=== PATIENT | male | born 1945 | race Caucasian/White ===

== ENCOUNTER 2018-08-30 13:35 | Outpatient (REF) | payer OTHER, SELFPAY ==
[2018-08-30 14:58] LABS: ALT 32 U/L (12-78); AST 18 U/L (15-37); Albumin 3.9 g/dL (3.4-5.0); Alkaline Phosphatase 101 U/L (46-116); Anion Gap 6.4 mmol/L (3-11); BUN 10 mg/dL (7-18); Bilirubin, Total 0.4 mg/dL (0.2-1.0); CO2 28.6 mmol/L (21.0-32.0); CREATININE 1.02 mg/dL (0.70-1.30); Calcium 8.8 mg/dL (8.5-10.1); Chloride 100 mmol/L (98-107); Cholesterol 154 mg/dL (50-200); Glucose 110 mg/dL (70-100); HDL Cholesterol 47 mg/dL (40-60); LDL CHOLESTEROL 84 mg/dL (<100); Potassium 4.3 mmol/L (3.5-5.1); Sodium 135 mmol/L (136-145); Triglyceride 179 mg/dL (30-150)
[2018-08-30 16:39] LABS: Hemoglobin A1C 5.8 % (4.5-6.2)
== END 2018-08-30 13:55 ==
LOC: NCHCN 13:35
PROVIDERS: PCP Nurse Practitioner; Visit Provider Nurse Practitioner
DX: I10 Essential (primary) hypertension (principal); E78.5 Hyperlipidemia, unspecified; R73.9 Hyperglycemia, unspecified
CPT/HCPCS: 80053; 80061; 83721; 83036

== ENCOUNTER 2019-09-22 08:20 | Outpatient (REF) | payer OTHER, SELFPAY ==
[2019-09-22 12:34] LABS: ALT 35 U/L (16-63); AST 17 U/L (15-37); Albumin 4.1 g/dL (3.4-5.0); Alkaline Phosphatase 93 U/L (46-116); Anion Gap 9.2 mmol/L (3-11); BUN 12 mg/dL (7-18); Bilirubin, Total 0.4 mg/dL (0.2-1.0); CO2 27.8 mmol/L (21.0-32.0); CREATININE 1.06 mg/dL (0.70-1.30); Calcium 9.1 mg/dL (8.5-10.1); Calculated LDL 55 mg/dL; Chloride 100 mmol/L (98-107); Cholesterol 126 mg/dL (50-200); Glucose 110 mg/dL (70-100); HDL Cholesterol 41 mg/dL (40-60); Potassium 4.1 mmol/L (3.5-5.1); Sodium 137 mmol/L (136-145); Triglyceride 152 mg/dL (30-150)
[2019-09-23 12:46] LABS: PSA, Screening 1.9 ng/ml (0-6.5)
== END 2019-09-22 08:40 ==
LOC: NCHCN 08:20
PROVIDERS: PCP Nurse Practitioner; Visit Provider Nurse Practitioner
DX: I10 Essential (primary) hypertension (principal); E78.5 Hyperlipidemia, unspecified; Z12.5 Encounter for screening for malignant neoplasm of prostate
CPT/HCPCS: 80053; 80061; 84153

== ENCOUNTER 2020-10-15 16:17 | Outpatient (REF) | payer OTHER, SELFPAY ==
[2020-10-15 18:29] LABS: HCT 35.8 % (40.0-50.0); HGB 12.9 g/dL (13.5-17.5); MCH 32.8 pg (27.0-33.0); MCV 91.1 fL (80-95); MPV 8.4 fL (8.0-11.0); Platelet Count 386 10^3/uL (130-400); RBC 3.93 10^6/uL (4.36-5.78); RDW-SD 37.3 fL; WBC 9.37 10^3/uL (4.4-10.8)
[2020-10-15 19:03] LABS: Bilirubin Negative (Negative); Blood Trace-intact (Negative); Clarity Clear (Clear); Glucose Negative (Negative); Ketones Negative (Negative); Leukocyte Esterase Small (Negative); Nitrite Negative (Negative)
[2020-10-15 19:09] LABS: ALT 46 U/L (16-63); AST 29 U/L (15-37); Albumin 3.5 g/dL (3.4-5.0); Alkaline Phosphatase 101 U/L (46-116); BUN 16 mg/dL (7-18); Bilirubin, Total 0.5 mg/dL (0.2-1.0); CREATININE 0.97 mg/dL (0.70-1.30); Calcium 8.5 mg/dL (8.5-10.1); Chloride 93 mmol/L (98-107); Glucose 162 mg/dL (74-106); Potassium 4.1 mmol/L (3.5-5.1); Sodium 130 mmol/L (136-145); Total Protein 6.5 g/dL (6.4-8.2); Vitamin B12 549 pg/mL (193-986)
[2020-10-15 19:36] LABS: Bacteria Rare HPF (Negative); Epithelial Cells Few HPF (Negative)
[2020-10-15 19:37] LABS: C & S Indicated? Yes; Mucus Trace (Negative)
[2020-10-15 20:01] LABS: *AMPHETAMINES SCREEN URINE Negative (Negative); *BARBITURATES SCREEN URINE POSITIVE (Negative); *BENZODIAZEPINES SCREEN URINE Negative (Negative); Cannabinoids THC Negative (Negative); Cocaine Screen,Urine Negative (Negative); METHADONE URINE SCREEN Negative (Negative); OPIATES URINE SCREEN Negative (Negative); Tricyclic Antidepressants Negative (Negative)
[2020-10-16 11:43] LABS: TSH (W/Ref FT4) 1.11 uIU/mL (0.36-3.74)
== END 2020-10-15 16:37 ==
LOC: LBN 16:17
PROVIDERS: PCP Nurse Practitioner Adult Health; Visit Provider Nurse Practitioner Adult Health
DX: F13.10 Sedative, hypnotic or anxiolytic abuse, uncomplicated (principal); R44.3 Hallucinations, unspecified; E87.1 Hypo-osmolality and hyponatremia; R41.82 Altered mental status, unspecified
CPT/HCPCS: 80053; 80307; 85027; 81003; 81015; 82607; 84443; 87086

== ENCOUNTER 2020-10-17 14:30 | Inpatient (IN) | payer OTHER, SELFPAY ==
[2020-10-17] VITALS (67 sets, daily range): BP systolic 120–216; BP diastolic 64–86; PULSE 61–89; RESP 10–28; TEMP 36.3–36.5; O2SAT 94–100
--- NOTE | 2020-10-17 15:15 | RT.EKG_ITS ---
APPROVED REPORT Exam: Resting ECG Patient Location: E HR:70 bpm ECG Measurements Heart Rate 70 AXIS MT 181 P 77 QRSd 147 QRS 22 QT 402 T 13 QTc 433 Conclusion Sinus rhythm...normal P axis, V-rate 60- 99 Right bundle branch block...QRSd>120, terminal axis(90,270) I have reviewed and interpreted ECG and agree with software generated interpretation.
--- NOTE | 2020-10-17 15:22 | W.ED.GENAD ---
Discharge Plan Disposition Patient Disposition: [facility] INPATIENT Condition: Poor Discharge Details Chief Complaint: AMS/LOC Clinical Impression: AMS (altered mental status), Acute hyponatremia, Withdrawal syndrome Admit Date/Time: 10/17/20 17:39 Admit Provider: Misha Sebastian Attending Provider: Misha Sebastian Primary Care Provider: Haritha Cortez ED Provider: Dianna Win Medical Decision Making Patient is a pleasant 75-year-old gentleman presenting today with chief complaint of altered mental status. At this time, patient is ANO x1. Patient was referred here by his primary care. Currently, they are trying to wean the patient off of his. That using phenobarbital. Tumor between primary care and neurology has been ongoing. Patient began having altered mental status after the taper has completed his phenobarbital. However, despite starting again on phenobarbital, his altered mental status is continued to deteriorate. History from the patient is impossible to obtain. Plan to reach out to family. He is reporting currently that he lives with his daughter but chart review looks like he lives with his . Do not appreciate any focal physical deficit on his physical exam but his current mental capability makes differential diagnosis difficult. Plan to begin with very broad blood work and will obtain imaging of his head. Likely, this is associated with the medication changes but that is not resolving despite the changes recently I would like to rule out other potential etiologies. We will recheck the family as well as neurology for consultation. Consulted with Dr. Fernandes. She is wondering if phenobarbital taper which she was given the chronic use of Fioricet, may have been too short. She advised the patient should have any EEG. She very nicely advised that she would be able to read the EEG tomorrow on Thanksgiving if we would be able to get the test. My clinical exam is limited secondary to patient's mental status, I do not see any evidence of acute seizure activity. However, she is concern for potential subclinical status and this is concern is what wants today get more urgent EEG. I did discuss potentially trying benzodiazepines which Dr. Fernandes was okay with. 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 He would like to hold off on the benzodiazepines until the EEG has been obtained. Secondary to organization currently, he would prefer to hold off on the EEG until tomorrow if possible. Labs reviewed. Significant for hyponatremia with sodium of 129. His phenobarbital level is 3.2. Barbiturates Positive. Spoke with Dr. Hardy who would be the accepting physician for night. He advised loading the patient with 10 eli per k I feelg of phenobarbital rather than transitioning the patient to benzodiazepine better for his withdrawal symptoms as well as potential subclinical seizure activity.. FINDINGS: Brain: Age-related involutional changes and chronic microvascular ischemic disease. No evidence for acute transcortical infarct. No mass effect or midline shift. No extra-axial collection. No acute intracranial hemorrhage. Basal cisterns are patent. Cerebral ventricles: No ventriculomegaly. Bones/joints: Unremarkable. No acute fracture. Paranasal sinuses: Visualized sinuses are unremarkable. No fluid levels. Mastoid air cells: Visualized mastoid air cells are well aerated. Soft tissues: Unremarkable. IMPRESSION: No evidence for acute transcortical infarct, acute intracranial hemorrhage, or mass effect. Dr. Hardy at bedside. Plan to admit the patient for altered mental status to the ICU. This is likely associate with withdrawal symptoms. However, there is a plan for the patient undergo EEG tomorrow in the event this could potentially be subclinical status epilepticus. I did discuss these concerns with the patient as well as his son-in-law. Patient son-in-law is currently caring for the patient's who has dementia. I did asked care management to become involved as adjust him to the large amount of increased social stressors at home as well. HPI General Mode of arrival: EMS. Date/Time Provider Initiated Documentation: 10/17/20 14:56. Limitations to Documentation: altered mental status. Information obtained by: patient, family, RN/MD (PCP called prior to arrival), RN notes reviewed and old records reviewed. HPI Narrative: Patient is a 75-year-old gentleman presenting today with complaint of altered mental status. 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 She, in conjunction with neurology, has been trying to wean the patient off this medication with phenobarbital. States that initially he had been doing quite well with this but in recent days has become more altered at home. Was endorsing flashing lights and hearing music. Patient was seen by his primary care 2 days ago at which time 60 mg of phenobarbital was restarted. Patient had completed his initial taper last week. Patient typically resides with his . He is her primary caregiver as she has a history of dementia. Son-in-law is here to assist with history. Patient is unclear to take his medications today. Related Data Home Medications Medication Instructions Recorded Confirmed lovastatin 40 mg tablet 40 mg PO QPM 01/11/20 10/17/20 omeprazole 40 mg capsule,delayed 40 mg PO DAILY 01/11/20 10/17/20 release doxazosin 8 mg tablet 8 mg PO DAILY #30 tab-cap 04/18/20 10/17/20 lisinopril 20 mg tablet 20 mg PO BID #180 tab 07/25/20 10/17/20 ondansetron HCl 4 mg tablet 4 mg PO Q8H PRN #40 tab 10/01/20 10/17/20 trazodone 50 mg tablet 50 mg PO QHS PRN #60 tab 10/01/20 10/17/20 finasteride 5 mg tablet 5 mg PO DAILY #90 tab-cap 10/03/20 10/17/20 phenobarbital 60 mg tablet 60 mg PO DAILY #14 tab MDD 60mg (1 10/15/20 10/17/20 tab) Previous Rx's Medication Instructions Recorded lisinopril 20 mg tablet 20 mg PO BID #180 tab 07/25/20 ondansetron HCl 4 mg tablet 4 mg PO Q8H PRN #40 tab 10/01/20 trazodone 50 mg tablet 50 mg PO QHS PRN #60 tab 10/01/20 finasteride 5 mg tablet 5 mg PO DAILY #90 tab-cap 10/03/20 phenobarbital 60 mg tablet 60 mg PO DAILY #14 tab MDD 60mg (1 10/15/20 tab) Allergies Allergy/AdvReac Type Severity Reaction Status Date / Time pravastatin AdvReac Intermediate Nausea Verified 10/17/20 15:20 ibuprofen AdvReac Mild Contraindic Verified 10/17/20 15:20 ated General Stated Complaint: AMS/LOC JONATHAN: 2 Review of Systems Unobtainable due to mental status [facility] Medical History (Updated 10/17/20 @ 22:58 by ZEYAD Haile) Benign neoplasm of colon Hyperplastic 2010, repeat 2020 Benign prostatic hyperplasia (04/13/13) elevated PSA; S/P BX 2002 Erectile dysfunction Gastroesophageal reflux disease Generalized osteoarthrosis Hammer toe of right foot Hard of hearing Hearing aids Headache chronic fioricet use Hiatal hernia Hyperlipidemia Hypertensive disorder Injury of head (10/23/1951) coma x 7 days Nasal polyp polypectomy x 2 Prostatitis (01/03/13) Smoker pipe Spinal stenosis C-spine Stress at home Trigger finger, right repaired by Dr Palacios Surgical History Hx of cholecystectomy (~05/2015) S/P rotator cuff repair Family History Sister Colon cancer Rheumatoid arthritis Father Heart disease Social History Smoking/Tobacco Use Status: Former Tobacco Use Tobacco: How many years used: 25 Smoking risk assessment performed?: Yes Alcohol Intake: never Drug use: Never Substance use type: does not use Adopted: No Caregiver/Support person: No Foster care: No Household members: spouse Housing: house Number of Children: 3 Communication Needs: Hard of Hearing Do you need help understanding health information?: Never 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 Head: normal to inspection, no palpable skull fracture, normocephalic and atraumatic Ears: hearing grossly normal bilaterally, external ears normal and TM's normal bilaterally General nose exam: external nose normal Mouth: oral mucosae normal and moist mucous membranes Throat: posterior oropharynx normal Eyes Alignment and Position: alignment normal Periorbital: periorbital findings normal Eyelids: eyelids normal Sclera: sclerae normal Cornea: corneas normal Pupils: PERRL EOM: EOM intact bilaterally Neck Neck: normal visual inspection, full ROM, no lymphadenopathy and no meningeal signs Resp Effort & Inspection: normal respiratory effort, able to speak in complete sentences and no respiratory distress Auscultation: clear to auscultation bilaterally, no rales, no rhonchi and no wheezes Cardio Rate: regular rate Rhythm: regular rhythm Heart Sounds: S1 normal and S2 normal GI Inspection: normal to inspection and non-distended Palpation: soft, no hepatosplenomegaly, not firm, no guarding, not rigid and nontender Percussion: normal to percussion Auscultation: normal bowel sounds Back/Spine/Pelvis Cervical Spine: normal cervical lordosis and cervical ROM normal Skin General skin exam: no rashes or lesions noted Neuro General: patient alert, patient awake, oriented Patient Orientation: Person and Confused and moves all extremities Cranial Nerves: PERRL, accommodation normal, EOM intact bilaterally, no nystagmus, facial strength normal, tongue midline and able to rotate head bilaterally Cognition: abnormal cognition Speech: abnormal speech Gait: gait abnormal (not assessed) Motor: muscle tone normal throughout, strength 5/5 throughout, no pronator drift, no movement abnormalities noted and no fasciculations Sensory Exam: no sensory deficits noted Extrem General: normal to inspection, capillary refill normal, no pedal edema and no calf tenderness Psych Appearance: grossly normal and well kempt Mental Status: mental status grossly normal Speech and Movement: speech and movement normal Course Vital Signs Vital signs: Vital Signs Temperature 36.4 C L 10/17/20 15:02 Pulse 73 10/17/20 15:02 Respiratory Rate 20 10/17/20 15:02 Blood Pressure 164/86 H 10/17/20 15:02 Pulse Oximetry 99 10/17/20 15:02 Temperature 36.4 C L 10/17/20 15:02 Temperature Source Temporal Artery Scan 10/17/20 15:02 Pulse 73 10/17/20 15:02 Respiratory Rate 20 10/17/20 15:02 Blood Pressure 164/86 H 10/17/20 15:02 Blood Pressure Position Sitting 10/17/20 15:02 Pulse Oximetry 99 10/17/20 15:02 Oxygen Delivery Method Room Air 10/17/20 15:02 Oxygen Flow Rate 0 10/17/20 15:02 Pain Level 0 10/17/20 15:02
[2020-10-17 15:37] LABS: Abs Immature Grans 0.03 10^3/uL (0.0-0.06); Absolute Basophil Count 0.05 10^3/uL (0.0-0.2); Absolute Eosinophil Count 0.01 10^3/uL (0.0-0.7); Absolute Lymphocyte Count 1.32 10^3/uL (1.2-3.4); Absolute Monocyte Count 1.08 10^3/uL (0.1-0.8); Absolute Neutrophil Count 7.89 10^3/uL (1.2-6.7); Basophils % 0.5; Eosinophils % 0.1; HCT 37.9 % (40.0-50.0); HGB 13.9 g/dL (13.5-17.5); Immature Grans % 0.3; Lymphocytes % 12.7; MCH 33.1 pg (27.0-33.0); MCHC 36.7 % (32.0-36.0); MCV 90.2 fL (80-95); MPV 7.9 fL (8.0-11.0); Monocytes % 10.4; Nucleated RBC 0 %; Platelet Count 413 10^3/uL (130-400); RDW 11.1 % (11.8-14.1); RDW-SD 36.7 fL; WBC 10.38 10^3/uL (4.4-10.8)
[2020-10-17 15:42] LABS: Bilirubin Negative (Negative); Blood Trace-intact (Negative); Clarity Clear (Clear); Glucose Negative (Negative); Ketones 15 mg/dL (Negative); Leukocyte Esterase Small (Negative); Nitrite Negative (Negative); Urobilinogen 0.2 EU/dL (Up TO 0.2)
[2020-10-17 15:52] LABS: Bacteria Negative HPF (Negative); Epithelial Cells Rare HPF (Negative); RBC 0-2 HPF (0-2)
[2020-10-17 15:53] LABS: C & S Indicated? Yes; Crystals Negative HPF (Negative); Mucus Negative (Negative)
--- NOTE | 2020-10-17 16:00 | DI.CT_ITS ---
EXAM: CT HEAD WO altered mental status CLINICAL HISTORY: AMS. TECHNIQUE: Imaging Protocol: Axial computed tomography images with coronal and sagittal reformatted images were created and reviewed COMPARISON: CR BILATERAL HIPS ADULT from 12/14/2012 CT ABD PELVIS WITH CONTRAST from 01/31/2013 IMPRESSION: There is no evidence of skull fracture nor fluid the visualized paranasal sinuses. No evidence of intracranial hemorrhage, mass effect, or shift of midline structures. No extra-axial f luid collections. Ventricles are not enlarged or shifted. There is periventricular hypodensity in the right frontal lobe white matter forceps and a lesser amou nt of white matter disease in the left periventricular white matter. No mass effect. IMPRESSION: 1. ASYMMETRIC PERIVENTRICULAR HYPODENSITY IN THE RIGHT FRONTAL LOBE, MOST PROBABLY RELATED TO PRIOR I SCHEMIC EVENT. NO HEMORRHAGE. IF CLINICALLY INDICATED FOLLOW-UP MRI CAN BE PERFORMED FOR ADDED SPECIF ICITY. Incidental Findings RADIATION DOSE DELIVERED: 750.92mGy.cm Total DLP DATA REPOSITORY: All CT scans at this facility are submitted to the National Radiology Data Registry (NRDR) Dose Index Registry (DIR) with the [employer] ([employer]). RADIATION OPTIMIZATION: All CT scans at this facility use at least one of these dose optimization te chniques: automated exposure control; mA and/or kV adjustment per patient size (includes targeted exa ms where dose is matched to clinical indication); or iterative reconstruction.
[2020-10-17 16:03] LABS: PHENOBARBITAL 3.2 ug/mL (15.0-40.0)
[2020-10-17 16:06] LABS: ALT 54 U/L (16-63); AST 37 U/L (15-37); Albumin 3.8 g/dL (3.4-5.0); Alkaline Phosphatase 133 U/L (46-116); Anion Gap 6.7 mmol/L (3-11); BUN 13 mg/dL (7-18); Bilirubin, Total 0.5 mg/dL (0.2-1.0); CO2 28.3 mmol/L (21.0-32.0); CREATININE 0.99 mg/dL (0.70-1.30); Calcium 8.8 mg/dL (8.5-10.1); Chloride 94 mmol/L (98-107); Glucose 133 mg/dL (74-106); Magnesium 1.9 mg/dL (1.8-2.4); Potassium 3.6 mmol/L (3.5-5.1); Sodium 129 mmol/L (136-145); Total Protein 7.7 g/dL (6.4-8.2)
[2020-10-17 16:10] LABS: *AMPHETAMINES SCREEN URINE Negative (Negative); *BARBITURATES SCREEN URINE POSITIVE (Negative); *BENZODIAZEPINES SCREEN URINE Negative (Negative); Cannabinoids THC Negative (Negative); Cocaine Screen,Urine Negative (Negative); METHADONE URINE SCREEN Negative (Negative); OPIATES URINE SCREEN Negative (Negative)
[2020-10-17 16:11] LABS: Ammonia < 10 umol/L (11-32); Troponin I < 0.05 ng/mL (<0.06)
[2020-10-17 16:12] LABS: Tricyclic Antidepressants Negative (Negative)
[2020-10-17 16:15] LABS: ETHANOL BLOOD 4.2 mg/dL (<3); TSH 0.69 uIU/mL (0.36-3.74)
--- NOTE | 2020-10-17 17:28 | DI.VRAD_ITS ---
PROCEDURE INFORMATION: Exam: CT Head Without Contrast Exam date and time: 10/17/2020 4:42 PM Age: 75 years old Clinical indication: Altered mental status/memory loss TECHNIQUE: Imaging protocol: Computed tomography of the head without contrast. COMPARISON: No relevant prior studies available. FINDINGS: Brain: Age-related involutional changes and chronic microvascular ischemic disease. No evidence for acute transcortical infarct. No mass effect or midline shift. No extra-axial collection. No acute intracranial hemorrhage. Basal cisterns are patent. Cerebral ventricles: No ventriculomegaly. Bones/joints: Unremarkable. No acute fracture. Paranasal sinuses: Visualized sinuses are unremarkable. No fluid levels. Mastoid air cells: Visualized mastoid air cells are well aerated. Soft tissues: Unremarkable. IMPRESSION: No evidence for acute transcortical infarct, acute intracranial hemorrhage, or mass effect. Dictated and Authenticated by: Jose Lamb MD. Ordering:ENMA Bustamante MD
[2020-10-17] MEDS: Normal Saline Flush 10 ML SYR IVP (17:42)
[2020-10-17] MEDS: PHENobarbital 130 MG/ML VIAL 650 MG IVP (17:42)
[2020-10-17] MEDS: Normal Saline 50 ML 200 ML (17:43)
[2020-10-17] MEDS: Normal Saline 1,000 ML 125 ML IV (18:02)
--- NOTE | 2020-10-17 19:04 | W.PM.HP.N ---
Date of service: 10/17/20 Time of Service: 19:05 Assessment and Plan Assessment and plan (1) Hyponatremia: Status: Acute Assessment and plan: Unclear etiology. Possible SIADH (2) Encephalopathy acute: Status: Acute Assessment and plan: Differential diagnosis include acute barbiturate withdrawal versus subclinical seizure. We will proceed with loading dose of phenobarbital at 10 mg/kg IV over 30 minutes. This should achieve a therapeutic level of his phenobarbital. We will start him on oral phenobarbital at a dose of 2 mg/kg/day in divided doses. We will start him at 64.8 mg tablet twice a day. I will get repeat phenobarbital level after his iv bolus to asses that he has achieved at least a level of 15 mcg/mL. I would avoid concommittant use of benzodiazepines in this patient who has been on phenobarbital d/t concern of over sedation and potential for respiratory depression which may necessitate emergent intubation. If he is treated w/ phenobarbital alone, it is unlikely that he will become oversedated particularly if he is given proper loading dose and doseage less than 30 mg/kg are used. If he has visible seizure then he may need benzodiazepines in addition to his phenobarbital and I would add Keppra at that point to prevent seizure activity. EEG will be done in the a.m. and per the ER, Dr. Fernandes has indicated that she will read the EEG. History of Present Illness History of Present Illness Chief Complaint: acute mental status change Narrative: 75-year-old gentleman with a history of chronic Fioricet use who was transitioned over to phenobarbital to try to wean him off of his chronic Fioricet use. Patient has a past medical history significant for spinal stenosis as well as essential hypertension and a remote closed head injury as a child in which she was in a coma for a week at the age of 66 years old. His primary care provider Haritha Arevalo was working with Dr. Alyssa Fernandes to try to wean him off of Fioricet and he was put on a phenobarbital taper. He was rapidly tapered off of phenobarbital when he was followed up by his PCP and noted to have altered mental status which was attributed to rapid wean off of phenobarbital. He has no known history of seizure disorder. Patient reportedly had taken Fioricet for many years for headaches. When he was tapered off the phenobarbital he began having visual and auditory hallucinations for the past week and was put back on the phenobarbital. His stepson reported that the patient tried to strangle his dog. He was brought in to the emergency department at [facility] for further evaluation. Work-up included noncontrast CT scan of his head which showed no evidence for acute transcortical infarct no intracranial hemorrhage or mass-effect. ER personnel evaluated the patient and could not find a focal neurologic signs of a CVA. He had no loss of bowel or bladder control and had no visible tonic-clonic activity. He was noted by nursing staff to have some myoclonic movement. ZEYAD Haile from the emergency department spoke with Dr. Alyssa Fernandes, neurologist who expressed some concerns for possible subclinical seizure and that he may be in a postictal state. She recommend getting an EEG. EEG cannot be obtained today but will be obtained tomorrow morning. Dianna Win discussed with Dr. Fernandes about possible use of benzodiazepines however I discussed the case with Dianna Win and I feel that the patient would be better served with a loading dose of phenobarbital since his level is subtherapeutic. His labs including a CBC, CMP, urine tox screen, phenobarbital level were obtained. His CBC is unremarkable.His CMP is remarkable for mild hyponatremia with serum sodium of 130 with a repeat level of 129 after a normal saline fluid bolus. BUN and creatinine and LFTs were normal. His ammonia level was less than 10. TSH was normal at 0.69. Urine toxicology screen was positive for barbiturates but negative for all other drugs of abuse other than an ethanol level of 4.2 and a phenobarbital level of 3.2. I feel that the patient should be given a loading dose of phenobarbital 10 mg/kg IV bolus over 30 minutes which should achieve at least a therapeutic level of 15 mcg/mL. Given that he already has a phenobarbital level of 3.2 this should get an adequate level to prevent seizures and would also treat his acute barbiturate withdrawal. We will get an EEG in the morning and he will be monitored overnight in the intensive care unit. Is unclear as to the etiology of his hyponatremia as he is not currently on a diuretic. I will put him on fluid restriction and monitor his electrolytes. We will also send off serum osmolality and urine osmolality tonight. Review of Systems Unobtainable due to mental condition [facility] Medical History (Updated 11/25/20 @ 19:25 by Misha Sebastian) Benign neoplasm of colon Hyperplastic 2010, repeat 2020 Benign prostatic hyperplasia (04/13/13) elevated PSA; S/P BX 2002 Erectile dysfunction Gastroesophageal reflux disease Generalized osteoarthrosis Hammer toe of right foot Hard of hearing Hearing aids Headache chronic fioricet use Hiatal hernia Hyperlipidemia Hypertensive disorder Injury of head (10/23/1951) coma x 7 days Nasal polyp polypectomy x 2 Prostatitis (01/03/13) Smoker pipe Spinal stenosis C-spine Stress at home Trigger finger, right repaired by Dr Palacios Surgical History Hx of cholecystectomy (~05/2015) S/P rotator cuff repair Family History Sister Colon cancer Rheumatoid arthritis Father Heart disease Social History Smoking/Tobacco Use Status: Former Tobacco Use Tobacco: How many years used: 25 Smoking risk assessment performed?: Yes Alcohol Intake: never Drug use: Never Substance use type: does not use Adopted: No Caregiver/Support person: No Foster care: No Household members: spouse Housing: house Number of Children: 3 Communication Needs: Hard of Hearing Do you need help understanding health information?: Never 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 Meds Home Medications and Allergies Home Medications Medication Instructions Recorded Confirmed Type lovastatin 40 mg tablet 40 mg PO QPM 01/11/20 10/17/20 History omeprazole 40 mg capsule,delayed 40 mg PO DAILY 01/11/20 10/17/20 History release doxazosin 8 mg tablet 8 mg PO DAILY #30 tab-cap 04/18/20 10/17/20 History lisinopril 20 mg tablet 20 mg PO BID #180 tab 07/25/20 10/17/20 Rx ondansetron HCl 4 mg tablet 4 mg PO Q8H PRN #40 tab 10/01/20 10/17/20 Rx trazodone 50 mg tablet 50 mg PO QHS PRN #60 tab 10/01/20 10/17/20 Rx finasteride 5 mg tablet 5 mg PO DAILY #90 tab-cap 10/03/20 10/17/20 Rx phenobarbital 60 mg tablet 60 mg PO DAILY #14 tab MDD 60mg (1 10/15/20 10/17/20 Rx tab) Allergies Allergy/AdvReac Type Severity Reaction Status Date / Time pravastatin AdvReac Intermediate Nausea Verified 10/17/20 15:20 ibuprofen AdvReac Mild Contraindic Verified 10/17/20 15:20 ated Exam Narrative Exam Narrative: Elderly gentleman lying in semifowler position on a gurney in the emergency department. He is awake and alert but only oriented to person. He thinks he is at [facility] is unable to give me the correct date. He cannot tell me why he is here in the hospital. He seems to perseverate on certain topics such as his medicines and reports being given the wrong medications. He has trouble getting a complete sentence out or completing his thoughts. He does seem to follow simple commands such as opening his eyes or smiling when I asked him to or raising his arms or grabbing my hand when asked to. HEENT reveals no facial asymmetry. Full extraocular motion intact. Visual jama intact to confrontation. Pupils equally round and reactive. Normal tongue movement. Neck is supple nontender no JVD normal carotid pulses no thyromegaly. Lungs are clear to auscultation Heart regular rate and rhythm without murmur rub or gallop. Abdomen soft nontender NABS no palpable masses no bruits. Lower extremities without peripheral cyanosis or edema. Neuro exam is grossly intact no focal motor deficits in either upper or lower extremities. Normal range of motion. No facial asymmetry. Extraocular motion intact. Speech is clear but at times nonsensical and tangential. With holding his hands outward his eyes closed there is no pronator drift. No tremors. Babinski reflex absent. Sensation grossly intact. Results Labs Result diagrams: 10/17/20 15:20 10/17/20 15:20 Labs: Laboratory Results - last 24 hr 10/17/20 10/17/20 10/17/20 15:20 15:20 15:20 WBC RBC Hgb Hct MCV MCH MCHC RDW Plt Count MPV Immature Gran % Neutrophils % Lymphocytes % Monocytes % Eosinophils % Basophils % Nucleated RBC % Absolute Neutrophils Absolute Lymphocytes Absolute Monocytes Absolute Eosinophils Absolute Basophils VBG Lactate Sodium 129 L Potassium 3.6 Chloride 94 L Carbon Dioxide 28.3 Anion Gap 6.7 BUN 13 Creatinine 0.99 Estimated GFR/1.73 m2 >= 60.00 Glucose 133 H Calcium 8.8 Magnesium 1.9 Total Bilirubin 0.5 AST 37 ALT 54 Alkaline Phosphatase 133 H Ammonia < 10 L Troponin I < 0.05 Total Protein 7.7 Albumin 3.8 TSH 0.69 Urine Color Urine Clarity Urine pH Ur Specific [place] Urine Protein Urine Ketones Urine Blood Urine Nitrite Urine Bilirubin Urine Urobilinogen Ur Leukocyte Esterase Urine RBC Urine WBC Ur Epithelial Cells Urine Crystals Urine Bacteria Urine Mucus Ur Culture Indicated? Urine Glucose Urine Opiates Screen Urine Methadone Screen Ur Barbiturates Screen Ur Tricyclics Screen Ur Amphetamines Screen Phenobarbital U Benzodiazepines Scrn Urine Cocaine Screen Ur THC Screen Ethyl Alcohol 4.2 10/17/20 10/17/20 10/17/20 15:20 15:20 15:20 WBC 10.38 RBC 4.20 L Hgb 13.9 Hct 37.9 L MCV 90.2 MCH 33.1 H MCHC 36.7 H RDW 11.1 L Plt Count 413 H MPV 7.9 L Immature Gran % 0.3 Neutrophils % 76.0 Lymphocytes % 12.7 Monocytes % 10.4 Eosinophils % 0.1 Basophils % 0.5 Nucleated RBC % 0 Absolute Neutrophils 7.89 H Absolute Lymphocytes 1.32 Absolute Monocytes 1.08 H Absolute Eosinophils 0.01 Absolute Basophils 0.05 VBG Lactate Sodium Potassium Chloride Carbon Dioxide Anion Gap BUN Creatinine Estimated GFR/1.73 m2 Glucose Calcium Magnesium Total Bilirubin AST ALT Alkaline Phosphatase Ammonia Troponin I Total Protein Albumin TSH Urine Color Urine Clarity Urine pH Ur Specific [place] Urine Protein Urine Ketones Urine Blood Urine Nitrite Urine Bilirubin Urine Urobilinogen Ur Leukocyte Esterase Urine RBC Urine WBC Ur Epithelial Cells Urine Crystals Urine Bacteria Urine Mucus Ur Culture Indicated? Urine Glucose Urine Opiates Screen Negative Urine Methadone Screen Negative Ur Barbiturates Screen Positive A Ur Tricyclics Screen Negative Ur Amphetamines Screen Negative Phenobarbital 3.2 L U Benzodiazepines Scrn Negative Urine Cocaine Screen Negative Ur THC Screen Negative Ethyl Alcohol 10/17/20 10/17/20 15:20 15:20 WBC RBC Hgb Hct MCV MCH MCHC RDW Plt Count MPV Immature Gran % Neutrophils % Lymphocytes % Monocytes % Eosinophils % Basophils % Nucleated RBC % Absolute Neutrophils Absolute Lymphocytes Absolute Monocytes Absolute Eosinophils Absolute Basophils VBG Lactate 1.0 Sodium Potassium Chloride Carbon Dioxide Anion Gap BUN Creatinine Estimated GFR/1.73 m2 Glucose Calcium Magnesium Total Bilirubin AST ALT Alkaline Phosphatase Ammonia Troponin I Total Protein Albumin TSH Urine Color Yellow Urine Clarity Clear Urine pH 7.0 Ur Specific [place] 1.020 Urine Protein 30 H Urine Ketones 15 H Urine Blood Trace-intact H Urine Nitrite Negative Urine Bilirubin Negative Urine Urobilinogen 0.2 Ur Leukocyte Esterase Small H Urine RBC 0-2 Urine WBC 5-10 Ur Epithelial Cells Rare Urine Crystals Negative Urine Bacteria Negative Urine Mucus Negative Ur Culture Indicated? Yes Urine Glucose Negative Urine Opiates Screen Urine Methadone Screen Ur Barbiturates Screen Ur Tricyclics Screen Ur Amphetamines Screen Phenobarbital U Benzodiazepines Scrn Urine Cocaine Screen Ur THC Screen Ethyl Alcohol Last Vital Signs Temp 36.4 C L 10/17/20 17:52 Pulse 68 10/17/20 18:15 Resp 10 L 10/17/20 18:15 BP 140/77 10/17/20 18:15 Pulse Ox 98 10/17/20 18:15 COVID-19 Screening Have you, or household traveled for leisure in last 14 days?: No Had IN PERSON contact w/suspected or confirmed C-19 person: No
[2020-10-17 19:48] LABS: PHENOBARBITAL 2.8 ug/mL (15.0-40.0)
[2020-10-17] MEDS: Enoxaparin 40 MG/0.4 ML SYR SC (22:36)
[2020-10-17] MEDS: Lisinopril 20 MG TAB PO (22:37)
[2020-10-17] MEDS: Lovastatin 40 MG TAB PO (22:37)
[2020-10-18] VITALS (68 sets, daily range): BP systolic 100–184; BP diastolic 42–88; PULSE 56–111; RESP 13–29; TEMP 36.2–36.7; O2SAT 95–100
[2020-10-18 02:24] LABS: COVID-19 RT-PCR UVMMC Result Negative (Negative)
[2020-10-18 07:07] LABS: Anion Gap 7.2 mmol/L (3-11); BUN 10 mg/dL (7-18); CO2 26.8 mmol/L (21.0-32.0); CREATININE 0.97 mg/dL (0.70-1.30); Calcium 8.4 mg/dL (8.5-10.1); Chloride 97 mmol/L (98-107); Glucose 102 mg/dL (74-106); PHENOBARBITAL 15.2 ug/mL (15.0-40.0); Potassium 3.3 mmol/L (3.5-5.1); Sodium 131 mmol/L (136-145)
--- NOTE | 2020-10-18 07:39 | PDOC.CMIN ---
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 He has family locally who are supportive including his daughter, Eliazar and step son, Zachary. He is independent at baseline in the community. CURRENT FUNCTIONAL STATUS:: Iker continues to struggle to communicate verbally, though word finding is improving per RN. He remains in the ICU, closely monitored at this time. He was sitting in his chair when CM met with him, he shared concerns about his 's level of functioning and of his own as well as concerns around their home and managing the needs (washer, refridgerator) on his own. He was forthcoming with information and friendly in interaction. ADVANCE DIRECTIVES:: None on file at [facility], patient unable to discuss at this time. Daughter (currently unavailable, and son on HIPPA) Has patient been provided with info about the portal/API?: Yes Did the patient sign up for the portal?: Yes (Previously) CODE STATUS:: Full Code INSURANCE COVERAGE / FINANCIAL ISSUES:: [facility] MCR replacement PRIMARY CARE PHYSICIAN:: Haritha Cortez POTENTIAL DISCHARGE NEEDS:: Follow up appointment with PCP and neurology. PATIENT/FAMILY EDUCATION NEEDS:: Review discharge instructions, discuss Ask Me Three. ANTICIPATED BARRIERS TO DISCHARGE:: None identified. TRANSPORTATION:: Via private vehicle with family. PLAN:: Iker continues to be closely monitored with some noted improvement in his ability to communicate. Anticipate once he has cleared mentally, he will be permitted to return home with close follow up with his community based providers. Possible outpatient Palliative consult, increased home support referrals. CM continues to follow.
[2020-10-18] MEDS: Omeprazole 20 MG CAPCR 40 MG PO (08:37)
[2020-10-18] MEDS: Lisinopril 20 MG TAB PO ×2 (08:37→20:11)
[2020-10-18] MEDS: Potassium Chloride 20 MEQ TABCR 40 MEQ PO (08:38)
[2020-10-18] MEDS: Doxazosin 2 MG TAB 8 MG PO (08:38)
[2020-10-18] MEDS: PHENobarbital 64.8 MG TAB PO ×2 (08:38→20:10)
[2020-10-18] MEDS: Finasteride 5 MG TAB PO (08:38)
--- NOTE | 2020-10-18 09:04 | W.PM.PROGNOT ---
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 Patient was still receiving normal saline through the night even though I discontinued this yesterday. I intended to restrict his free fluids. His serum sodium remains low at 130 but improved. I will continue to restrict his free fluid and repeat his BMP in the a.m. (2) Encephalopathy acute: Status: Acute Assessment and plan: Probably d/t acute barbituate withdrawal. Per Dr. Fernandes, his EEG did not show any seizure activity. Phenobarbital level is now at 15 mcg/mL and therefore is at the low end of therapeutic. I will continue him on oral phenobarbital at 64.8 mg bid. Repeat level in 3 to 4 days. If his cognitive level continues to improve, I expect him to be discharge in 1 to 2 days. Subjective Subjective Interval history since last seen: Patient is more engaged in conversation, although his conversations remain rather disjointed however his speech is more fluent and there are some complete thoughts to his statements. He seems to perseverate on his , his daughter Eliazar Saini, rehab. He recalls having hallucinations involving a helicopter but states that it was a hallucination. He remains cooperative and is not agitated. He speaks of his tenant. Exam Narrative Exam Narrative: A&Ox person, but not to place or time nor circumstances yet Lungs: clear Heart: RRR, no murmur, rub or gallop Abdomen: soft and nontender Neuro: no focal CN deficits. no tremors, no focal motor findings. still somewhat confused but more coherent speech today Objective Last Vital Signs Temp 36.6 C 10/18/20 03:50 Pulse 64 10/18/20 05:01 Resp 22 10/18/20 06:25 BP 153/70 H 10/18/20 05:01 Pulse Ox 97 10/18/20 05:10 Laboratory Results - last 24 hr 10/17/20 10/17/20 10/17/20 15:20 15:20 15:20 WBC RBC Hgb Hct MCV MCH MCHC RDW Plt Count MPV Immature Gran % Neutrophils % Lymphocytes % Monocytes % Eosinophils % Basophils % Nucleated RBC % Absolute Neutrophils Absolute Lymphocytes Absolute Monocytes Absolute Eosinophils Absolute Basophils VBG Lactate Sodium 129 L Potassium 3.6 Chloride 94 L Carbon Dioxide 28.3 Anion Gap 6.7 BUN 13 Creatinine 0.99 Estimated GFR/1.73 m2 >= 60.00 Glucose 133 H Calcium 8.8 Magnesium 1.9 Total Bilirubin 0.5 AST 37 ALT 54 Alkaline Phosphatase 133 H Ammonia < 10 L Troponin I < 0.05 Total Protein 7.7 Albumin 3.8 TSH 0.69 Urine Color Urine Clarity Urine pH Ur Specific [place] Urine Protein Urine Ketones Urine Blood Urine Nitrite Urine Bilirubin Urine Urobilinogen Ur Leukocyte Esterase Urine RBC Urine WBC Ur Epithelial Cells Urine Crystals Urine Bacteria Urine Mucus Ur Culture Indicated? Urine Glucose Urine Opiates Screen Urine Methadone Screen Ur Barbiturates Screen Ur Tricyclics Screen Ur Amphetamines Screen Phenobarbital U Benzodiazepines Scrn Urine Cocaine Screen Ur THC Screen Ethyl Alcohol 4.2 COVID-19 PCR Nasopharyn COVID-19 PCR Ref Test Perform Site 10/17/20 10/17/20 10/17/20 15:20 15:20 15:20 WBC 10.38 RBC 4.20 L Hgb 13.9 Hct 37.9 L MCV 90.2 MCH 33.1 H MCHC 36.7 H RDW 11.1 L Plt Count 413 H MPV 7.9 L Immature Gran % 0.3 Neutrophils % 76.0 Lymphocytes % 12.7 Monocytes % 10.4 Eosinophils % 0.1 Basophils % 0.5 Nucleated RBC % 0 Absolute Neutrophils 7.89 H Absolute Lymphocytes 1.32 Absolute Monocytes 1.08 H Absolute Eosinophils 0.01 Absolute Basophils 0.05 VBG Lactate Sodium Potassium Chloride Carbon Dioxide Anion Gap BUN Creatinine Estimated GFR/1.73 m2 Glucose Calcium Magnesium Total Bilirubin AST ALT Alkaline Phosphatase Ammonia Troponin I Total Protein Albumin TSH Urine Color Urine Clarity Urine pH Ur Specific [place] Urine Protein Urine Ketones Urine Blood Urine Nitrite Urine Bilirubin Urine Urobilinogen Ur Leukocyte Esterase Urine RBC Urine WBC Ur Epithelial Cells Urine Crystals Urine Bacteria Urine Mucus Ur Culture Indicated? Urine Glucose Urine Opiates Screen Negative Urine Methadone Screen Negative Ur Barbiturates Screen Positive A Ur Tricyclics Screen Negative Ur Amphetamines Screen Negative Phenobarbital 3.2 L U Benzodiazepines Scrn Negative Urine Cocaine Screen Negative Ur THC Screen Negative Ethyl Alcohol COVID-19 PCR Nasopharyn COVID-19 PCR Ref Test Perform Site 10/17/20 10/17/20 10/17/20 15:20 15:20 16:30 WBC RBC Hgb Hct MCV MCH MCHC RDW Plt Count MPV Immature Gran % Neutrophils % Lymphocytes % Monocytes % Eosinophils % Basophils % Nucleated RBC % Absolute Neutrophils Absolute Lymphocytes Absolute Monocytes Absolute Eosinophils Absolute Basophils VBG Lactate 1.0 Sodium Potassium Chloride Carbon Dioxide Anion Gap BUN Creatinine Estimated GFR/1.73 m2 Glucose Calcium Magnesium Total Bilirubin AST ALT Alkaline Phosphatase Ammonia Troponin I Total Protein Albumin TSH Urine Color Yellow Urine Clarity Clear Urine pH 7.0 Ur Specific [place] 1.020 Urine Protein 30 H Urine Ketones 15 H Urine Blood Trace-intact H Urine Nitrite Negative Urine Bilirubin Negative Urine Urobilinogen 0.2 Ur Leukocyte Esterase Small H Urine RBC 0-2 Urine WBC 5-10 Ur Epithelial Cells Rare Urine Crystals Negative Urine Bacteria Negative Urine Mucus Negative Ur Culture Indicated? Yes Urine Glucose Negative Urine Opiates Screen Urine Methadone Screen Ur Barbiturates Screen Ur Tricyclics Screen Ur Amphetamines Screen Phenobarbital 2.8 L U Benzodiazepines Scrn Urine Cocaine Screen Ur THC Screen Ethyl Alcohol COVID-19 PCR Nasopharyn COVID-19 PCR Ref Test Perform Site 10/17/20 10/18/20 18:10 06:30 WBC RBC Hgb Hct MCV MCH MCHC RDW Plt Count MPV Immature Gran % Neutrophils % Lymphocytes % Monocytes % Eosinophils % Basophils % Nucleated RBC % Absolute Neutrophils Absolute Lymphocytes Absolute Monocytes Absolute Eosinophils Absolute Basophils VBG Lactate Sodium 131 L Potassium 3.3 L Chloride 97 L Carbon Dioxide 26.8 Anion Gap 7.2 BUN 10 Creatinine 0.97 Estimated GFR/1.73 m2 >= 60.00 Glucose 102 Calcium 8.4 L Magnesium Total Bilirubin AST ALT Alkaline Phosphatase Ammonia Troponin I Total Protein Albumin TSH Urine Color Urine Clarity Urine pH Ur Specific [place] Urine Protein Urine Ketones Urine Blood Urine Nitrite Urine Bilirubin Urine Urobilinogen Ur Leukocyte Esterase Urine RBC Urine WBC Ur Epithelial Cells Urine Crystals Urine Bacteria Urine Mucus Ur Culture Indicated? Urine Glucose Urine Opiates Screen Urine Methadone Screen Ur Barbiturates Screen Ur Tricyclics Screen Ur Amphetamines Screen Phenobarbital 15.2 U Benzodiazepines Scrn Urine Cocaine Screen Ur THC Screen Ethyl Alcohol COVID-19 PCR Negative Nasopharyn COVID-19 PCR Not Applicable Ref Test Perform Site [facility] lab
[2020-10-18] MEDS: Potassium Chloride 20 MEQ TABCR PO ×2 (10:06→20:11)
[2020-10-18] MEDS: Aspirin E.C. 325 MG TABEC PO (10:06)
--- NOTE | 2020-10-18 11:25 | PDOC.EEG_ITS ---
Neurology EEG EEG: [facility] Department of Neurology INPATIENT EEG REPORT Date of Recordin10/18/20 Interpreting Physician: Dr. Alyssa Fernandes Reason for study: Mr. Najera is a 75 year-old man admitted with altered mental status in the setting of rapid phenobarbital weaning, concerning for status epilepticus. Current Medications: Current Medications Acetaminophen (Acetaminophen 325 Mg Tab) 325 - 650 mg PO Q4H PRN PRN Al Hydrox/Mg Hydrox/Simethicone (Mylanta Suspension 30 Ml Cup) 30 ml PO Q2H PRN PRN Aspirin (Aspirin E.C. 81 Mg Tabec) 81 mg PO DAILY [facility] Diazepam (Diazepam 10 Mg/2 Ml Syr) 5 mg IVP ONCE ONE Stop: 10/19/20 07:01 Dimethicone/Zinc Oxide (Angelina Protect Cream 142 Gm Tube) 0 gm TP PRN PRN Dimethicone/Zinc Oxide (Angelina Protect Cream 142 Gm Tube) 0 gm TP PRN PRN Docusate Sodium (Docusate Sodium 100 Mg Cap) 100 mg PO TID PRN PRN Doxazosin Mesylate (Doxazosin 2 Mg Tab) 8 mg PO DAILY [facility] Last Admin: 10/18/20 08:38 Dose: 8 mg Documented by: Enoxaparin Sodium (Enoxaparin 40 Mg/0.4 Ml Syr) 40 mg SC Q24H [facility] Last Admin: 10/17/20 22:36 Dose: 40 mg Documented by: Finasteride (Finasteride 5 Mg Tab) 5 mg PO DAILY [facility] Last Admin: 10/18/20 08:38 Dose: 5 mg Documented by: IV Miscellaneous Supplies (Iv Access) 1 each IV DIRECTED [facility] Lisinopril (Lisinopril 20 Mg Tab) 20 mg PO BID [facility] Last Admin: 10/18/20 08:37 Dose: 20 mg Documented by: Lovastatin (Lovastatin 40 Mg Tab) 40 mg PO QPM [facility] Last Admin: 10/17/20 22:37 Dose: 40 mg Documented by: Magnesium Hydroxide (Milk Of Magnesia 30 Ml Cup) 30 ml PO DAILY PRN PRN Melatonin (Melatonin 3 Mg Tab) 9 mg PO HS PRN PRN PRN Reason: Sleep Omeprazole (Omeprazole 20 Mg Capcr) 40 mg PO DAILY@0730 [facility] Last Admin: 10/18/20 08:37 Dose: 40 mg Documented by: Phenobarbital (Phenobarbital 64.8 Mg Tab) 64.8 mg PO BID KRYSTLE Last Admin: 10/18/20 08:38 Dose: 64.8 mg Documented by: Polyethylene Glycol (Polyethylene Glycol 3350 17 Gm Packet) 17 gm PO DAILY PRN PRN PRN Reason: Constipation Potassium Chloride (Potassium Chloride 20 Meq Tabcr) 20 meq PO BID KRYSTLE Sodium Chloride (Normal Saline Flush 10 Ml Syr) 0 ml IVP PRN PRN Last Admin: 10/17/20 17:42 Dose: 10 ml Documented by: METHODS: A 21 channel digitized electroencephalogram was performed in the [facility] Med/Surg Floor or ICU. The 10/20 international system of electrode placement was used and bipolar and referential electrode montages were recorded. In addition to EEG the patient was monitored for EKG and lateral/vertical eye movements. Activation procedures of photic stimulation and hyperventilation were performed if applicable. Video was used during activation procedures and during events where applicable. The duration of the recording was 30 minutes. DESCRIPTION OF EEG: The patient was noted to be awake, drowsy, and asleep during the recording. During maximal wakefulness an 11-Hz posterior background rhythm was present which was well-modulated, symmetrical, reactive to eye opening, and of moderate voltage. With eye opening the background activity changed to a low voltage mixture of alpha, beta, and occasional theta range frequencies. Faster frequencies were present in the bilateral anterior head regions. There was a normal anterior-posterior voltage gradient. During drowsiness, there was attenuation of the posterior dominant background rhythm and vertex waves. Stage II sleep was present with symmetrical sleep spindles, K-complexes, and vertex waves. There was excessive diffuse beta activity, likely secondary to medication effects. There was mild, polymorphic, generalized slowing during wakefulness. Activating Procedures: Photic stimulation was performed which produced a symmetrical posterior driving response at various flash frequencies. Hyperventilation was not performed. EKG: EKG revealed normal sinus rhythm. INTERPRETATION: This EEG is abnormal due to mild generalized slowing. PRIOR EEG: none CLINICAL CORRELATION: The background slowing is suggestive of a mild diffuse cerebral encephalopathy of broad differential including toxic-metabolic etiology. No focal regions of cerebral dysfunction or epileptiform activity was present. Clinical correlation is advised. Alyssa Fernandes MD
--- NOTE | 2020-10-18 12:04 | PHA.REVIEW ---
Pharmacy Admission Review - Admission Clinical Review (Last Reviewed 10/17/20 @ 22:00 by ZEYAD Haile) AMS (altered mental status) (Acute) Acute hyponatremia (Acute) Withdrawal syndrome (Acute) Encephalopathy acute (Acute) Hyponatremia (Acute) pravastatin Adverse Reaction (Intermediate, Verified 10/17/20 15:20) Nausea ibuprofen Adverse Reaction (Mild, Verified 10/17/20 15:20) Contraindicated Height 5 ft 3 in Weight 63.8 kg - Renal Dosing Renal Dosing: BUN 10 mg/dL (7-18) 10/18/20 06:30 Creatinine 0.97 mg/dL (0.70-1.30) 10/18/20 06:30 Medications needing adjustments: Reviewed (Crcl ~52 mL/min current meds okay) - Anticoagulation Anticoagulation: Hgb 13.9 g/dL (13.5-17.5) 10/17/20 15:20 Hct 37.9 % (40.0-50.0) L 10/17/20 15:20 Plt Count 413 10^3/uL (130-400) H 10/17/20 15:20 Creatinine 0.97 mg/dL (0.70-1.30) 10/18/20 06:30 DVT Prohphylaxis: Reviewed Medications: Enoxaparin Therapeutic Anticoagulation: N/A - Opiate Usage Evaluate Pain Scale/Pains Meds: N/A - Relevant Labs Sodium 131 mmol/L (136-145) L 10/18/20 06:30 Potassium 3.3 mmol/L (3.5-5.1) L 10/18/20 06:30 Chloride 97 mmol/L (98-107) L 10/18/20 06:30 Magnesium 1.9 mg/dL (1.8-2.4) 10/17/20 15:20 Electrolytes, C-Reactive P, ESR: Reviewed (potassium replacement ordered) - DM Control DM Control: Glucose 102 mg/dL (74-106) 10/18/20 06:30 Insulin Dosing: N/A - Heart Failure/IL Heart Failure/IL: Troponin I < 0.05 ng/mL (<0.06) 10/17/20 15:20 EF%, MINDA's, B-Blockers, Diuretics: Reviewed - BP Control BP Control: Blood Pressure [Left Arm] 172/83 Blood Pressure 162/77 Blood Pressure 184/88 Blood Pressure 172/83 Blood Pressure 153/70 Blood Pressure 154/67 \ If elevated: Reviewed (has been elevated most of this admission, has lisinopril and doxazosin ordered) - Qtc Review If Elevated: N/A (QTc 433 on admission) - IV to PO Switch IV Medications: Reviewed - Home Meds Home Med List reviewed: Reviewed (phenobarbital may induce the metabolism doxazosin, lovastatin, ondansetron, and trazodone. Consider alternatives to avoid therapeutic failure.) Relevent Home Meds Not ordered & why?: ondansetron (PRN), trazodone (PRN) - Current meds Current Medication Order Review: Intervened (Discontinued duplicate med order) - Comments Comments/Follow Ups: Watch BP, electrolytes and for med changes.
[2020-10-18] MEDS: Lidocaine 2% Jelly 6 ML SYR (15:19)
[2020-10-18] MEDS: Enoxaparin 40 MG/0.4 ML SYR SC (20:09)
[2020-10-18] MEDS: Normal Saline Flush 10 ML SYR IVP (20:10)
[2020-10-18] MEDS: Lovastatin 40 MG TAB PO (20:10)
[2020-10-18] MEDS: Docusate Sodium 100 MG CAP PO (21:42)
[2020-10-18 22:05] LABS: Osmolality Serum 273 mOsm/kg (275-295)
[2020-10-19] VITALS (12 sets, daily range): BP systolic 105–153; BP diastolic 52–70; PULSE 57–90; RESP 14–25; TEMP 30–37.4; O2SAT 95–99
[2020-10-19] MEDS: Melatonin 3 MG TAB 9 MG PO (00:07)
--- NOTE | 2020-10-19 00:29 | NUR.NOTE ---
Nursing Note: Patient awoke from sleep at 00:00 and appeared agitated in bed. Upon entering patient room patient states, you're trying awfully hard to keep me in this room aren't you?. Patient also expressing suspicion over previous medication administration and the restriction of fluids. Reinforced previous teaching about medications and fluid restriction. Patient now resting quietly in bed with eyes closed. Will continue to monitor and standard nursing care.
[2020-10-19 06:52] LABS: Anion Gap 6.2 mmol/L (3-11); BUN 16 mg/dL (7-18); CO2 26.8 mmol/L (21.0-32.0); CREATININE 0.95 mg/dL (0.70-1.30); Calcium 8.3 mg/dL (8.5-10.1); Chloride 99 mmol/L (98-107); Glucose 131 mg/dL (74-106); Sodium 132 mmol/L (136-145)
[2020-10-19] MEDS: PHENobarbital 64.8 MG TAB PO ×2 (07:55→19:00)
[2020-10-19] MEDS: Lisinopril 20 MG TAB PO ×2 (07:55→19:00)
[2020-10-19] MEDS: Doxazosin 2 MG TAB 8 MG PO (07:55)
[2020-10-19] MEDS: Potassium Chloride 20 MEQ TABCR PO (07:55)
[2020-10-19] MEDS: Finasteride 5 MG TAB PO (07:55)
[2020-10-19] MEDS: Omeprazole 20 MG CAPCR 40 MG PO (07:55)
[2020-10-19] MEDS: Aspirin E.C. 81 MG TABEC PO (07:56)
[2020-10-19] MEDS: diazePAM 10 MG/2 ML SYR 5 MG IVP ×2 (09:00→11:35)
--- NOTE | 2020-10-19 09:13 | PGE_ITS ---
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 Sodium is better today at 132. He is complaining of his fluid restrictions and he is unlikely to stick to this at home. I will dc his fluid restrictions and see how his sodium levels do. He is on a regular diet now and eating well (2) Encephalopathy acute: Status: Acute Assessment and plan: Probably some underlying dementia w/ superimposed acute barbituate withdrawal. He continues to improve in his cognitive status and now is able to have conversations that make sense. EEG was negative for epileptogenic activity. He can be transferred to the medical/surgical floor. He is to have an MRI of the brain today to complete his acute encephalopathy workup but he has no focal signs of stroke. (3) Acute urinary retention: Status: Acute Assessment and plan: patient has elder catheter in and has been pulling on it causing some hematuria. He is already on doxazocin and finasteride. I will ask urology to see him. We will give him a voiding trial today. (4) Discharge planning issues: Status: Acute Assessment and plan: I do not feel he is quite ready for discharge yet but when he is discharged, he will need support services to make sure he is compliant w/ his meds and that he is capable of not only caring for himself but also his demented . Subjective Subjective Interval history since last seen: Patient is much more conversant this morning. He is upset that he is fluids have been restricted to 1 L to try to correct his hyponatremia. Apparently he has been calling his who has dementia and has gotten her upset. I suspect that this patient probably has some baseline dementia himself but in terms of his encephalopathy he is much more coherent and making more sense this morning. He has been uncooperative with the nurses about taking his medications and has been tugging on his Elder causing some hematuria. Elder catheter had to be placed because of acute urinary retention. This was placed after a couple of straight catheterizations for high postvoid residuals. He is already on doxazosin and finasteride for his BPH. He did not take his phenobarbital this morning but I asked nursing to try to get him to take his phenobarbital as his acute delirium was secondary to withdrawal. He is scheduled to get an MRI scan of the brain this morning and was given IV Valium in preparation for the MRI. I will consult with urology regarding his urinary retention. He is hemodynamically stable and since his mental status has improved since he was loaded with phenobarbital I think he can be transferred to the medical/surgical floor. I would like physical therapy to work with him and it would be preferable to be able to get rid of the Elder catheter prior to discharge as I do not think he will be compliant with leaving the catheter in. Exam Narrative Exam Narrative: He is alert and he is oriented to person and place he knows he is in [facility]. Sitting up eating breakfast; no distress Lungs: clear Heart: RRR Abd: soft, nontender, non-distended Objective Last Vital Signs Temp 36.4 C L 10/19/20 08:08 Pulse 57 L 10/19/20 07:01 Resp 14 10/19/20 07:01 BP 122/58 L 10/19/20 07:01 Pulse Ox 99 10/19/20 07:01 Laboratory Results - last 24 hr 10/17/20 10/19/20 15:20 06:03 Sodium 132 L Potassium 4.0 D Chloride 99 Carbon Dioxide 26.8 Anion Gap 6.2 BUN 16 D Creatinine 0.95 Estimated GFR/1.73 m2 >= 60.00 Glucose 131 H Serum Osmolality 273 L Calcium 8.3 L
--- NOTE | 2020-10-19 09:34 | PDOC.CMPRO ---
- If Service Date Differs Date of service: 10/19/20 Time of Service: 09:34 Care Management Progress Note S/O: Iker was sitting up in bed when CM met with him. He stated that he is feeling much better and doesn't know what happened to him. He held out his arms and hands and said look, Im not shaking at all! This is the first time in quite a while that I've been able to do that without shaking. When asked about his at home, Iker insisted that they are doing fine. He did say she isn't quite right, anyone can see that but maintains that she has never been diagnosed with dementia. Iker shared that his daughter Teja was discharged from rehab yesterday or today and that she will now be living with them and helping out with Mom. 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 He also volunteered that his step son Lb is very helpful. He lives close by and Iker revealed that he intends to turn things over to him to manage. He stated that Lb is 66 or 67 and found it amusing that his step son is so close to his age but informed CM that his is a lot older than he is. This morning several calls were received from the architectural practice manager at [facility] regarding Jazmín, Iker's . She stated the family had called her and wanted someone to get emergency guardianship for Lb to be able to get her placed somewhere. CM explained that the process does not work emergently that way. While Jazmín may be declining, she appears to be safe. She has someone staying with her at night - Julita Ruff who is a tenant, and her grand-daughter was with her during the day today. It is anticipated that Iker will be discharged within the next day or two.The architectural practice manager said she would make some community referrals and CM will request home health services for Iker, including nursing and [facility]. Jazmín's PCP may also want to consider HH for her if the need is identified. CM did discuss SB2 with the architectural practice manager but explained that the ED CM spoke to the son and [id number] on admission and they were clear that they were unable/unwilling to pay out of pocket for care. A: Iker is a 75 year old man admitted to [facility] on 10/17/20 with AMS P:Iker appears to be making significant improvement in his mentation. CM was able to carry on a substantial conversation with him and he appeared lucid and alert and oriented X3. Anticipate once he has cleared mentally, he will be permitted to return home with close follow up with his community based providers and increased home support referrals. CM will continue to support Iker and his family and assess for ongoing discharge needs.
--- NOTE | 2020-10-19 10:56 | NT_ITS ---
Date of service: 10/20/20 Time of Service: 11:20 PT Notes Visit Reasons: AMS 2 attempts were made today for a PT evaluation but patient was not available in the first visit and could not participate in assessment for the second one. Initially Nurse Roslyn, stated that patient was headed down for an MRI and needed to get ready for said testing. An hour after during the second attempt, patient was just heading out for the MRI testing. Hoping to assess transfer level from bed to wheelchair, this PT lingered and offered to help. However, patient had a hard time being roused as he was given Valium to prep him for the MRI. Patient will be put on the weekend PT on-call list for tomorrow for PT evaluation, as ordered. Thank you for the opportunity to participate in the care of this patient. Millie Johnson PT, DPT, CLT [facility] [place], [place]
--- NOTE | 2020-10-19 11:35 | CMPROGNOTE_ITS ---
Care Management Progress Note CM spoke with Dr. Soto who connected with Eyal at [facility]. Eyal advised that Haritha Cortez felt that Iker being forthcoming with his medication addiction was a substantial step, and that his daughter was currently in [facility] rehab as well. At this time, [facility] is recommending not adding additional MD to services (Palliative), but will communicate with Palliative before a consult is completed. Concerns central to Jazmín (Iker's ) being home centered around financial concerns as she tends to order items online. Reportedly, she does have evening caregiver but is currently home alone during the day as Iker is admitted. Appeared Iker will remain at [facility] through the night at this time, CM continues to follow and will support discharge planning considerations.
[2020-10-19] MEDS: Normal Saline Flush 10 ML SYR IVP ×3 (11:37→18:53)
--- NOTE | 2020-10-19 12:35 | DI.MRI_ITS ---
EXAM: MR BRAIN WO CLINICAL HISTORY: encephalopathy TECHNIQUE: Multiplanar multisequence MRI of the brain was performed. COMPARISON: No exams were available for comparison FINDINGS: There is moderate generalized cerebral atrophy. There are multiple areas of abnormal signal in periv entricular white matter predominantly sparing the corpus callosum, consistent with microvascular isch emic changes. No other significant signal abnormality identified in the brain. The orbital and temporal bone structures appear intact as does the pituitary. Diffusion weighted imaging shows no evidence of infarction. Susceptibility weighted imaging shows no evidence of intracranial hemorrhage. There is normal flow void in the [place] vasculature. IMPRESSION: Typical age related changes as described above, otherwise unremarkable brain MRI. DATA REPOSITORY:
[2020-10-19] MEDS: traZODone 50 MG TAB PO (18:52)
[2020-10-19] MEDS: Enoxaparin 40 MG/0.4 ML SYR SC (19:00)
[2020-10-19] MEDS: Lovastatin 40 MG TAB PO (19:00)
[2020-10-19 20:40] LABS: Osmolality, Urine 370 mOsm/kg (150-1,150)
[2020-10-20 03:18] VITALS: BP 132/67; PULSE 85; RESP 18; TEMP 37.2; O2SAT 95
[2020-10-20 07:05] LABS: Platelet Count 308 10^3/uL (130-400)
[2020-10-20 07:36] VITALS: BP 159/68; PULSE 79; RESP 19; TEMP 37.2; O2SAT 97
[2020-10-20] MEDS: Potassium Chloride 10 MEQ CAPCR 20 MEQ PO (07:42)
[2020-10-20] MEDS: Aspirin E.C. 81 MG TABEC PO (07:42)
[2020-10-20] MEDS: PHENobarbital 64.8 MG TAB PO ×2 (07:42→20:29)
[2020-10-20] MEDS: Finasteride 5 MG TAB PO (07:42)
[2020-10-20] MEDS: Doxazosin 2 MG TAB 8 MG PO (07:42)
[2020-10-20] MEDS: Lisinopril 20 MG TAB PO ×2 (07:43→20:29)
[2020-10-20] MEDS: Omeprazole 20 MG CAPCR 40 MG PO (07:43)
[2020-10-20] MEDS: Acetaminophen 325 MG TAB PO (09:27)
--- NOTE | 2020-10-20 10:43 | PT.INIE ---
Date of service: 10/20/20 Time of Service: 10:10 PT Notes Visit Reasons: [facility] Inpatient Physical Therapy Evaluation Date: 09/01/20 Referring Doctor: Dr. Sebastian PT Orders: PT CONSULT: limited ability to ambulate Precautions: fall, standard Patient Profile/Admitting Diagnosis: Patient admitted from ER with acute mental status change. Diagnosed with hyponatremia and acute encephalopathy and admitted for medical management. PMHX: Benign neoplasm of colon Hyperplastic 2010, repeat 2020 Benign prostatic hyperplasia (04/13/13) elevated PSA; S/P BX 2002 Erectile dysfunction Gastroesophageal reflux disease Generalized osteoarthrosis Hammer toe of right foot Hard of hearing Hearing aids Headache chronic fioricet use Hiatal hernia Hyperlipidemia Hypertensive disorder Injury of head (10/23/1951) coma x 7 days Nasal polyp polypectomy x 2 Prostatitis (01/03/13) Smoker pipe Spinal stenosis C-spine Stress at home Trigger finger, right repaired by Dr Palacios Social History/Home Situation: Patient lives independently with his , for whom he provides some level of care due to dementia. 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 He has never used an assistive device, and denies any previous mobility issues. Equipment Owned/DME: none Subjective: Patient states that he is feeling off. States that his balance does not feel normal, and he feels confused. Objective: General Observation: Resting in chair at initiation of session. No lines. Mental Status: A&Ox3, however, patient perseverates on concerns about his medications, his urinary output, and his fluid restriction throughout session. Pain: chronic left ankle pain ROM: Right Upper Extremity: WFL Left Upper Extremity: WFL Right Lower Extremity: WFL Left Lower Extremity: WFL Strength: Right Upper Extremity: Shoulder flexion 4/5. Biceps 5/5. Triceps 4/5. Left Upper Extremity: Shoulder flexion 4/5. Biceps 5/5. Triceps 4/5. Right Lower Extremity: Hip flexion 5/5. Quads 5/5. Ankle DF 5/5 Left Lower Extremity:Hip flexion 5/5. Quads 5/5. Ankle DF 5/5 Bed Mobility/Transfers: sit-stand: supervision stand-sit: supervision Gait: Patient ambulates 150' with FWW and CGA. He is able to ambulate short distances in his room without AD, ambulating 25' with CGA only. With unsupported ambulation, he demonstrates shuffling gait pattern and minor path deviation. Balance: Static Sitting: Normal Dynamic Sitting: good Static Standing: good Dynamic Standing: fair Special Tests: Mobility Limitations Standardized Measure [facility] AM-PAC 6 clicks Basic Mobility Inpatient Short Form: Raw Score: 21 CMS Score: 29% deficit Informed Consent/Education: Patient instructed in purpose of PT consult and plan of care. Treatment: Today's session consisted of evaluation, followed by instruction in standing balance activities, all performed with CGA. Patient was able to tolerate dynamic UE movements in small SELVIN standing, as well as standing march without UE support. Assessment: Patient is a 75 year old male referred to physical therapy services with the diagnosis of acute encephalopathy and hyponatremia. Patient presents with clinical signs and symptoms consistent with mobility deficits related to acute medical issues. He requires skilled PT intervention to address his balance deficits. He currently demonstrates the following impairment level findings: 1. Decreased dynamic balance 2. gait impairments 3. decreased UE strength Impairments are contributing to the following functional limitations: 1. increasd fall risk due to dynamic standing balance impairments 2. reliance on external support for ambulation Patient is assessed as Moderate [id number] complexity based on the following: History: 75 year old male presenting with balance impairments during admission for management of acute medical issues. Patient has multiple underlying medical comorbidities as listed above, and also provides care for his , who suffers from dementia. Examination: functional limitations as noted above Presentation: evolving Decision Making: moderate complexity Goals: Goals X1 week 1. Supine-Sit : independent 2. Sit-Supine : independent 3. Sit-Stand : supervision 4. Stand-Sit : supervision 5. Bed-Chair : supervision 6. Chair-Bed : supervision 7. Gait : supervision with least restrictive device 8: Balance: patient able to demonstrate good dynamic standing balance Plan of Care/Treatment Plan: 1-2x/day, 7 days/week x 1 week. Plan of care has been reviewed with the [facility]ER providing the service under Physical Therapy direction. Initiate Physical Therapy intervention for strengthening, bed mobility, transfers, gait, stairs, balance training, use of assistive device. DISCHARGE RECOMMENDATIONS: home with Home Health PT TREATMENT CODE/TIME: 10:10 - 10:40 ([id number]) Dalia Juarez, PT, DPT [facility]
--- NOTE | 2020-10-20 13:41 | W.PM.DS.N ---
Date of service: 10/20/20 Time of Service: 13:41 DS: Diagnosis Discharge Diagnosis (1) Hyponatremia: Status: Acute (2) Encephalopathy acute: Status: Acute (3) Acute urinary retention: Status: Acute (4) Discharge planning issues: Status: Acute Discharge Plan Disposition Condition: Poor Discharge Details Reason For Visit: AMS Admit Date/Time: 10/17/20 17:39 Admit Provider: Misha Sebastian Attending Provider: Misha Sebastian Primary Care Provider: Haritha Cortez Home Meds and New Rx's Prescriptions: No Action ondansetron HCl [Zofran] 4 mg tablet 4 mg PO Q8H PRN (Reason: nausea and vomiting) Qty: 40 RF: 0 trazodone 50 mg tablet 50 mg PO QHS PRN (Reason: sleep) Qty: 60 RF: 1 lisinopril 20 mg tablet 20 mg PO BID Qty: 180 RF: 3 finasteride 5 mg tablet 5 mg PO DAILY Qty: 90 RF: 3 phenobarbital 60 mg tablet 60 mg PO DAILY MDD 60mg (1 tab) Qty: 14 RF: 0 lovastatin 40 mg tablet 40 mg PO QPM RF: 0 omeprazole 40 mg capsule,delayed release(DR/EC) 40 mg PO DAILY RF: 0 doxazosin 8 mg tablet 8 mg PO DAILY Qty: 30 RF: 6 DS: Data Vitals/I&O Vitals and I&O: Vital Signs Temperature 37.2 C 10/20/20 07:36 Temperature Source Temporal Artery Scan 10/20/20 07:36 Pulse 79 10/20/20 07:36 Pulse Rhythm Regular 10/20/20 09:56 Pulse 60 10/19/20 07:01 Respiratory Rate 19 10/20/20 07:36 Respiratory Effort 10/20/20 09:56 Respiratory Depth Normal 10/20/20 09:56 Respiratory Pattern Normal 10/20/20 09:56 Blood Pressure 159/68 H 10/20/20 07:36 Blood Pressure Mean 72 10/19/20 07:01 Blood Pressure Position Sitting 10/19/20 08:08 Pulse Oximetry 97 10/20/20 07:36 Oxygen Delivery Method Room Air 10/20/20 07:36 Oxygen Flow Rate 0 10/20/20 07:36 Pain Level 2 10/20/20 10:27 Comment 10/19/20 16:33 Intake & Output 10/19/20 10/20/20 10/20/20 23:59 11:59 23:59 Intake Total 240 / 640 550 / 1280 730 / 1280 Output Total 675 / 1475 400 / 400 Balance -435 / -835 150 / 880 730 / 880 Weight 65.5 kg Intake: Oral 240 / 640 550 / 1280 730 / 1280 Output: Urine 675 / 1475 400 / 400 Other: Urine Color Light Whitney Yellow Urine Appearance Cloudy Clear Urine Odor None Normal Comment void x1 toilet Stool Size Moderate Moderate Stool Characteristics Formed Soft Hard Brown Brown Voiding Methods Indwelling Catheter Toilet Data Completed and Pending Labs on day of discharge: Labs from last 24 hours 10/20/20 10/18/20 06:28 17:50 Plt Count 308 D Urine Osmolality 370 Preliminary micro results at discharge 10/17/20 17:10 Blood Culture - Preliminary Blood NO GROWTH 48 HOURS 10/17/20 16:30 Blood Culture - Preliminary Blood NO GROWTH 48 HOURS [facility] Medical History (Updated 10/19/20 @ 10:16 by Misha Sebastian) Benign neoplasm of colon Hyperplastic 2010, repeat 2020 Benign prostatic hyperplasia (04/13/13) elevated PSA; S/P BX 2002 Erectile dysfunction Gastroesophageal reflux disease Generalized osteoarthrosis Hammer toe of right foot Hard of hearing Hearing aids Headache chronic fioricet use Hiatal hernia Hyperlipidemia Hypertensive disorder Injury of head (10/23/1951) coma x 7 days Nasal polyp polypectomy x 2 Prostatitis (01/03/13) Smoker pipe Spinal stenosis C-spine Stress at home Trigger finger, right repaired by Dr Palacios Surgical History Hx of cholecystectomy (~05/2015) S/P rotator cuff repair Family History Sister Colon cancer Rheumatoid arthritis Father Heart disease Social History Smoking/Tobacco Use Status: Former Tobacco Use Tobacco: How many years used: 25 Smoking risk assessment performed?: Yes Alcohol Intake: never Drug use: Never Substance use type: does not use Adopted: No Caregiver/Support person: No Foster care: No Household members: spouse Housing: house Number of Children: 3 Communication Needs: Hard of Hearing Do you need help understanding health information?: Never 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
[2020-10-20 15:42] VITALS: BP 163/72; PULSE 78; RESP 18; TEMP 37.2; O2SAT 98
--- NOTE | 2020-10-20 19:58 | PDOC.CMPRO ---
- If Service Date Differs Date of service: 10/20/20 Time of Service: 19:59 Care Management Progress Note S/O: Iker was lying in bed when CM met with him. He expressed concerns regarding his care while in the ICU, as they would not give him water, and they continued to give him medications although he was unaware of what they were. CM discussed his concerns with his provider, who reported that he was on fluid restrictions, which is why he was limited on his water intake. CM called his step son, Zachary, who reported that he had just been on the phone with Iker, and he shared concerns that he is not at his baseline mentation. CM discussed his care with the provider, who decided to monitor him overnight, but he may be ready for discharge tomorrow. CM will recommend services, which Iker has agreed to. CM will continue to follow. A: Iker is a 75 year old man admitted to [facility] on 10/17/20 with AMS P:Iker appears to be making significant improvement in his mentation. CM was able to carry on a substantial conversation with him and he appeared lucid and alert and oriented X3. Anticipate once he has cleared mentally, he will be permitted to return home with close follow up with his community based providers and increased home support referrals. CM will continue to support Iker and his family and assess for ongoing discharge needs.
--- NOTE | 2020-10-20 20:28 | W.PM.PROGNOT ---
Date of Service Date of service: 10/20/20 Time of Service: 20:33 Assessment and Plan Assessment and plan (1) Acute hyponatremia: Status: Acute Assessment and plan: Na improved to 132. Not the etiology for his confusion/encephalopathy (2) Encephalopathy acute: Status: Acute Assessment and plan: Likely secondary to barbituate withdrawal with likely underlying undiagnosed dementia. His son endorses that the patient is more confused than his baseline. Cont to monitor (3) Withdrawal syndrome: Status: Acute Assessment and plan: Chronic Fiorecet use; now off and lkely causing altered mental status. (4) Hypertensive disorder: Status: Acute Assessment and plan: SBP in the 130-160's range today. On lisinopril. Monitor Will need outpt monitoring and possibly an addition of an additional agent Qualifiers: Hypertension type: essential hypertension Qualified Code(s): I10 - Essential (primary) hypertension Subjective Subjective Patient reports: tolerating a regular diet and afebrile; denies nausea and vomiting Interval history since last seen: Confused. Was asleep in chair. Describes weakness of legs. No CP, JOHNSON. Exam Const General: cooperative and no acute distress Nutritional Appearance: average body habitus Orientation: confused Resp Effort & Inspection: normal respiratory effort Auscultation: clear to auscultation bilaterally Cardio Rate: regular rate Rhythm: regular rhythm Heart Sounds: S1 normal and S2 normal Neuro General: patient alert and moves all extremities Cognition: abnormal cognition Speech: speech normal Objective Last Vital Signs Temp 37.2 C 10/20/20 15:42 Pulse 78 10/20/20 15:42 Resp 18 10/20/20 15:42 BP 163/72 H 10/20/20 15:42 Pulse Ox 98 10/20/20 15:42 Laboratory Results - last 24 hr 10/18/20 10/20/20 17:50 06:28 Plt Count 308 D Urine Osmolality 370
[2020-10-20] MEDS: Lovastatin 40 MG TAB PO (20:29)
[2020-10-20] MEDS: Melatonin 3 MG TAB 9 MG PO (20:29)
[2020-10-20] MEDS: traZODone 50 MG TAB PO (20:29)
[2020-10-20] MEDS: Enoxaparin 40 MG/0.4 ML SYR SC (20:29)
[2020-10-21] MEDS: Acetaminophen 325 MG TAB PO (02:28)
[2020-10-21 03:48] VITALS: BP 102/61; PULSE 67; RESP 18; TEMP 37.1; O2SAT 97
[2020-10-21] MEDS: Omeprazole 20 MG CAPCR 40 MG PO (07:01)
[2020-10-21 07:15] LABS: Anion Gap 6.2 mmol/L (3-11); BUN 11 mg/dL (7-18); CO2 28.8 mmol/L (21.0-32.0); Calcium 8.4 mg/dL (8.5-10.1); Chloride 97 mmol/L (98-107); Glucose 112 mg/dL (74-106); Potassium 4.1 mmol/L (3.5-5.1); Sodium 132 mmol/L (136-145)
[2020-10-21 07:30] VITALS: BP 136/74; PULSE 74; RESP 16; TEMP 36.6; O2SAT 98
[2020-10-21] MEDS: Lisinopril 20 MG TAB PO (07:43)
[2020-10-21] MEDS: Potassium Chloride 10 MEQ CAPCR 20 MEQ PO (07:43)
[2020-10-21] MEDS: Doxazosin 2 MG TAB 8 MG PO (07:43)
[2020-10-21] MEDS: Aspirin E.C. 81 MG TABEC PO (07:43)
[2020-10-21] MEDS: Finasteride 5 MG TAB PO (07:43)
[2020-10-21] MEDS: PHENobarbital 64.8 MG TAB PO (07:43)
--- NOTE | 2020-10-21 09:56 | PTTR_ITS ---
Date of service: 10/21/20 Time of Service: 09:25 PT Notes Visit Reasons: [facility] Inpatient Physical Therapy Treatment Note [facility] Date: 10/21/20 PRECAUTIONS:fall, standard SUBJECTIVE: Alli states that he is feeling stiff, as he does every morning. He is anxious to get up and do some walking. OBJECTIVE: PAIN: stiffness in bilat knees BED MOBILITY/TRANSFERS Supine-sit: independent, HOB flat Sit-stand: supervision Stand-sit: supervision Bed-Chair: supervision, without AD Chair-bed: supervision, without AD GAIT Patient ambulates 120' x 2, initially with FWW and supervision only. For second session, he walks without AD, with CGA. When ambulating without AD, he demonstrates stiff gait patterns, with decreased trunk rotation and arm swing. He is able to navigate around obstacles today with improved safety awareness versus his PT session yesterday. THEREX: Patient was instructed in LE strengthening and balance retr aining activities as follows: seated: hip flexion x 10 LAQ x 10 ankle pumps x 10 hip AB x 10 standing: hip flexion x 10 hip AB x 10 heel raises x 10 sit-stand x 10 shoulder flexion with small SELVIN standing x 10 trunk rotation with small SELVNI standing x 10 ASSESSMENT: Improved balance and mobility versus yesterday's session. Patient was able to safely progress to ambulation without assistive device. PLAN: Continue PT intervention as patient improves medically. TREATMENT CODE/TIME: 9:25 - 9:55 ([id number], [id number]) Dalia Juarez, PT, DPT [facility]
--- NOTE | 2020-10-21 10:48 | DSE_ITS ---
Date of service: 10/21/20 Time of Service: 10:49 DS: Diagnosis Discharge Diagnosis (1) Acute hyponatremia: Status: Acute (2) Encephalopathy acute: Status: Acute (3) Withdrawal syndrome: Status: Acute (4) Hypertensive disorder: Status: Acute Discharge Plan Disposition Patient Disposition: HOME W/HOME HEALTH SERVICE Condition: Improving Discharge Details Reason For Visit: AMS Admit Date/Time: 10/17/20 17:39 Admit Provider: Misha Sebastian Attending Provider: Misha Sebastian Primary Care Provider: Haritha Cortez Hospital Course Hospital Course: 75-year-old gentleman with a history of chronic Fioricet use who was transitioned over to phenobarbital to try to wean him off of his chronic Fioricet use. Patient has a past medical history significant for spinal stenosis as well as essential hypertension and a remote closed head injury as a child in which she was in a coma for a week at the age of 66 years old. His primary care provider Haritha Cortez was working with neurologist Dr. Alyssa Fernandes to try to wean him off of Fioricet and he was put on a phenobarbital taper. He was rapidly tapered off of phenobarbital when he was followed up by his PCP and noted to have altered mental status which was attributed to rapid wean off of phenobarbital. He has no known history of seizure disorder. Patient reportedly had taken Fioricet for many years for headaches. When he was tapered off the phenobarbital he began having visual and auditory hallucinations for the past week and was put back on the phenobarbital. His stepson reported that the patient tried to strangle his dog. He was brought in to the emergency department at [facility] for further evaluation. Work-up included noncontrast CT scan of his head which showed no evidence for acute transcortical infarct no intracranial hemorrhage or mass-effect. ER personnel evaluated the patient and could not find a focal neurologic signs of a CVA. He had no loss of bowel or bladder control and had no visible tonic-clonic activity. He was noted by nursing staff to have some myoclonic movement. ZEYAD Haile from the emergency department spoke with Dr. Alyssa Fernandes, who expressed some concerns for possible subclinical seizure and that he may be in a postictal state. She recommend getting an EEG. EEG was negative for any epilepiform finding. He was given a loading dose of phenobarbital since his level is subtherapeutic. Labs, including a CBC, CMP, urine tox screen, phenobarbital level were obtained. His CBC was unremarkable.His CMP is remarkable for mild hyponatremia with serum sodium of 130 with a repeat level of 129 after a normal saline fluid bolus. BUN and creatinine and LFTs were normal. His ammonia level was less than 10. TSH was normal at 0.69. Urine toxicology screen was positive for barbiturates but negative for all other drugs of abuse other than an ethanol level of 4.2 and a phenobarbital level of 3.2. He was given a loading dose of phenobarbital 10 mg/kg IV bolus over 30 minutes which was expected to achieve at least a therapeutic level of 15 mcg/mL. Given that he already has a phenobarbital level of 3.2 this should get an adequate level to prevent seizures and would also treat his acute barbiturate withdrawal. His free water was initially restricted to 1L daily. He was allowed Gatoraid as well. His Na improved to 133 and the fluid restriction was stopped. His confused improved. He did complain of generalized leg weakness and PT was consulted. Home Health PT and MANAGER OF PHOTOGRAPHY will follow him for further assistance/intervention. A slow taper off the phenobarbital will be initiated as an outpt. F/U with PCP in 1 week. Home Meds and New Rx's Prescriptions: New phenobarbital 64.8 mg Tablet 64.8 mg PO BID Qty: 60 RF: 0 Continued ondansetron HCl [Zofran] 4 mg tablet 4 mg PO Q8H PRN (Reason: nausea and vomiting) Qty: 40 RF: 0 trazodone 50 mg tablet 50 mg PO QHS PRN (Reason: sleep) Qty: 60 RF: 1 lisinopril 20 mg tablet 20 mg PO BID Qty: 180 RF: 3 finasteride 5 mg tablet 5 mg PO DAILY Qty: 90 RF: 3 lovastatin 40 mg tablet 40 mg PO QPM RF: 0 omeprazole 40 mg capsule,delayed release(DR/EC) 40 mg PO DAILY RF: 0 doxazosin 8 mg tablet 8 mg PO DAILY Qty: 30 RF: 6 Discontinued phenobarbital 60 mg tablet 60 mg PO DAILY MDD 60mg (1 tab) Qty: 14 RF: 0 Discharge Instructions Instructions: Urinary Retention in Men (ED), Altered Mental Status (GEN) Stand Alone Forms: Nursing Discharge Form Referrals: Haritha Cortez MOBILITY MANAGER [Primary Care Provider] - (Please call Thursday to make a follow up appointment for 1 week) Activity:: Activity as Tolerated Equipment/Supplies:: No Equipment Needed Diet:: Normal Diet Discharge Orders Discharge Orders: Discharge Order (Routine); Ordered 10/21/20 Ordered By: Neville Love Discharge Data Discharge Date/Time-TO BE ENTERED AT DEPARTURE: 10/21/20 13:59 DS: Summary Status at Discharge Functional status at discharge: independent ambulation Overall status at discharge: patient is progressing back to baseline Mental Status: other (Does perseverate on issues at times) Speech and Movement: speech and movement normal Mood: anxious mood Affect: anxious affect Exam Psych Speech and Movement: speech and movement normal Mood: anxious mood Affect: anxious affect DS: Data Vitals/I&O Vitals and I&O: Vital Signs Temperature 36.6 C 10/21/20 07:30 Temperature Source Tympanic 10/21/20 07:30 Pulse 74 10/21/20 07:30 Pulse Rhythm Regular 10/21/20 08:13 Pulse 60 10/19/20 07:01 Respiratory Rate 16 10/21/20 07:30 Respiratory Effort Non-Labored 10/21/20 08:13 Respiratory Depth Normal 10/21/20 08:13 Respiratory Pattern Normal 10/21/20 08:13 Blood Pressure 136/74 10/21/20 07:30 Blood Pressure Mean 72 10/19/20 07:01 Blood Pressure Position Sitting 10/19/20 08:08 Pulse Oximetry 98 10/21/20 07:30 Oxygen Delivery Method Room Air 10/21/20 07:30 Oxygen Flow Rate 0 10/21/20 07:30 Pain Level 0 10/21/20 07:30 Comment 10/19/20 16:33 Intake & Output 10/20/20 10/20/20 10/21/20 11:59 23:59 11:59 Intake Total 550 / 1480 930 / 1480 250 / 250 Output Total 400 / 400 Balance 150 / 1080 930 / 1080 250 / 250 Weight 65.5 kg 65.4 kg Intake: Oral 550 / 1480 930 / 1480 250 / 250 Output: Urine 400 / 400 Other: Urine Color Yellow Yellow Yellow Urine Appearance Clear Clear Clear Urine Odor Normal Normal Comment void x1 toilet Stool Size Moderate Small Stool Characteristics Soft Formed Brown Voiding Methods Toilet Toilet Toilet Data Completed and Pending Labs on day of discharge: Labs from last 24 hours 10/21/20 06:00 Sodium 132 L Potassium 4.1 Chloride 97 L Carbon Dioxide 28.8 Anion Gap 6.2 BUN 11 Creatinine 0.90 Estimated GFR/1.73 m2 >= 60.00 Glucose 112 H Calcium 8.4 L Preliminary micro results at discharge 10/17/20 17:10 Blood Culture - Preliminary Blood NO GROWTH 72 HOURS 10/17/20 16:30 Blood Culture - Preliminary Blood NO GROWTH 72 HOURS PFSH Medical History Benign neoplasm of colon Hyperplastic 2010, repeat 2020 Benign prostatic hyperplasia (04/13/13) elevated PSA; S/P BX 2002 Erectile dysfunction Gastroesophageal reflux disease Generalized osteoarthrosis Hammer toe of right foot Hard of hearing Hearing aids Headache chronic fioricet use Hiatal hernia Hyperlipidemia Hypertensive disorder Injury of head (10/23/1951) coma x 7 days Nasal polyp polypectomy x 2 Prostatitis (01/03/13) Smoker pipe Spinal stenosis C-spine Stress at home Trigger finger, right repaired by Dr Palacios Surgical History Hx of cholecystectomy (~05/2015) S/P rotator cuff repair Family History Sister Colon cancer Rheumatoid arthritis Father Heart disease Social History Smoking/Tobacco Use Status: Former Tobacco Use Tobacco: How many years used: 25 Smoking risk assessment performed?: Yes Alcohol Intake: never Drug use: Never Substance use type: does not use Adopted: No Caregiver/Support person: No Foster care: No Household members: spouse Housing: house Number of Children: 3 Communication Needs: Hard of Hearing Do you need help understanding health information?: Never 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
--- NOTE | 2020-10-21 11:47 | PDOC.HHF2F ---
Home Health Certification Home Health Certification: 1. Encounter Date and Reason I certify that EHSAN BUCIO was seen by Neville Love MD on 10/21/20 and that I had a [id number] encounter with this patient that meets the physician face to face encounter requirements. 2. Clinical Findings Supporting Skilled Need and Homebound Status I certify that home health services are medically necessary, include either intermittent mcfp and/or physical/speech therapy, and that this patient is homebound in that absences from the home require considerable and taxing effort and are infrequent or of short duration, or are attributable to the need to receive medical care. [X] (a) Attached documentation from encounter provides clinical findings supporting skilled need and homebound status (including what assistance patient requires to leave the home). The encounter with the patient was in whole, or in part, for the following medical condition, which is the primary reason for home health care: AMS Retirement: Physical Therapy: strengthening and gait stability Speech Therapy: MICROFILM MACHINE OPERATOR: Provide support and services Homebound: 3. Certification and Authentication I certify that I composed the above information based on my clinical judgement relating to this patient's medical condition and, if applicable, clinical findings communicated to me by the NPP or inpatient physician who performed the Home Health Referral. All further orders will be obtained through Haritha Cortez (Community Based Physician - PCP)
--- NOTE | 2020-10-21 13:40 | PDOC.CMDIS ---
- If Service Date Differs Date of service: 10/21/20 Time of Service: 13:40 LACE Index Scoring Tool - Questions: Length of Stay (in days): 4 - 6 Acuity (Admit via E.D.?): Yes E.D. Visits: 1 - Answers: Total Score: 8 Risk of Readmission: Low Risk Care Management Discharge Reason for Hospitalization: AMS Discharge Plan: Iker will return home with new orders for HH PT and [employer]. His son Zachary will drive him home via private vehicle. He will follow up with his PCP and discharge plan of care. Patient/Family Education Needs: Review discharge instructions with Ikre and his son, Zachary, discussion of self care needs and goals of care. Services Needed at Discharge: Home Health Care Services (HH PT, [employer])
== END 2020-10-21 13:59 | disposition home health service (06) | DRG 640 ==
LOC: ER 17:48 → ICU 18:28 → MS 10-19 12:11
PROVIDERS: Family Medicine; Admitting Provider Internal Medicine; Emergency Provider Physician Assistant; PCP Nurse Practitioner Adult Health; Visit Provider Internal Medicine
DX: E87.1 Hypo-osmolality and hyponatremia (principal); G92 Toxic encephalopathy; F13.239 Sedative, hypnotic or anxiolytic dependence with withdrawal, unspecified; K21.9 Gastro-esophageal reflux disease without esophagitis; H91.90 Unspecified hearing loss, unspecified ear; I10 Essential (primary) hypertension; E78.5 Hyperlipidemia, unspecified; K44.9 Diaphragmatic hernia without obstruction or gangrene; R51.9 Headache, unspecified; F17.290 Nicotine dependence, other tobacco product, uncomplicated; M48.02 Spinal stenosis, cervical region; M15.9 Polyosteoarthritis, unspecified; N40.0 Benign prostatic hyperplasia without lower urinary tract symptoms; T42.3X5A Adverse effect of barbiturates, initial encounter; R33.9 Retention of urine, unspecified; F03.90 Unspecified dementia, unspecified severity, without behavioral disturbance, psychotic disturbance, mood disturbance, and anxiety
CPT/HCPCS: 36415; 36416; 80048; 80053; 80307; 82962; 83935; 87040; 93005; 95819; 96374; 97110; 97162; 97530; 99223; 99232; 99233; 99239; 99285; J1650; U0003; 70450; 70551; 80184; 80320; 81003; 81015; 82140; 83605; 83735; 83930; 84443; 84484; 85025; 85049; 87086; 93010; J2560; J3360

== ENCOUNTER → 2020-10-18 10:00 | Outpatient (BNVA) | payer OTHER, SELFPAY | PROVIDERS: PCP Nurse Practitioner Adult Health; Referring Provider Nurse Practitioner Adult Health; Visit Provider Psychiatry & Neurology Neurology | DX: R69 Illness, unspecified (principal) ==

== ENCOUNTER → 2020-10-23 08:57 | Outpatient (BNVA) | payer OTHER, SELFPAY ==
--- NOTE | 2020-10-24 09:16 | INDS_ITS ---
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 No charge was made in the completion of this documentation. Referring Doctor: Dr. Sebastian PT Orders: PT CONSULT: limited ability to ambulate Precautions: fall, standard Patient Profile/Admitting Diagnosis: Patient admitted from ER with acute mental status change. Diagnosed with hyponatremia and acute encephalopathy and admitted for medical management. PMHX: Benign neoplasm of colon Hyperplastic 2010, repeat 2020 Benign prostatic hyperplasia (04/13/13) elevated PSA; S/P BX 2002 Erectile dysfunction Gastroesophageal reflux disease Generalized osteoarthrosis Hammer toe of right foot Hard of hearing Hearing aids Headache chronic fioricet use Hiatal hernia Hyperlipidemia Hypertensive disorder Injury of head (10/23/1951) coma x 7 days Nasal polyp polypectomy x 2 Prostatitis (01/03/13) Smoker pipe Spinal stenosis C-spine Stress at home Trigger finger, right repaired by Dr Palacios Social History/Home Situation: Patient lives independently with his , for whom he provides some level of care due to dementia. 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 He has never used an assistive device, and denies any previous mobility issues. Equipment Owned/DME: none Subjective: NT. See most recent PRODUCTION CREW SUPERVISOR notes. Objective: General Observation: NT. See most recent PRODUCTION CREW SUPERVISOR notes. Mental Status: NT. See most recent PRODUCTION CREW SUPERVISOR notes. Pain: NT. See most recent PRODUCTION CREW SUPERVISOR notes. ROM: Right Upper Extremity: WFL Left Upper Extremity: WFL Right Lower Extremity: WFL Left Lower Extremity: WFL Strength: Right Upper Extremity: Shoulder flexion 4/5. Biceps 5/5. Triceps 4/5. Left Upper Extremity: Shoulder flexion 4/5. Biceps 5/5. Triceps 4/5. Right Lower Extremity: Hip flexion 5/5. Quads 5/5. Ankle DF 5/5 Left Lower Extremity:Hip flexion 5/5. Quads 5/5. Ankle DF 5/5 Bed Mobility/Transfers: sit-stand: supervision stand-sit: supervision Gait: Patient ambulates 150' with FWW and CGA. He is able to ambulate short distances in his room without AD, ambulating 25' with CGA only. With unsupported ambulation, he demonstrates shuffling gait pattern and minor path deviation. Balance: Static Sitting: Normal Dynamic Sitting: good Static Standing: good Dynamic Standing: fair Assessment: Patient is a 75 year old male referred to physical therapy services with the diagnosis of acute encephalopathy and hyponatremia. Patient cntuing to present with clinical signs and symptoms consistent with mobility deficits related to acute medical issues. He requires skilled PT intervention to address his balance deficits. He currently demonstrates the following impairment level findings: 1. Decreased dynamic balance 2. gait impairments 3. decreased UE strength Impairments are continuing to contribute to the following functional limitations: 1. increasd fall risk due to dynamic standing balance impairments 2. reliance on external support for ambulation Goals: Goals X1 week 1. Supine-Sit : independent MET 2. Sit-Supine : independent MET 3. Sit-Stand : supervision MET 4. Stand-Sit : supervision MET 5. Bed-Chair : supervision MET 6. Chair-Bed : supervision MET 7. Gait : supervision with least restrictive device MET 8: Balance: patient able to demonstrate good dynamic standing balance NOT MET DISCHARGE RECOMMENDATIONS: Home with Home Health PT TREATMENT CODE/TIME: NC Thank you for the opportunity to participate in the care of this patient. Millie Johnson PT, DPT, CLT [facility] [place], [place]
== END ==
PROVIDERS: PCP Nurse Practitioner Adult Health; Referring Provider Nurse Practitioner Adult Health; Visit Provider Psychiatry & Neurology Neurology
DX: G93.40 Encephalopathy, unspecified (principal); F13.10 Sedative, hypnotic or anxiolytic abuse, uncomplicated; F41.9 Anxiety disorder, unspecified; G47.00 Insomnia, unspecified; R41.89 Other symptoms and signs involving cognitive functions and awareness; E87.1 Hypo-osmolality and hyponatremia; Z87.820 Personal history of traumatic brain injury
CPT/HCPCS: 99203; 99443

== ENCOUNTER 2020-11-09 16:03 | Outpatient (REF) | payer OTHER, SELFPAY ==
[2020-11-09 17:13] LABS: Anion Gap 11.3 mmol/L (3-11); BUN 15 mg/dL (7-18); CO2 25.7 mmol/L (21.0-32.0); CREATININE 0.85 mg/dL (0.70-1.30); Calcium 8.5 mg/dL (8.5-10.1); Chloride 97 mmol/L (98-107); Glucose 121 mg/dL (74-106); Potassium 4.1 mmol/L (3.5-5.1); Sodium 134 mmol/L (136-145)
== END 2020-11-09 16:23 ==
LOC: LBN 16:03
PROVIDERS: PCP Nurse Practitioner Adult Health; Visit Provider Nurse Practitioner Adult Health
DX: E87.1 Hypo-osmolality and hyponatremia (principal); G93.49 Other encephalopathy
CPT/HCPCS: 80048

== ENCOUNTER → 2020-11-27 07:45 | Outpatient (BNVA) | payer MEDICARE, SELFPAY | PROVIDERS: PCP Nurse Practitioner Adult Health; Referring Provider Nurse Practitioner Adult Health; Visit Provider Psychiatry & Neurology Neurology | DX: G93.40 Encephalopathy, unspecified (principal); F13.10 Sedative, hypnotic or anxiolytic abuse, uncomplicated; F41.9 Anxiety disorder, unspecified; G47.00 Insomnia, unspecified; R41.89 Other symptoms and signs involving cognitive functions and awareness | CPT/HCPCS: 99443 ==

== ENCOUNTER 2021-01-23 15:06 | Outpatient (REF) | payer MEDICARE, SELFPAY ==
[2021-01-23 19:29] LABS: Abs Immature Grans 0.02 10^3/uL (0.0-0.06); Absolute Basophil Count 0.04 10^3/uL (0.0-0.2); Absolute Eosinophil Count 0.01 10^3/uL (0.0-0.7); Absolute Lymphocyte Count 0.95 10^3/uL (1.2-3.4); Absolute Monocyte Count 0.83 10^3/uL (0.1-0.8); Absolute Neutrophil Count 6.26 10^3/uL (1.2-6.7); Basophils % 0.5; Eosinophils % 0.1; HCT 37.4 % (40.0-50.0); HGB 13.5 g/dL (13.5-17.5); Immature Grans % 0.2; Lymphocytes % 11.7; MCH 32.5 pg (27.0-33.0); MCHC 36.1 % (32.0-36.0); MCV 90.1 fL (80-95); MPV 8.7 fL (8.0-11.0); Monocytes % 10.2; Neutrophils % 77.3; Nucleated RBC 0 %; Platelet Count 273 10^3/uL (130-400); RBC 4.15 10^6/uL (4.36-5.78); RDW 11.8 % (11.8-14.1); RDW-SD 39.1 fL; WBC 8.11 10^3/uL (4.4-10.8)
[2021-01-23 19:46] LABS: Bilirubin Negative (Negative); Blood Trace-lysed (Negative); Clarity Clear (Clear); Glucose Negative (Negative); Ketones Negative (Negative); Leukocyte Esterase Trace (Negative); Nitrite Negative (Negative); Specific Gravity 1.025 (1.005-1.025); Urobilinogen 0.2 EU/dL (Up TO 0.2); pH 7.5 (5-8)
[2021-01-23 20:10] LABS: Bacteria Negative HPF (Negative); Epithelial Cells Rare HPF (Negative); RBC 0-2 HPF (0-2); WBC 0-2 HPF (0-5)
[2021-01-23 20:18] LABS: C & S Indicated? Yes; Casts Negative LPF (Negative); Mucus Negative (Negative)
[2021-01-23 20:19] LABS: Crystals Few Calcium Oxalate HPF (Negative)
[2021-01-23 20:50] LABS: ALT 31 U/L (16-63); AST 25 U/L (15-37); Albumin 3.9 g/dL (3.4-5.0); Alkaline Phosphatase 107 U/L (46-116); Anion Gap 5.6 mmol/L (3-11); BUN 16 mg/dL (7-18); Bilirubin, Total 0.3 mg/dL (0.2-1.0); CO2 27.4 mmol/L (21.0-32.0); CREATININE 0.9 mg/dL (0.70-1.30); Calcium 8.8 mg/dL (8.5-10.1); Calculated LDL 58 mg/dL (<100); Chloride 99 mmol/L (98-107); Cholesterol 132 mg/dL (<200); Glucose 110 mg/dL (74-106); HDL Cholesterol 61 mg/dL (40-60); Sodium 132 mmol/L (136-145); Total Protein 6.8 g/dL (6.4-8.2); Triglyceride 67 mg/dL (<150)
[2021-01-24 20:12] LABS: PSA, Screening 4.6 ng/mL (0.0-6.5)
== END 2021-01-23 15:07 | disposition home or self-care (01) ==
LOC: LBO 15:06
PROVIDERS: PCP Nurse Practitioner Adult Health; Visit Provider Nurse Practitioner Adult Health
DX: E78.5 Hyperlipidemia, unspecified (principal); I10 Essential (primary) hypertension; N40.0 Benign prostatic hyperplasia without lower urinary tract symptoms; Z12.5 Encounter for screening for malignant neoplasm of prostate; R35.0 Frequency of micturition; R41.89 Other symptoms and signs involving cognitive functions and awareness
CPT/HCPCS: 80053; 80061; 84153; 81003; 81015; 84443; 85025; 87086

== ENCOUNTER 2021-01-27 11:20 | Observation (INO) | payer MEDICARE, SELFPAY ==
[2021-01-27 11:26] VITALS: BP 138/63; PULSE 66; RESP 18; TEMP 36.8; O2SAT 98
--- NOTE | 2021-01-27 11:42 | W.ED.GENAD ---
Discharge Plan Disposition Patient Disposition: STILL A PATIENT Condition: Serious Discharge Details Chief Complaint: PsychEval Clinical Impression: Suicidal ideations, UTI (urinary tract infection) Primary Care Provider: Haritha Cortez ED Provider: Misha Baxter Home Meds and New Rx's Prescriptions: No Action ondansetron HCl [Zofran] 4 mg tablet 4 mg PO Q8H PRN (Reason: nausea and vomiting) Qty: 40 RF: 0 phenobarbital 64.8 mg tablet 64.8 mg PO BID Qty: 60 RF: 5 lisinopril 20 mg tablet 20 mg PO BID Qty: 180 RF: 3 finasteride 5 mg tablet 5 mg PO DAILY Qty: 90 RF: 3 doxazosin 8 mg tablet 8 mg PO DAILY Qty: 30 RF: 6 lovastatin 40 mg tablet 40 mg PO QPM Qty: 90 RF: 3 omeprazole 40 mg capsule,delayed release(DR/EC) 40 mg PO DAILY Qty: 90 RF: 3 trazodone 50 mg tablet 50 mg PO QHS PRN (Reason: sleep) Qty: 60 RF: 3 Medical Decision Making 75-year-old gentleman with past medical history of cognitive decline, anxiety, hypertension, BPH, GERD, headaches, former smoker, presents for increased stress, difficulty coping, suicidal thoughts with a plan. He has never tried to harm himself in the past and denies doing anything today although he did have a handful of pills yesterday that he could have taken but chose not to. He is stressed given his has dementia and he has a hard time caring for her and her increasing needs. 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 He currently denies any acute medical concerns or complaints. Denies recent illness or trauma. Patient appears well, nontoxic. He is anxious. Will obtain laboratories for a medical screening examination and possible psychiatric placement. Mental health, behavioral plan, and CPSO all initiated. Reviewing records, patient had a brain CT and MRI September and October of last year. Laboratory values are unremarkable for obvious emergent process. Sodium is 131. He is eating lunch without difficulty. Urine trace protein, large leuk esterase with 10-20 white blood cells. Given his leuk esterase and 10-20 white cells, will treat with p.o. Keflex for potential UTI. Otherwise medically cleared, contacted mental health for evaluation. Rylee evaluated the patient, please see her evaluation. Patient is agreeable to a voluntary placement. Unfortunately it does not appear as though placement will happen today. A rapid Covid was ordered. I will assess our situation to determine whether admission to our facility is reasonable versus boarding in the ER. I spoke with our warehouse unloader, at the moment she is hopeful for upcoming discharges from the floor however there are limited beds and decision was made to board in the ER with reassessment this evening. Medical Records Medical records reviewed: Yes I reviewed the patient's medical records. Lab Data Lab results reviewed: Yes I reviewed the patient's lab results. Lab results narrative: 01/27/21 14:05 Urine - Reflex from Ua Urine Culture - Pending Laboratory Tests Range/Units 01/27/21 01/27/21 01/27/21 12:10 12:10 12:10 WBC (4.4-10.8) 10^3/uL 6.82 RBC (4.36-5.78) 10^6/uL 4.15 L Hgb (13.5-17.5) g/dL 13.6 Hct (40.0-50.0) % 37.5 L MCV (80-95) fL 90.4 MCH (27.0-33.0) pg 32.8 MCHC (32.0-36.0) % 36.3 H RDW (11.8-14.1) % 11.6 L Plt Count (130-400) 10^3/uL 243 MPV (8.0-11.0) fL 8.2 Immature Gran % 0.3 Neutrophils % 74.2 Lymphocytes % 14.8 Monocytes % 9.5 Eosinophils % 0.6 Basophils % 0.6 Nucleated RBC % % 0 Absolute Neutrophils (1.2-6.7) 10^3/uL 5.06 Absolute Lymphocytes (1.2-3.4) 10^3/uL 1.01 L Absolute Monocytes (0.1-0.8) 10^3/uL 0.65 Absolute Eosinophils (0.0-0.7) 10^3/uL 0.04 Absolute Basophils (0.0-0.2) 10^3/uL 0.04 Sodium (136-145) mmol/L 131 L Potassium (3.5-5.1) mmol/L 4.0 Chloride (98-107) mmol/L 96 L Carbon Dioxide (21.0-32.0) mmol/L 26.0 Anion Gap (3-11) mmol/L 9.0 BUN (7-18) mg/dL 13 Creatinine (0.70-1.30) mg/dL 0.8 Estimated GFR/1.73 m2 (mL/min/1.73m2) >= 60.00 Glucose (74-106) mg/dL 131 H Calcium (8.5-10.1) mg/dL 8.5 Total Bilirubin (0.2-1.0) mg/dL 0.2 AST (15-37) U/L 16 ALT (16-63) U/L 33 Alkaline Phosphatase (46-116) U/L 103 Total Protein (6.4-8.2) g/dL 7.1 Albumin (3.4-5.0) g/dL 3.8 TSH (0.36-3.74) uIU/mL 1.07 Urine Color (Yellow) Urine Clarity (Clear) Urine pH (5-8) Ur Specific [place] (1.005-1.025) Urine Protein (Negative) mg/dL Urine Ketones (Negative) mg/dL Urine Blood (Negative) Urine Nitrite (Negative) Urine Bilirubin (Negative) Urine Urobilinogen (Up TO 0.2) EU/dL Ur Leukocyte Esterase (Negative) Urine RBC (0-2) HPF Urine WBC (0-5) HPF Ur Epithelial Cells (Negative) HPF Urine Crystals (Negative) HPF Urine Bacteria (Negative) HPF Urine Casts (Negative) LPF Urine Mucus (Negative) Ur Culture Indicated? Urine Glucose (Negative) mg/dL Salicylates (<2.8) mg/dL 3.0 Urine Opiates Screen (Negative) Urine Methadone Screen (Negative) Acetaminophen (10-30) ug/mL < 2 Ur Barbiturates Screen (Negative) Ur Tricyclics Screen (Negative) Ur Amphetamines Screen (Negative) Phenobarbital (15.0-40.0) ug/mL U Benzodiazepines Scrn (Negative) Urine Cocaine Screen (Negative) Ur THC Screen (Negative) Ethyl Alcohol (<3) mg/dL < 3.0 Range/Units 01/27/21 01/27/21 01/27/21 12:10 14:05 14:05 WBC (4.4-10.8) 10^3/uL RBC (4.36-5.78) 10^6/uL Hgb (13.5-17.5) g/dL Hct (40.0-50.0) % MCV (80-95) fL MCH (27.0-33.0) pg MCHC (32.0-36.0) % RDW (11.8-14.1) % Plt Count (130-400) 10^3/uL MPV (8.0-11.0) fL Immature Gran % Neutrophils % Lymphocytes % Monocytes % Eosinophils % Basophils % Nucleated RBC % % Absolute Neutrophils (1.2-6.7) 10^3/uL Absolute Lymphocytes (1.2-3.4) 10^3/uL Absolute Monocytes (0.1-0.8) 10^3/uL Absolute Eosinophils (0.0-0.7) 10^3/uL Absolute Basophils (0.0-0.2) 10^3/uL Sodium (136-145) mmol/L Potassium (3.5-5.1) mmol/L Chloride (98-107) mmol/L Carbon Dioxide (21.0-32.0) mmol/L Anion Gap (3-11) mmol/L BUN (7-18) mg/dL Creatinine (0.70-1.30) mg/dL Estimated GFR/1.73 m2 (mL/min/1.73m2) Glucose (74-106) mg/dL Calcium (8.5-10.1) mg/dL Total Bilirubin (0.2-1.0) mg/dL AST (15-37) U/L ALT (16-63) U/L Alkaline Phosphatase (46-116) U/L Total Protein (6.4-8.2) g/dL Albumin (3.4-5.0) g/dL TSH (0.36-3.74) uIU/mL Urine Color (Yellow) Yellow Urine Clarity (Clear) Sl cloudy Urine pH (5-8) 7.0 Ur Specific [place] (1.005-1.025) 1.020 Urine Protein (Negative) mg/dL Trace H Urine Ketones (Negative) mg/dL Negative Urine Blood (Negative) Negative Urine Nitrite (Negative) Negative Urine Bilirubin (Negative) Negative Urine Urobilinogen (Up TO 0.2) EU/dL 0.2 Ur Leukocyte Esterase (Negative) Large H Urine RBC (0-2) HPF 0-2 Urine WBC (0-5) HPF 10-20 H Ur Epithelial Cells (Negative) HPF Rare Urine Crystals (Negative) HPF Negative Urine Bacteria (Negative) HPF Moderate Urine Casts (Negative) LPF Negative Urine Mucus (Negative) Negative Ur Culture Indicated? Yes Urine Glucose (Negative) mg/dL Negative Salicylates (<2.8) mg/dL Urine Opiates Screen (Negative) Negative Urine Methadone Screen (Negative) Negative Acetaminophen (10-30) ug/mL Ur Barbiturates Screen (Negative) Positive A Ur Tricyclics Screen (Negative) Negative Ur Amphetamines Screen (Negative) Negative Phenobarbital (15.0-40.0) ug/mL 20.7 U Benzodiazepines Scrn (Negative) Negative Urine Cocaine Screen (Negative) Negative Ur THC Screen (Negative) Negative Ethyl Alcohol (<3) mg/dL HPI General Mode of arrival: ambulatory. Date/Time Provider Initiated Documentation: 01/27/21 11:21. Limitations to Documentation: no limitations. Information obtained by: patient. HPI Narrative: This is a 75-year-old gentleman, past medical history that includes BPH, GERD, headaches, hyperlipidemia, hypertension, former smoker, cognitive decline, anxiety, presenting to the ER today for evaluation of suicidal ideations. He reports 6 months of increasing stress, difficulty coping. He states I do not want to be here anymore. He cites his feelings stemming from his having dementia, having difficulties caring for her. 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 He tells me he has never tried to harm himself in the past. He tells me he was evaluated by his primary care provider yesterday, he brought up his stress and anxiety, but did not feel as though anything was fixed. He states now he is having suicidal thoughts, yesterday evening had a handful of pills. Decided not to take them because he felt as though they may only make him sick and would not kill him. He also states that he thought about finding a sharp knife or obtaining a gun. His family took his guns away so that this would not be an option. He also thought about driving his car off the road. He denies any recent illness or medical concerns. Denies recent trauma. Denies current headache, fever, chest pain, abdominal pain, nausea, vomiting, shortness of breath, diarrhea or constipation. Related Data Home Medications Medication Instructions Recorded Confirmed doxazosin 8 mg tablet 8 mg PO DAILY #30 tab-cap 04/18/20 01/27/21 lisinopril 20 mg tablet 20 mg PO BID #180 tab 07/25/20 01/27/21 ondansetron HCl 4 mg tablet 4 mg PO Q8H PRN #40 tab 10/01/20 01/27/21 finasteride 5 mg tablet 5 mg PO DAILY #90 tab-cap 10/03/20 01/27/21 phenobarbital 64.8 mg tablet 64.8 mg PO BID #60 tab 10/23/20 01/27/21 lovastatin 40 mg tablet 40 mg PO QPM #90 tab 11/30/20 01/27/21 omeprazole 40 mg capsule,delayed 40 mg PO DAILY #90 cap 11/30/20 01/27/21 release trazodone 50 mg tablet 50 mg PO QHS PRN #60 tab 01/09/21 01/27/21 Previous Rx's Medication Instructions Recorded lisinopril 20 mg tablet 20 mg PO BID #180 tab 07/25/20 ondansetron HCl 4 mg tablet 4 mg PO Q8H PRN #40 tab 10/01/20 finasteride 5 mg tablet 5 mg PO DAILY #90 tab-cap 10/03/20 phenobarbital 64.8 mg tablet 64.8 mg PO BID #60 tab 10/23/20 lovastatin 40 mg tablet 40 mg PO QPM #90 tab 11/30/20 omeprazole 40 mg capsule,delayed 40 mg PO DAILY #90 cap 11/30/20 release trazodone 50 mg tablet 50 mg PO QHS PRN #60 tab 01/09/21 Allergies Allergy/AdvReac Type Severity Reaction Status Date / Time pravastatin AdvReac Intermediate Nausea Verified 01/27/21 11:38 ibuprofen AdvReac Mild Contraindic Verified 01/27/21 11:38 ated General Stated Complaint: PsychEval JONATHAN: 2 Review of Systems Constitutional Constitutional: Denies fatigue, Denies fever(s), Reports headache(s) and Denies weakness Eyes Eyes: Denies change in vision ENT Ears, Nose, Mouth, and Throat: Reports headache(s) and Denies neck pain Cardiovascular Cardiovascular: Denies chest pain and Denies dyspnea Respiratory Respiratory: Denies cough and Denies dyspnea Gastrointestinal Gastrointestinal: Denies abdominal pain, Denies nausea and Denies vomiting Genitourinary Genitourinary: Denies dysuria Musculoskeletal Musculoskeletal: Denies back pain and Denies neck pain Integumentary/Breasts Skin/Breast: Denies rash Neurologic Neurologic: Reports headache(s) and Denies weakness Psychiatric Psychiatric: Reports anxiety, Reports depression, Denies homicidal ideation and Reports suicidal ideation Endocrine Endocrine: Denies fatigue Hematologic/Lymphatic Hematologic/Lymphatic: Denies easy bleeding and Denies easy bruising [facility] Medical History Barbiturate abuse Fioricet for decades; Phenobarb to manage withdrawal and maint Benign neoplasm of colon Hyperplastic 2010, repeat 2020 Benign prostatic hyperplasia (04/13/13) elevated PSA; S/P BX 2002 Erectile dysfunction Gastroesophageal reflux disease Generalized osteoarthrosis Hammer toe of right foot Hard of hearing Hearing aids Headache chronic fioricet use; discont 09/2020 with phenobarb Hiatal hernia Hyperlipidemia Hypertensive disorder Injury of head (10/23/1951) coma x 7 days Nasal polyp polypectomy x 2 Prostatitis (01/03/13) Smoker pipe Spinal stenosis C-spine Stress at home Trigger finger, right repaired by Dr Palacios Surgical History Hx of cholecystectomy (~05/2015) S/P rotator cuff repair Family History Sister Colon cancer Rheumatoid arthritis Father Heart disease Social History Smoking/Tobacco Use Status: Former Tobacco Use Tobacco: How many years used: 25 Smoking risk assessment performed?: Yes Alcohol Intake: never Drug use: Never Substance use type: does not use Adopted: No Caregiver/Support person: No Foster care: No Household members: spouse Housing: house Number of Children: 3 Communication Needs: Hard of Hearing Do you need help understanding health information?: Never 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 Exam Const General: cooperative, healthy appearing, comfortable and anxious Orientation: alert, awake, oriented to person, oriented to place and confused (Unsure of the exact date) [facility] Head: normal to inspection, normocephalic and atraumatic General nose exam: external nose normal Mouth: moist mucous membranes Throat: posterior oropharynx normal Eyes General: appearance normal, both eyes and all related structures Alignment and Position: alignment normal Periorbital: periorbital findings normal Eyelids: eyelids normal Conjunctivae: conjunctivae normal Sclera: sclerae normal Cornea: corneas normal Pupils: PERRL EOM: EOM intact bilaterally Direct ophthalmoscopy: normal light reflex Neck Neck: normal visual inspection, full ROM, no lymphadenopathy, no meningeal signs, trachea midline, supple and nontender Resp Effort & Inspection: normal respiratory effort and able to speak in complete sentences Auscultation: clear to auscultation bilaterally Cardio Rate: regular rate Rhythm: regular rhythm GI Inspection: normal to inspection Palpation: soft, not firm, no guarding, no pulsatile masses and nontender Auscultation: normal bowel sounds Back/Spine/Pelvis Back: No back tenderness Skin General skin exam: no rashes or lesions noted Neuro General: patient alert, patient awake, moves all extremities and no focal motor deficits Cognition: normal cognition Speech: speech normal Gait: normal gait Motor: muscle tone normal throughout and strength 5/5 throughout Sensory Exam: no sensory deficits noted Extrem General: normal to inspection, full ROM and capillary refill normal Psych Appearance: grossly normal Mental Status: mental status grossly normal Speech and Movement: restless Mood: anxious mood Affect: anxious affect Attitude: cooperative Thought Process: perseverating (On his and his home situation) Thought Content: suicidality Insight: limited Judgment: limited Course Vital Signs Vital signs: Vital Signs Temperature 36.8 C 01/27/21 11:26 Pulse 66 01/27/21 11:26 Respiratory Rate 18 01/27/21 11:26 Blood Pressure 138/63 01/27/21 11:26 Pulse Oximetry 98 01/27/21 11:26 Temperature 36.8 C 01/27/21 11:26 Temperature Source Temporal Artery Scan 01/27/21 11:26 Pulse 66 01/27/21 11:26 Respiratory Rate 18 01/27/21 11:26 Respiratory Effort Non-Labored 01/27/21 11:37 Blood Pressure 138/63 01/27/21 11:26 Blood Pressure Position Sitting 01/27/21 11:26 Pulse Oximetry 98 01/27/21 11:26 Oxygen Delivery Method Room Air 01/27/21 11:26 Oxygen Flow Rate 0 01/27/21 11:26 Pain Level 0 01/27/21 11:26
[2021-01-27 12:16] LABS: Abs Immature Grans 0.02 10^3/uL (0.0-0.06); Absolute Basophil Count 0.04 10^3/uL (0.0-0.2); Absolute Eosinophil Count 0.04 10^3/uL (0.0-0.7); Absolute Lymphocyte Count 1.01 10^3/uL (1.2-3.4); Absolute Monocyte Count 0.65 10^3/uL (0.1-0.8); Absolute Neutrophil Count 5.06 10^3/uL (1.2-6.7); Basophils % 0.6; Eosinophils % 0.6; HCT 37.5 % (40.0-50.0); HGB 13.6 g/dL (13.5-17.5); Immature Grans % 0.3; Lymphocytes % 14.8; MCH 32.8 pg (27.0-33.0); MCHC 36.3 % (32.0-36.0); MCV 90.4 fL (80-95); MPV 8.2 fL (8.0-11.0); Monocytes % 9.5; Neutrophils % 74.2; Nucleated RBC 0 %; Platelet Count 243 10^3/uL (130-400); RBC 4.15 10^6/uL (4.36-5.78); RDW 11.6 % (11.8-14.1); RDW-SD 38.5 fL; WBC 6.82 10^3/uL (4.4-10.8)
[2021-01-27 12:42] LABS: ALT 33 U/L (16-63); AST 16 U/L (15-37); Albumin 3.8 g/dL (3.4-5.0); Alkaline Phosphatase 103 U/L (46-116); BUN 13 mg/dL (7-18); Bilirubin, Total 0.2 mg/dL (0.2-1.0); CREATININE 0.8 mg/dL (0.70-1.30); Calcium 8.5 mg/dL (8.5-10.1); Chloride 96 mmol/L (98-107); Glucose 131 mg/dL (74-106); Sodium 131 mmol/L (136-145); TSH 1.07 uIU/mL (0.36-3.74); Total Protein 7.1 g/dL (6.4-8.2)
[2021-01-27 12:52] LABS: ETHANOL BLOOD < 3.0 mg/dL (<3)
[2021-01-27 12:53] LABS: Acetaminophen < 2 ug/mL (10-30)
--- NOTE | 2021-01-27 13:06 | PDOC.CMSAFED ---
- If Service Date Differs Date of service: 01/27/21 Time of Service: 13:07 Care Management Safety Plan Status: Voluntary Chief Complaint: Iker is a 75 year old man who lives in [place] with his . Iker is struggling to deal with stressors including his 's cognitive decline due to dementia. He presents in the ED today because of depression and suicidal ideation. He tells ED RN that he has thought of many ways of ending his life and came close to taking a handful of pills yesterday. A huddle is done with Gali, nursing shelter supervisor, Rylee, [facility] crisis screener, and Margaret, childcare center director. Martha, RN, and Misha, ED provider, are consulted but unable to attend huddle. VOLUNTARY FOR INPATIENT PSYCHIATRIC STABILIZATION. Patient is appropriate in all interactions since arriving at [facility]; Pt has demonstrated appropriate coping and communication skills, has articulated his or her needs and concerns and is fully engaged during staff interactions. Safety plan has been established with patient, and care team, to adhere to patient goals, identify restrictions based on behavioral status, address nutrition, and determine allowed personal belongings, tools for hygiene and personal care. Determine level of activity including ambulation, level of supervision, visitors, and determine privileges based on behaviors and level of engagement by pt. SAFETY PLAN: 1. Will remain on suicide precautions. In Paper Clothes 2. Will remain in room under direct supervision of one-on-one staff at all times provided by CPSO, RN CLINICAL TRIALS, COMP FIELD CASE MANAGER warehouse production worker. 3. May have paper cups, plates, finger foods as well as a cardboard spoon with which to eat meals. 4. Follow [facility] Management of the Admitted Behavioral Health Patient policy. 5. Comfort bath system only. 6. No personal belongin.gs 7. Visitors-No visitors at this time. 8. Activities: Television, coloring books, crayons, and other activities at RN discretion. 9. Bathroom privileges: May use the bathroom available in the room without supervision. 10. Phone: Phone use at RN discretion. 11. Due to VOLUNTARY status, if patient wishes to leave [facility], staff will contact [facility] Crisis Screener ([phone]) and On-Call Process Cheese Cooker ([phone]) as soon as possible. In the event of elopement, notify [facility] Police ([phone]). Patient is currently voluntarily at [facility] and seeking inpatient admission when a bed becomes available. [facility] Frontline Sales Team Leader will continue seeking placement. Please contact the Retail Service Technician Process Cheese Cooker ([phone]) and [facility] Sales Team Leader ([phone]) for any needed changes in the Safety Plan. Safety plan has been provided to interdepartmental care team.
[2021-01-27 14:08] LABS: PHENOBARBITAL 20.7 ug/mL (15.0-40.0)
[2021-01-27 14:09] LABS: Bilirubin Negative (Negative); Blood Negative (Negative); Clarity Sl Cloudy (Clear); Glucose Negative (Negative); Ketones Negative (Negative); Leukocyte Esterase Large (Negative); Nitrite Negative (Negative); Urobilinogen 0.2 EU/dL (Up TO 0.2)
[2021-01-27 14:16] LABS: Bacteria Moderate HPF (Negative); C & S Indicated? Yes; Casts Negative LPF (Negative); Crystals Negative HPF (Negative); Epithelial Cells Rare HPF (Negative); Mucus Negative (Negative); RBC 0-2 HPF (0-2)
[2021-01-27 14:20] LABS: *AMPHETAMINES SCREEN URINE Negative (Negative); *BARBITURATES SCREEN URINE POSITIVE (Negative); *BENZODIAZEPINES SCREEN URINE Negative (Negative); Cannabinoids THC Negative (Negative); Cocaine Screen,Urine Negative (Negative); METHADONE URINE SCREEN Negative (Negative); OPIATES URINE SCREEN Negative (Negative)
[2021-01-27 14:30] LABS: Tricyclic Antidepressants Negative (Negative)
--- NOTE | 2021-01-27 15:26 | PDOC.MHCN ---
<Rylee Tam - Last Filed: 01/27/21 15:40> Date of service: 01/27/21 Time of Service: 15:26 Mental Health Crisis Note <Rylee Turcios - Last Filed: 01/27/21 15:40> Presenting Issue How did you arrive at the ED and why did you come: Pt arrived to the ER today . via his step son with high anxiety and persistent thoughts to by suicide. Precipitating Factors Pt reported that he has been having on going thoughts t zak by suicide that have increased steadily over the past 6 months. Yesterday he held pills in his hands but didn't take any, held a gun but there was no bullets, tried to find a knife sharp enough. Disposition BEHAVIOR: Pt is extremely anxious and perseveres on his , their home, his not wanting to be here anymore. He is unable to move past these thoughts. EYE CONTACT: Eye contact is good. MOOD: Pt is anxious and depressed. AFFECT: Affect is difficult to district associate judge due to the Pt wearing a face mask. APPETITE: Pt reported that he eats but has little appetite. SLEEP(trouble falling/staying asleep: Pt reported that he sleeps but has a hard time getting motivated in the am to get up. This is not normal for him. Plan PT reported he knows he is in crisis because of what he is thinking and that he feels so overwhelmed. He acknowledges that he is not dealing well with it right now. He identified his daughter and step son as his natural supports. He is followed by Haritha Cortez and is to see Dr. Phelps tomorrow. For self care Pt takes his medications as prescribed. The one thing worth living for his his kids. Pt is willing to accept treatment today. He will be admitted and this clinician will do an in house referral for [facility]. They do not take referrals over the weekend so this will be looked at tomorrow. Signature Clinician's Name/Title: Rylee Turcios MS, [facility] Emergency Services Clinician, [facility]
[2021-01-27] MEDS: Cephalexin 500 MG CAP PO (15:32)
[2021-01-27] MEDS: LORazepam 0.5 MG TAB PO ×2 (15:32→20:08)
--- NOTE | 2021-01-27 17:43 | W.PM.HP.N ---
Date of service: 01/27/21 Time of Service: 17:43 Assessment and Plan Assessment and plan (1) Suicidal ideations: Status: Acute Assessment and plan: SI in setting of acute on chronic stress. Will await transfer to facility. SI: standard suicide precautions Pyuria: I note multiple urine cxx in past with neg result. Will continue abx pending cx. Will change out to Cipro, believe this will provide better empiric coverage. History of Present Illness History of Present Illness Chief Complaint: SI Narrative: 75 male with ongoing h/o adjustment disorder due to multiple stressors, is being managed by PCP and mental health. Comes in today with escalating stress and anxiety and suicidal ideation. Medically cleared, voluntary admission pending availability of psych facility. Incidental finding of pyuria, given dose Keflex.[place] urinary symptoms. Note also use of low dose phenobarbital. Apparently this is ongoing tx for prior h/o Fioricet abuse. Review of Systems All systems reviewed & are unremarkable except as noted in HPI and below PFSH Medical History Barbiturate abuse Fioricet for decades; Phenobarb to manage withdrawal and maint Benign neoplasm of colon Hyperplastic 2010, repeat 2020 Benign prostatic hyperplasia (04/13/13) elevated PSA; S/P BX 2002 Erectile dysfunction Gastroesophageal reflux disease Generalized osteoarthrosis Hammer toe of right foot Hard of hearing Hearing aids Headache chronic fioricet use; discont 09/2020 with phenobarb Hiatal hernia Hyperlipidemia Hypertensive disorder Injury of head (10/23/1951) coma x 7 days Nasal polyp polypectomy x 2 Prostatitis (01/03/13) Smoker pipe Spinal stenosis C-spine Stress at home Trigger finger, right repaired by Dr Palacios Surgical History Hx of cholecystectomy (~05/2015) S/P rotator cuff repair Family History Sister Colon cancer Rheumatoid arthritis Father Heart disease Social History Smoking/Tobacco Use Status: Former Tobacco Use Tobacco: How many years used: 25 Smoking risk assessment performed?: Yes Alcohol Intake: never Drug use: Never Substance use type: does not use Adopted: No Caregiver/Support person: No Foster care: No Household members: spouse Housing: house Number of Children: 3 Communication Needs: Hard of Hearing Do you need help understanding health information?: Never 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 Meds Home Medications and Allergies Allergies Allergy/AdvReac Type Severity Reaction Status Date / Time pravastatin AdvReac Intermediate Nausea Verified 01/27/21 11:38 ibuprofen AdvReac Mild Contraindic Verified 01/27/21 11:38 ated Home Medications Medication Instructions Recorded Confirmed Type doxazosin 8 mg tablet 8 mg PO DAILY #30 tab-cap 04/18/20 01/27/21 History lisinopril 20 mg tablet 20 mg PO BID #180 tab 07/25/20 01/27/21 Rx ondansetron HCl 4 mg tablet 4 mg PO Q8H PRN #40 tab 10/01/20 01/27/21 Rx finasteride 5 mg tablet 5 mg PO DAILY #90 tab-cap 10/03/20 01/27/21 Rx phenobarbital 64.8 mg tablet 64.8 mg PO BID #60 tab 10/23/20 01/27/21 Rx lovastatin 40 mg tablet 40 mg PO QPM #90 tab 11/30/20 01/27/21 Rx omeprazole 40 mg capsule,delayed 40 mg PO DAILY #90 cap 11/30/20 01/27/21 Rx release trazodone 50 mg tablet 50 mg PO QHS PRN #60 tab 01/09/21 01/27/21 Rx Exam Narrative Exam Narrative: 138/63, 66, 36.8, 18, 98% RA. HEENT atraumatic; neck supple; lungs clear; heart RRR; abdomen soft and nontender, protruberant; extremities w/o edema; neuro pressured speech, Ox3, moves all 4s Results Labs Result diagrams: 01/27/21 12:10 01/27/21 12:10 Labs: Laboratory Results - last 24 hr 01/27/21 01/27/21 01/27/21 12:10 12:10 12:10 WBC 6.82 RBC 4.15 L Hgb 13.6 Hct 37.5 L MCV 90.4 MCH 32.8 MCHC 36.3 H RDW 11.6 L Plt Count 243 MPV 8.2 Immature Gran % 0.3 Neutrophils % 74.2 Lymphocytes % 14.8 Monocytes % 9.5 Eosinophils % 0.6 Basophils % 0.6 Nucleated RBC % 0 Absolute Neutrophils 5.06 Absolute Lymphocytes 1.01 L Absolute Monocytes 0.65 Absolute Eosinophils 0.04 Absolute Basophils 0.04 Sodium 131 L Potassium 4.0 Chloride 96 L Carbon Dioxide 26.0 Anion Gap 9.0 BUN 13 Creatinine 0.8 Estimated GFR/1.73 m2 >= 60.00 Glucose 131 H Calcium 8.5 Total Bilirubin 0.2 AST 16 ALT 33 Alkaline Phosphatase 103 Total Protein 7.1 Albumin 3.8 TSH 1.07 Urine Color Urine Clarity Urine pH Ur Specific [place] Urine Protein Urine Ketones Urine Blood Urine Nitrite Urine Bilirubin Urine Urobilinogen Ur Leukocyte Esterase Urine RBC Urine WBC Ur Epithelial Cells Urine Crystals Urine Bacteria Urine Casts Urine Mucus Ur Culture Indicated? Urine Glucose Salicylates 3.0 Urine Opiates Screen Urine Methadone Screen Acetaminophen < 2 Ur Barbiturates Screen Ur Tricyclics Screen Ur Amphetamines Screen Phenobarbital U Benzodiazepines Scrn Urine Cocaine Screen Ur THC Screen Ethyl Alcohol < 3.0 COVID-19 Source 01/27/21 01/27/21 01/27/21 12:10 14:05 14:05 WBC RBC Hgb Hct MCV MCH MCHC RDW Plt Count MPV Immature Gran % Neutrophils % Lymphocytes % Monocytes % Eosinophils % Basophils % Nucleated RBC % Absolute Neutrophils Absolute Lymphocytes Absolute Monocytes Absolute Eosinophils Absolute Basophils Sodium Potassium Chloride Carbon Dioxide Anion Gap BUN Creatinine Estimated GFR/1.73 m2 Glucose Calcium Total Bilirubin AST ALT Alkaline Phosphatase Total Protein Albumin TSH Urine Color Yellow Urine Clarity Sl cloudy Urine pH 7.0 Ur Specific [place] 1.020 Urine Protein Trace H Urine Ketones Negative Urine Blood Negative Urine Nitrite Negative Urine Bilirubin Negative Urine Urobilinogen 0.2 Ur Leukocyte Esterase Large H Urine RBC 0-2 Urine WBC 10-20 H Ur Epithelial Cells Rare Urine Crystals Negative Urine Bacteria Moderate Urine Casts Negative Urine Mucus Negative Ur Culture Indicated? Yes Urine Glucose Negative Salicylates Urine Opiates Screen Negative Urine Methadone Screen Negative Acetaminophen Ur Barbiturates Screen Positive A Ur Tricyclics Screen Negative Ur Amphetamines Screen Negative Phenobarbital 20.7 U Benzodiazepines Scrn Negative Urine Cocaine Screen Negative Ur THC Screen Negative Ethyl Alcohol COVID-19 Source 01/27/21 16:10 WBC RBC Hgb Hct MCV MCH MCHC RDW Plt Count MPV Immature Gran % Neutrophils % Lymphocytes % Monocytes % Eosinophils % Basophils % Nucleated RBC % Absolute Neutrophils Absolute Lymphocytes Absolute Monocytes Absolute Eosinophils Absolute Basophils Sodium Potassium Chloride Carbon Dioxide Anion Gap BUN Creatinine Estimated GFR/1.73 m2 Glucose Calcium Total Bilirubin AST ALT Alkaline Phosphatase Total Protein Albumin TSH Urine Color Urine Clarity Urine pH Ur Specific [place] Urine Protein Urine Ketones Urine Blood Urine Nitrite Urine Bilirubin Urine Urobilinogen Ur Leukocyte Esterase Urine RBC Urine WBC Ur Epithelial Cells Urine Crystals Urine Bacteria Urine Casts Urine Mucus Ur Culture Indicated? Urine Glucose Salicylates Urine Opiates Screen Urine Methadone Screen Acetaminophen Ur Barbiturates Screen Ur Tricyclics Screen Ur Amphetamines Screen Phenobarbital U Benzodiazepines Scrn Urine Cocaine Screen Ur THC Screen Ethyl Alcohol COVID-19 Source Nasopharyx Last Vital Signs Temp 36.8 C 01/27/21 11:26 Pulse 66 01/27/21 11:26 Resp 18 01/27/21 11:26 BP 138/63 01/27/21 11:26 Pulse Ox 98 01/27/21 11:26 COVID-19 Screening Have you, or household traveled for leisure in last 14 days?: No Had IN PERSON contact w/suspected or confirmed C-19 person: No
[2021-01-27 18:25] VITALS: BP 144/68; PULSE 75; RESP 16; TEMP 36.3; O2SAT 97
[2021-01-27 19:27] VITALS: BP 146/68; PULSE 78; RESP 16; TEMP 36.4; O2SAT 100
[2021-01-27] MEDS: Ciprofloxacin 500 MG TAB PO (20:06)
[2021-01-27] MEDS: PHENobarbital 64.8 MG TAB PO (20:07)
[2021-01-27] MEDS: Acetaminophen 325 MG TAB 650 MG PO (20:07)
[2021-01-27] MEDS: Lovastatin 40 MG TAB PO (20:07)
[2021-01-27] MEDS: Lisinopril 20 MG TAB PO (20:08)
[2021-01-27 21:45] LABS: COVID-19 PCR Negative (Negative)
[2021-01-27] MEDS: traZODone 50 MG TAB PO (22:15)
[2021-01-27 23:24] VITALS: BP 141/73; PULSE 61; RESP 16; TEMP 36.6; O2SAT 96
[2021-01-28 06:41] VITALS: BP 158/78; PULSE 69; RESP 18; TEMP 36.4; O2SAT 96
[2021-01-28] MEDS: Omeprazole 20 MG CAPCR 40 MG PO (09:15)
[2021-01-28] MEDS: PHENobarbital 64.8 MG TAB PO (09:15)
[2021-01-28] MEDS: Ciprofloxacin 500 MG TAB PO (09:15)
[2021-01-28] MEDS: Finasteride 5 MG TAB PO (09:15)
[2021-01-28] MEDS: Lisinopril 20 MG TAB PO (09:15)
--- NOTE | 2021-01-28 09:32 | CMSP_ITS ---
- If Service Date Differs Date of service: 01/28/21 Time of Service: 09:34 Care Management Safety Plan Status: Voluntary VOLUNTARY FOR INPATIENT PSYCHIATRIC STABILIZATION. Iker remains anxious; reportedly baseline behavior since admission. He is standing when meets with him, perseverating about his 's care needs. He will discharge from [facility] today, attend Neurology appointment at 1300 and then admit to the [facility] care bed. Safety plan has been established with patient, and care team, to adhere to patient goals, identify restrictions based on behavioral status, address nutrition, and determine allowed personal belongings, tools for hygiene and personal care. Determine level of activity including ambulation, level of supervision, visitors, and determine privileges based on behaviors and level of engagement by pt. SAFETY PLAN: 1. Will remain on suicide precautions. In Paper Clothes 2. Will remain in room under direct supervision of one-on-one staff at all times provided by CPSO, BOILER ATTENDANT, DEPALLETIZER OPERATOR picking machine operator helper. 3. May have paper cups, plates, finger foods as well as a cardboard spoon with which to eat meals. 4. Follow [facility] Management of the Admitted Behavioral Health Patient policy. 5. Comfort bath system only. 6. No personal belongings 7. Visitors-No visitors at this time. 8. Activities: Television, remote coloring books, crayons, and other activities at RN discretion. 9. Bathroom privileges: May use the bathroom available in the room without supervision, access to shower room permitted at RN discretion. 10. Phone: use at RN discretion. 11. Due to VOLUNTARY status, if patient wishes to leave [facility], staff will contact [facility] Crisis Screener ([phone]) and On-Call Assembling Fabricator ([phone]) as soon as possible. In the event of elopement, notify [facility] Police ([phone]). Patient is currently voluntarily at [facility] and seeking inpatient admission when a bed becomes available. [facility] Frontline Commercial Collections Specialist will continue seeking p lacement. Please contact the Broadcast Journalist Assembling Fabricator ([phone]) and [facility] Commercial Collections Specialist ([phone]) for any needed changes in the Safety Plan. Safety plan has been provided to interdepartmental care team.
--- NOTE | 2021-01-28 09:32 | PDOC.CMSAFE ---
- If Service Date Differs Date of service: 01/28/21 Time of Service: 09:34 Care Management Safety Plan Status: Voluntary VOLUNTARY FOR INPATIENT PSYCHIATRIC STABILIZATION. Iker remains anxious; reportedly baseline behavior since admission. He is standing when meets with him, perseverating about his 's care needs. He will discharge from [facility] today, attend Neurology appointment at 1300 and then admit to the [facility] care bed. Safety plan has been established with patient, and care team, to adhere to patient goals, identify restrictions based on behavioral status, address nutrition, and determine allowed personal belongings, tools for hygiene and personal care. Determine level of activity including ambulation, level of supervision, visitors, and determine privileges based on behaviors and level of engagement by pt. SAFETY PLAN: 1. Will remain on suicide precautions. In Paper Clothes 2. Will remain in room under direct supervision of one-on-one staff at all times provided by CPSO, DATA ARCHITECT, FARMER AND GRAZIER media monitor. 3. May have paper cups, plates, finger foods as well as a cardboard spoon with which to eat meals. 4. Follow [facility] Management of the Admitted Behavioral Health Patient policy. 5. Comfort bath system only. 6. No personal belongings 7. Visitors-No visitors at this time. 8. Activities: Television, remote coloring books, crayons, and other activities at RN discretion. 9. Bathroom privileges: May use the bathroom available in the room without supervision, access to shower room permitted at RN discretion. 10. Phone: use at RN discretion. 11. Due to VOLUNTARY status, if patient wishes to leave [facility], staff will contact [facility] Crisis Screener ([phone]) and On-Call Laborer [place] ([phone]) as soon as possible. In the event of elopement, notify [facility] Police ([phone]). Patient is currently voluntarily at [facility] and seeking inpatient admission when a bed becomes available. [facility] Frontline Medication Assistant will continue seeking placement. Please contact the Bookseamer Blindstitch Laborer [place] ([phone]) and [facility] Medication Assistant ([phone]) for any needed changes in the Safety Plan. Safety plan has been provided to interdepartmental care team.
--- NOTE | 2021-01-28 09:32 | W.PM.DS.N ---
Date of service: 01/28/21 Time of Service: 09:33 DS: Diagnosis Discharge Diagnosis (1) Suicidal ideations: Status: Acute Discharge Plan Disposition Patient Disposition: OTHER Condition: Fair Discharge Details Reason For Visit: SI Admit Date/Time: 01/27/21 18:02 Admit Provider: Hugh Sagastume Attending Provider: Hugh Sagastume Primary Care Provider: Haritha Cortez Hospital Course Hospital Course: Iker Najera is a 75 year old man with a past medical history of cognitive decline, anxiety, HTN, BPH, GERD, JOHNSON, former smoker, spinal stenosis and depression who presented to the ED yesterday with reports of increased stress, difficulty coping and suicidal thoughts. 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 In the ED, he reported having a handful of medication which he considered taking but did not. He was noted to have pyuria on UA and a urine culture is pending. He is on empiric Cipro pending urine culture results. He was admitted to the transition unit with a CPSO, safety plan and mental health consult. He was seen by mental health today. He continues to worry about his 's safety at home. Care management has been in touch with the family and assured him that she is being cared for by their children. He explained again that he thought about taking all of his medications at once to end his life prior to coming to the hospital and also held his shot gun without a bullet and considered using it to end his life. A plan has been made for him to go to the [facility] care bed today. He has an appointment scheduled with Neurology this afternoon. He will be transported to his Neurology visit and then to the care bed where he will be monitored by [facility] and considered for inpatient psychiatric care. He is COVID negative. He will remain on Cipro for UTI pending urine culture results. Home Meds and New Rx's Prescriptions: New ciprofloxacin HCl 500 mg Tablet 500 mg PO BID Qty: 10 RF: 0 Continued phenobarbital 64.8 mg tablet 64.8 mg PO BID Qty: 60 RF: 5 lisinopril 20 mg tablet 20 mg PO BID Qty: 180 RF: 3 finasteride 5 mg tablet 5 mg PO DAILY Qty: 90 RF: 3 doxazosin 8 mg tablet 8 mg PO DAILY Qty: 30 RF: 6 lovastatin 40 mg tablet 40 mg PO QPM Qty: 90 RF: 3 omeprazole 40 mg capsule,delayed release(DR/EC) 40 mg PO DAILY Qty: 90 RF: 3 trazodone 50 mg tablet 50 mg PO QHS PRN (Reason: sleep) Qty: 60 RF: 3 No Action ondansetron HCl [Zofran] 4 mg tablet 4 mg PO Q8H PRN (Reason: nausea and vomiting) Qty: 40 RF: 0 Discharge Instructions Instructions: Help Prevent Suicide in Older Adults (DC) Additional Instructions: Take all of the antibiotics for UTI unless you are told to stop. You are being discharged to the [facility] care bed today. Stand Alone Forms: Nursing Discharge Form Activity:: Activity as Tolerated Equipment/Supplies:: No Equipment Needed Diet:: As Tolerated Discharge Orders Discharge Orders: Discharge Order (Routine); Ordered 01/28/21 Ordered By: Gali Ortega DS: Summary Time Spent with Patient providing and/or coordinating discharge services: Greater than 30 minutes Status at Discharge Functional status at discharge: independent ambulation Overall status at discharge: patient is not back to baseline Mental Status: mental status grossly normal Speech and Movement: speech and movement normal Mood: anxious mood Affect: anxious affect Exam Narrative Exam Narrative: General: well-appearing, 75 year old man, standing outside the door to his room in the transition unit. CPSO present. Talking continuously. Answers questions appropriately. HEENT: normocephalic, atraumatic, wearing glasses, makes good eye contact. Neck: supple, no JVD. Respiratory: respirations appear even and unlabored. Extremities: moves all 4 extremities freely. Psych: appears anxious. Psych Mental Status: mental status grossly normal Speech and Movement: speech and movement normal Mood: anxious mood Affect: anxious affect DS: Data Vitals/I&O Vitals and I&O: Vital Signs Temperature 36.4 C L 01/28/21 06:41 Temperature Source Tympanic 01/28/21 06:41 Pulse 69 01/28/21 06:41 Pulse Rhythm Regular 01/28/21 04:01 Respiratory Rate 18 01/28/21 06:41 Respiratory Effort Non-Labored 01/28/21 04:01 Respiratory Depth Normal 01/28/21 04:01 Respiratory Pattern Normal 01/28/21 04:01 Blood Pressure 158/78 H 01/28/21 06:41 Blood Pressure Position Sitting 01/27/21 11:26 Pulse Oximetry 96 01/28/21 06:41 Oxygen Delivery Method Room Air 01/28/21 06:41 Oxygen Flow Rate 0 01/28/21 06:41 Pain Level 0 01/28/21 06:41 Comment 01/27/21 18:25 Intake & Output 01/27/21 01/27/21 01/28/21 11:59 23:59 11:59 Intake Total 500 / 500 720 / 720 Balance 500 / 500 720 / 720 Weight 70.307 kg 70.307 kg Intake: Oral 500 / 500 720 / 720 Other: Urine Color Yellow Urine Odor Normal Comment pt using bathroom independently; urine not visualized by RN Voiding Methods Toilet Data Completed and Pending Labs on day of discharge: Labs from last 24 hours 01/27/21 01/27/21 01/27/21 16:10 14:05 14:05 WBC RBC Hgb Hct MCV MCH MCHC RDW Plt Count MPV Immature Gran % Neutrophils % Lymphocytes % Monocytes % Eosinophils % Basophils % Nucleated RBC % Absolute Neutrophils Absolute Lymphocytes Absolute Monocytes Absolute Eosinophils Absolute Basophils Sodium Potassium Chloride Carbon Dioxide Anion Gap BUN Creatinine Estimated GFR/1.73 m2 Glucose Calcium Total Bilirubin AST ALT Alkaline Phosphatase Total Protein Albumin TSH Urine Color Yellow Urine Clarity Sl cloudy Urine pH 7.0 Ur Specific [place] 1.020 Urine Protein Trace H Urine Ketones Negative Urine Blood Negative Urine Nitrite Negative Urine Bilirubin Negative Urine Urobilinogen 0.2 Ur Leukocyte Esterase Large H Urine RBC 0-2 Urine WBC 10-20 H Ur Epithelial Cells Rare Urine Crystals Negative Urine Bacteria Moderate Urine Casts Negative Urine Mucus Negative Ur Culture Indicated? Yes Urine Glucose Negative Salicylates Urine Opiates Screen Negative Urine Methadone Screen Negative Acetaminophen Ur Barbiturates Screen Positive A Ur Tricyclics Screen Negative Ur Amphetamines Screen Negative Phenobarbital U Benzodiazepines Scrn Negative Urine Cocaine Screen Negative Ur THC Screen Negative Ethyl Alcohol COVID-19 Source Nasopharyx SARS-CoV-2 (PCR) Negative 01/27/21 01/27/21 01/27/21 12:10 12:10 12:10 WBC 6.82 RBC 4.15 L Hgb 13.6 Hct 37.5 L MCV 90.4 MCH 32.8 MCHC 36.3 H RDW 11.6 L Plt Count 243 MPV 8.2 Immature Gran % 0.3 Neutrophils % 74.2 Lymphocytes % 14.8 Monocytes % 9.5 Eosinophils % 0.6 Basophils % 0.6 Nucleated RBC % 0 Absolute Neutrophils 5.06 Absolute Lymphocytes 1.01 L Absolute Monocytes 0.65 Absolute Eosinophils 0.04 Absolute Basophils 0.04 Sodium Potassium Chloride Carbon Dioxide Anion Gap BUN Creatinine Estimated GFR/1.73 m2 Glucose Calcium Total Bilirubin AST ALT Alkaline Phosphatase Total Protein Albumin TSH Urine Color Urine Clarity Urine pH Ur Specific [place] Urine Protein Urine Ketones Urine Blood Urine Nitrite Urine Bilirubin Urine Urobilinogen Ur Leukocyte Esterase Urine RBC Urine WBC Ur Epithelial Cells Urine Crystals Urine Bacteria Urine Casts Urine Mucus Ur Culture Indicated? Urine Glucose Salicylates 3.0 Urine Opiates Screen Urine Methadone Screen Acetaminophen < 2 Ur Barbiturates Screen Ur Tricyclics Screen Ur Amphetamines Screen Phenobarbital 20.7 U Benzodiazepines Scrn Urine Cocaine Screen Ur THC Screen Ethyl Alcohol COVID-19 Source SARS-CoV-2 (PCR) 01/27/21 12:10 WBC RBC Hgb Hct MCV MCH MCHC RDW Plt Count MPV Immature Gran % Neutrophils % Lymphocytes % Monocytes % Eosinophils % Basophils % Nucleated RBC % Absolute Neutrophils Absolute Lymphocytes Absolute Monocytes Absolute Eosinophils Absolute Basophils Sodium 131 L Potassium 4.0 Chloride 96 L Carbon Dioxide 26.0 Anion Gap 9.0 BUN 13 Creatinine 0.8 Estimated GFR/1.73 m2 >= 60.00 Glucose 131 H Calcium 8.5 Total Bilirubin 0.2 AST 16 ALT 33 Alkaline Phosphatase 103 Total Protein 7.1 Albumin 3.8 TSH 1.07 Urine Color Urine Clarity Urine pH Ur Specific [place] Urine Protein Urine Ketones Urine Blood Urine Nitrite Urine Bilirubin Urine Urobilinogen Ur Leukocyte Esterase Urine RBC Urine WBC Ur Epithelial Cells Urine Crystals Urine Bacteria Urine Casts Urine Mucus Ur Culture Indicated? Urine Glucose Salicylates Urine Opiates Screen Urine Methadone Screen Acetaminophen Ur Barbiturates Screen Ur Tricyclics Screen Ur Amphetamines Screen Phenobarbital U Benzodiazepines Scrn Urine Cocaine Screen Ur THC Screen Ethyl Alcohol < 3.0 COVID-19 Source SARS-CoV-2 (PCR) 01/27/21 14:05 Urine - Reflex from [facility] Urine Culture - Pending Preliminary micro results at discharge 01/27/21 14:05 Urine Culture - Pending Urine - Reflex from [facility] Medical History Barbiturate abuse Fioricet for decades; Phenobarb to manage withdrawal and maint Benign neoplasm of colon Hyperplastic 2010, repeat 2021 Benign prostatic hyperplasia (04/13/13) elevated PSA; S/P BX 2002 Erectile dysfunction Gastroesophageal reflux disease Generalized osteoarthrosis Hammer toe of right foot Hard of hearing Hearing aids Headache chronic fioricet use; discont 09/2020 with phenobarb Hiatal hernia Hyperlipidemia Hypertensive disorder Injury of head (10/23/1951) coma x 7 days Nasal polyp polypectomy x 2 Prostatitis (01/03/13) Smoker pipe Spinal stenosis C-spine Stress at home Trigger finger, right repaired by Dr Palacios Surgical History Hx of cholecystectomy (~05/2015) S/P rotator cuff repair Family History Sister Colon cancer Rheumatoid arthritis Father Heart disease Social History Smoking/Tobacco Use Status: Former Tobacco Use Tobacco: How many years used: 25 Smoking risk assessment performed?: Yes Alcohol Intake: never Drug use: Never Substance use type: does not use Adopted: No Caregiver/Support person: No Foster care: No Household members: spouse Housing: house Number of Children: 3 Communication Needs: Hard of Hearing Do you need help understanding health information?: Never 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
--- NOTE | 2021-01-28 10:05 | W.INMHPGNOTE ---
Date of service: 01/28/21 Time of Service: 10:05 Mental Health Crisis Note Presenting Issue How did you arrive at the ED and why did you come: Pt arrived yesterday 3 after disclosing to his step son that he had been having SI. Step son dropped him off. Precipitating Factors PT still endorses SI this am. He is not showing signs of delusions. Disposition BEHAVIOR: Pt is cooperative but still perseverates on his and home. He is easier to distract today than yesterday back to the converstaion. EYE CONTACT: Pt makes good eye contact. MOOD: Pt is in a better mood today but still significantly anxious. AFFECT: Pt's affect is anxious and worried. APPETITE: PT is eating. SLEEP(trouble falling/staying asleep: Pt reported that he did sleep well last night even though he woke several times. Plan Pt is still agreeable to going to the CARE Bed. He has an appointment with Neurology today at 1pm and so will be discharged at 12:30 so that he can make that appointment and then will be picked up by his son and transported to the CARE Bed. Pt will be reassessed daily while he is there to ensure he is making progress. Signature Clinician's Name/Title: Rylee Turcios MS, [facility] Emergency Services Clinician, [facility]
--- NOTE | 2021-01-28 16:05 | PDOC.CMDIS ---
LACE Index Scoring Tool - Questions: Length of Stay (in days): 1 Acuity (Admit via E.D.?): Yes E.D. Visits: 2 - Answers: Total Score: 6 Risk of Readmission: Low Risk Care Management Discharge Reason for Hospitalization: SI Discharge Plan: Iker will be discharged to the care of [facility] who will place Iker in a crisis bed. Rylee came to screen Iker this morning and coordinated his admission to the [facility] crisis bed. She requested this promotion writer coordinate transport for Iker to still attend his previously scheduled neurology appointment. CM notified Neurology of plan, they provided an earlier appointment time of 1:00 instead of 1:30 to accommodate Iker. Lb, Iker's step son gathered his belongings, medications and picked up antibiotic prescription from the pharmacy prior to retrieving Iker from his Neurology appointment and transporting him to [facility] crisis bed. Patient/Family Education Needs: Reviewed plan with Iker and his family. Services Needed at Discharge: Transportation - MH Services (Omit if N/A) Current MH Services: [facility] (Care Bed-coordinated by Rylee; [facility].)
== END 2021-01-28 12:47 | disposition other institution (70) ==
LOC: ER 18:13 → MS 19:34
PROVIDERS: Physician Assistant; Admitting Provider General Practice; Emergency Provider Physician Assistant; PCP Nurse Practitioner Adult Health; Visit Provider General Practice
DX: F32.9 Major depressive disorder, single episode, unspecified (principal); R45.851 Suicidal ideations; F41.9 Anxiety disorder, unspecified; Z73.3 Stress, not elsewhere classified; Z63.6 Dependent relative needing care at home; N40.0 Benign prostatic hyperplasia without lower urinary tract symptoms; K21.9 Gastro-esophageal reflux disease without esophagitis; Z87.891 Personal history of nicotine dependence; Z20.822 Contact with and (suspected) exposure to COVID-19; N39.9 Disorder of urinary system, unspecified; F13.10 Sedative, hypnotic or anxiolytic abuse, uncomplicated; H91.90 Unspecified hearing loss, unspecified ear; M15.9 Polyosteoarthritis, unspecified; K44.9 Diaphragmatic hernia without obstruction or gangrene; E78.5 Hyperlipidemia, unspecified; I10 Essential (primary) hypertension; M48.02 Spinal stenosis, cervical region
CPT/HCPCS: 36415; 80053; 80307; 99221; 99239; 99285; 80184; 80320; 80329; 81003; 81015; 84443; 85025; 87086; 99217; 99218; 99283; G0378

== ENCOUNTER → 2021-01-28 12:55 | Outpatient (BNVA) | payer MEDICARE, SELFPAY | PROVIDERS: PCP Nurse Practitioner Adult Health; Referring Provider Nurse Practitioner Adult Health; Visit Provider Psychiatry & Neurology Neurology | DX: R69 Illness, unspecified (principal) ==

== ENCOUNTER 2021-02-04 16:07 | Outpatient (REF) | payer MEDICARE, SELFPAY ==
[2021-02-04 18:07] LABS: Abs Immature Grans 0.01 10^3/uL (0.0-0.06); Absolute Basophil Count 0.04 10^3/uL (0.0-0.2); Absolute Eosinophil Count 0.05 10^3/uL (0.0-0.7); Absolute Monocyte Count 0.63 10^3/uL (0.1-0.8); Absolute Neutrophil Count 4.04 10^3/uL (1.2-6.7); Basophils % 0.7; Eosinophils % 0.9; HCT 34.8 % (40.0-50.0); HGB 12.6 g/dL (13.5-17.5); Immature Grans % 0.2; Lymphocytes % 17.3; MCH 32.6 pg (27.0-33.0); MCHC 36.2 % (32.0-36.0); MCV 89.9 fL (80-95); MPV 8.6 fL (8.0-11.0); Monocytes % 10.9; Nucleated RBC 0 %; Platelet Count 265 10^3/uL (130-400); RBC 3.87 10^6/uL (4.36-5.78); RDW 11.5 % (11.8-14.1); RDW-SD 37.8 fL; WBC 5.77 10^3/uL (4.4-10.8)
[2021-02-04 18:46] LABS: ALT 48 U/L (16-63); AST 28 U/L (15-37); Albumin 3.3 g/dL (3.4-5.0); Alkaline Phosphatase 103 U/L (46-116); Anion Gap 9.1 mmol/L (3-11); BUN 12 mg/dL (7-18); Bilirubin, Total 0.2 mg/dL (0.2-1.0); CO2 26.9 mmol/L (21.0-32.0); CREATININE 0.8 mg/dL (0.70-1.30); Calcium 8.3 mg/dL (8.5-10.1); Chloride 94 mmol/L (98-107); Glucose 101 mg/dL (74-106); Potassium 3.9 mmol/L (3.5-5.1); Sodium 130 mmol/L (136-145); Total Protein 6.4 g/dL (6.4-8.2)
== END 2021-02-04 16:08 | disposition home or self-care (01) ==
LOC: LBN 16:07
PROVIDERS: PCP Nurse Practitioner Adult Health; Visit Provider Nurse Practitioner Adult Health
DX: E87.1 Hypo-osmolality and hyponatremia (principal); R61 Generalized hyperhidrosis; R50.9 Fever, unspecified
CPT/HCPCS: 80053; 85025

== ENCOUNTER 2021-02-13 21:51 | Emergency (ER) | payer MEDICARE, SELFPAY ==
[2021-02-13] VITALS (12 sets, daily range): BP systolic 150–194; BP diastolic 65–82; PULSE 55–72; RESP 18–20; TEMP 36.5; O2SAT 94–99
--- NOTE | 2021-02-13 21:38 | ED.GENADUL_ITS ---
Discharge Plan Disposition Patient Disposition: OTHER Condition: Stable Discharge Details Clinical Impression: Anxiety, Abdominal pain, Shortness of breath Primary Care Provider: Haritha Cortez ED Provider: Misha Baxter Home Meds and New Rx's Prescriptions: Continued escitalopram oxalate 20 mg tablet 20 mg PO DAILY RF: 0 risperidone 0.5 mg tablet 0.5 mg PO QHS RF: 0 lisinopril 20 mg tablet 20 mg PO BID Qty: 180 RF: 3 finasteride 5 mg tablet 5 mg PO DAILY Qty: 90 RF: 3 acetaminophen 325 mg tablet 650 mg PO Q4H PRNRF: 0 calcium carbonate [Tums E-X] 300 mg (750 mg) tablet,chewable 600 mg PO .q2-4 h PRNRF: 0 doxazosin 8 mg tablet 8 mg PO HS Qty: 30 RF: 6 lovastatin 40 mg tablet 40 mg PO QPM Qty: 90 RF: 3 omeprazole 40 mg capsule,delayed release(DR/EC) 40 mg PO DAILY Qty: 90 RF: 3 trazodone 50 mg tablet 50 mg PO QHS PRN (Reason: sleep) Qty: 60 RF: 3 guaifenesin [Tussin] 100 mg/5 mL Liquid 200 mg PO Q4H PRNRF: 0 hydrocortisone 1 % Cream 1 applic TOPICAL BID PRNRF: 0 docusate sodium [Colace] 100 mg Capsule 100 mg PO BID PRNRF: 0 Cough Drops 2.7 mg Lozenge 2.7 mg PO Q4H PRNRF: 0 ondansetron HCl 4 mg tablet 4 mg PO Q8H PRN RF: 0 phenobarbital 64.8 mg tablet 64.8 mg PO BID RF: 0 Discharge Instructions Instructions: Abdominal Pain (ED), Anxiety (ED), Dyspnea (ED) Additional Instructions: Work-up in the ER does not reveal any obvious emergent process. You have told me that your breathing is back to normal and you are requesting discharge back to the care bed. Please have the outpatient abdominal imaging as scheduled tomorrow. Watch for new or worsening symptoms and return to the ER for any concerns. Lastly, I recommend contacting your primary care provider tomorrow to discuss outpatient reevaluation. Medical Decision Making 75-year-old gentleman who is currently residing at the [facility] bed presents to the ER via EMS with multiple complaints. He reports chronic abdominal discomfort, none right now, having outpatient imaging of his abdomen tomorrow. He reports loose stool yesterday, green-mora, darker today. He also reports ongoing anxiety, dry cough, and shortness of breath. Clinically he appears well, nontoxic. He does appear anxious. Lungs are clear to auscultation, O2 sats are 97% on room air. Patient occasionally does change his respiratory pattern and forces and expiratory wheeze otherwise respirations are unremarkable. Denies chest pain, productive cough, leg pain or swelling. Patient does report that he is being discharged from the [facility] bed early next week and this does worsen his anxiety. I do believe that his presentation is at least partly consistent with anxiety. Abdomen is soft, nontender, bowel sounds are normal throughout. Rectal exam is unremarkable, heme-negative stool. Given his age, but it is I will obtain routine laboratory values, chest x-ray, single troponin and EKG. Given extremely low suspicion, lack of physical findings, will not work-up for PE. Will send out Covid test, extremely low suspicion of Covid as well Laboratory values are unremarkable for obvious emergent process. Normal WBC. Minimal anemia, appears to be at baseline. Creatinine 0.8 with a GFR greater than 60. Troponin 0.05. Lipase 212. Urinalysis reveals small leuk esterase, 10-20 white cells. Patient has no suprapubic pain, dysuria, hematuria, frequency. Reviewing his previous culture, mixed ho. No clear indication for acute antibiotic therapy. Will await culture. Chest x-ray read by radiology as no acute thoracic process. Upon reevaluation, patient is resting comfortably. He states my breathing is back to normal and I feel better, and I go back to the care bed tonight?. I discussed benign work-up with patient. He is relieved and has no additional questions or concerns. He will have his outpatient imaging of his abdomen tomorrow. Recommend that he contact his primary care provider for outpatient reevaluation otherwise return to the ER for new or evolving symptoms. Medical Records Medical records reviewed: Yes I reviewed the patient's medical records. Imaging Data Radiologic Study: Attestation: I personally reviewed and interpreted this imaging study as follows: Imaging: X-Ray Radiologist's impression: Chest x-ray negative Lab Data Lab results reviewed: Yes I reviewed the patient's lab results. Labs: 02/13/21 21:54 Urine - Reflex from Ua Urine Culture - Pending Laboratory Tests Range/Units 02/13/21 02/13/21 02/13/21 21:45 21:45 21:45 WBC (4.4-10.8) 10^3/uL 9.56 RBC (4.36-5.78) 10^6/uL 4.07 L Hgb (13.5-17.5) g/dL 12.8 L Hct (40.0-50.0) % 36.5 L MCV (80-95) fL 89.7 MCH (27.0-33.0) pg 31.4 MCHC (32.0-36.0) % 35.1 RDW (11.8-14.1) % 11.5 L Plt Count (130-400) 10^3/uL 342 MPV (8.0-11.0) fL 8.0 Immature Gran % 0.4 Neutrophils % 67.8 Lymphocytes % 19.7 Monocytes % 11.1 Eosinophils % 0.6 Basophils % 0.4 Nucleated RBC % % 0 Absolute Neutrophils (1.2-6.7) 10^3/uL 6.48 Absolute Lymphocytes (1.2-3.4) 10^3/uL 1.88 Absolute Monocytes (0.1-0.8) 10^3/uL 1.06 H Absolute Eosinophils (0.0-0.7) 10^3/uL 0.06 Absolute Basophils (0.0-0.2) 10^3/uL 0.04 PT (9.3-11.0) sec 9.6 INR (0.9-1.1) 1.0 APTT (21.0-27.5) sec 22.4 Sodium (136-145) mmol/L 135 L Potassium (3.5-5.1) mmol/L 3.6 Chloride (98-107) mmol/L 96 L Carbon Dioxide (21.0-32.0) mmol/L 29.6 Anion Gap (3-11) mmol/L 9.4 BUN (7-18) mg/dL 11 Creatinine (0.70-1.30) mg/dL 0.8 Estimated GFR/1.73 m2 (mL/min/1.73m2) >= 60.00 Glucose (74-106) mg/dL 104 Calcium (8.5-10.1) mg/dL 9.1 Total Bilirubin (0.2-1.0) mg/dL 0.3 AST (15-37) U/L 14 L ALT (16-63) U/L 34 Alkaline Phosphatase (46-116) U/L 130 H Troponin I (<0.06) ng/mL Total Protein (6.4-8.2) g/dL 7.2 Albumin (3.4-5.0) g/dL 3.6 Lipase (73-393) U/L 212 Urine Color (Yellow) Urine Clarity (Clear) Urine pH (5-8) Ur Specific [place] (1.005-1.025) Urine Protein (Negative) mg/dL Urine Ketones (Negative) mg/dL Urine Blood (Negative) Urine Nitrite (Negative) Urine Bilirubin (Negative) Urine Urobilinogen (Up TO 0.2) EU/dL Ur Leukocyte Esterase (Negative) Urine RBC (0-2) HPF Urine WBC (0-5) HPF Ur Epithelial Cells (Negative) HPF Urine Crystals (Negative) HPF Urine Bacteria (Negative) HPF Urine Casts (Negative) LPF Urine Mucus (Negative) Ur Culture Indicated? Urine Glucose (Negative) mg/dL Range/Units 02/13/21 02/13/21 21:45 21:54 WBC (4.4-10.8) 10^3/uL RBC (4.36-5.78) 10^6/uL Hgb (13.5-17.5) g/dL Hct (40.0-50.0) % MCV (80-95) fL MCH (27.0-33.0) pg MCHC (32.0-36.0) % RDW (11.8-14.1) % Plt Count (130-400) 10^3/uL MPV (8.0-11.0) fL Immature Gran % Neutrophils % Lymphocytes % Monocytes % Eosinophils % Basophils % Nucleated RBC % % Absolute Neutrophils (1.2-6.7) 10^3/uL Absolute Lymphocytes (1.2-3.4) 10^3/uL Absolute Monocytes (0.1-0.8) 10^3/uL Absolute Eosinophils (0.0-0.7) 10^3/uL Absolute Basophils (0.0-0.2) 10^3/uL PT (9.3-11.0) sec INR (0.9-1.1) APTT (21.0-27.5) sec Sodium (136-145) mmol/L Potassium (3.5-5.1) mmol/L Chloride (98-107) mmol/L Carbon Dioxide (21.0-32.0) mmol/L Anion Gap (3-11) mmol/L BUN (7-18) mg/dL Creatinine (0.70-1.30) mg/dL Estimated GFR/1.73 m2 (mL/min/1.73m2) Glucose (74-106) mg/dL Calcium (8.5-10.1) mg/dL Total Bilirubin (0.2-1.0) mg/dL AST (15-37) U/L ALT (16-63) U/L Alkaline Phosphatase (46-116) U/L Troponin I (<0.06) ng/mL 0.05 Total Protein (6.4-8.2) g/dL Albumin (3.4-5.0) g/dL Lipase (73-393) U/L Urine Color (Yellow) Yellow Urine Clarity (Clear) Clear Urine pH (5-8) 7.5 Ur Specific [place] (1.005-1.025) 1.015 Urine Protein (Negative) mg/dL Negative Urine Ketones (Negative) mg/dL Negative Urine Blood (Negative) Negative Urine Nitrite (Negative) Negative Urine Bilirubin (Negative) Negative Urine Urobilinogen (Up TO 0.2) EU/dL 0.2 Ur Leukocyte Esterase (Negative) Small H Urine RBC (0-2) HPF 0-2 Urine WBC (0-5) HPF 10-20 H Ur Epithelial Cells (Negative) HPF Rare Urine Crystals (Negative) HPF Negative Urine Bacteria (Negative) HPF Few Urine Casts (Negative) LPF Negative Urine Mucus (Negative) Negative Ur Culture Indicated? Yes Urine Glucose (Negative) mg/dL Negative ECG Data Attestation: I personally reviewed and interpreted this ECG (s) as follows: Interpretation: Please see official report by Dr. Wheatley. Sinus bradycardia, ventricular rate of 58. Right bundle branch block. No STEMI. HPI General Mode of arrival: EMS . Date/Time Provider Initiated Documentation: 02/13/21 22:06 . Limitations to Documentation: other (Anxious, PMH of cognitive decline and disorganized thinking) . Information obtained by: patient and EMS . HPI Narrative: This is a 75-year-old gentleman who is presenting to the ER via EMS from the mental health care bed. Patient is a rather vague and poor historian. Patient reports multiple complaints. He reports chronic abdominal protrusion and discomfort, this is unchanged from his baseline. He reports loose stool yesterday that was mora- green, today he reports it was dark. Unclear whether it was dark or black. Denies red blood in his stool. He states that he has experienced shortness of breath over the past couple of days with a dry cough. He denies any chest pain, back pain, productive cough, pain or swelling in his legs, fever. Patient has been staying in a care bed for approximately 2-1/2 weeks because he has been suicidal, denies any suicidal ideations now. Plan is to be discharged early next week from the care bed. Past medical history of cognitive decline, anxiety, hypertension, BPH, GERD, headaches, former smoker, barbiturate withdrawal. Patient reports that he is scheduled for outpatient imaging of his abdomen tomorrow for his chronic abdominal pain Related Data Home Medications Medication Instructions Recorded Confirmed doxazosin 8 mg tablet 8 mg PO HS #30 tab-cap 04/18/20 02/13/21 lisinopril 20 mg tablet 20 mg PO BID #180 tab 07/25/20 02/13/21 finasteride 5 mg tablet 5 mg PO DAILY #90 tab-cap 10/03/20 02/13/21 lovastatin 40 mg tablet 40 mg PO QPM #90 tab 11/30/20 02/13/21 omeprazole 40 mg capsule,delayed 40 mg PO DAILY #90 cap 11/30/20 02/13/21 release trazodone 50 mg tablet 50 mg PO QHS PRN #60 tab 01/09/21 02/13/21 acetaminophen 325 mg tablet 650 mg PO Q4H PRN tab 02/04/21 02/13/21 calcium carbonate 300 mg (750 mg) 600 mg PO .q2-4 h PRN tab 02/04/21 02/13/21 chewable tablet escitalopram oxalate 20 mg tablet 20 mg PO DAILY 02/07/21 02/13/21 risperidone 0.5 mg tablet 0.5 mg PO QHS 02/07/21 02/13/21 Cough Drops 2.7 mg PO Q4H PRN 02/13/21 02/13/21 docusate sodium [Colace] 100 mg PO BID PRN 02/13/21 02/13/21 guaifenesin [Tussin] 200 mg PO Q4H PRN 02/13/21 02/13/21 hydrocortisone 1 applic TOPICAL BID PRN 02/13/21 02/13/21 ondansetron HCl 4 mg PO Q8H PRN 02/13/21 02/13/21 phenobarbital 64.8 mg PO BID 02/13/21 02/13/21 Previous Rx's Medication Instructions Recorded lisinopril 20 mg tablet 20 mg PO BID #180 tab 07/25/20 finasteride 5 mg tablet 5 mg PO DAILY #90 tab-cap 10/03/20 lovastatin 40 mg tablet 40 mg PO QPM #90 tab 11/30/20 omeprazole 40 mg capsule,delayed 40 mg PO DAILY #90 cap 11/30/20 release trazodone 50 mg tablet 50 mg PO QHS PRN #60 tab 01/09/21 Allergies Allergy/AdvReac Type Severity Reaction Status Date / Time pravastatin AdvReac Intermediate Nausea Verified 02/13/21 21:44 ibuprofen AdvReac Mild Contraindic Verified 02/13/21 21:44 ated General JONATHAN: 2 Review of Systems Constitutional Constitutional: Denies fatigue, Denies fever(s) and Denies headache(s) Eyes Eyes: Denies change in vision ENT Ears, Nose, Mouth, and Throat: Denies headache(s), Denies sore throat and Denies throat swelling Cardiovascular Cardiovascular: Denies chest pain and Reports dyspnea Respiratory Respiratory: Reports cough and Reports dyspnea Gastrointestinal Gastrointestinal: Reports abdominal pain (Chronic), Denies hematochezia, Denies nausea and Denies vomiting Genitourinary Genitourinary: Denies dysuria Musculoskeletal Musculoskeletal: Denies back pain, Denies numbness and Denies tingling Integumentary/Breasts Skin/Breast: Denies rash Neurologic Neurologic: Denies headache(s), Denies numbness and Denies tingling Psychiatric Psychiatric: Reports anxiety and Denies suicidal ideation Endocrine Endocrine: Denies fatigue Allergic/Immunologic Allergic/Immunologic: Denies throat swelling REPLACED BY [facility] Medical History Abdominal wall mass of periumbilical region Barbiturate abuse Fioricet for decades; Phenobarb to manage withdrawal and maint Benign neoplasm of colon Hyperplastic 2010, repeat 2020 Benign prostatic hyperplasia (04/13/13) elevated PSA; S/P BX 2002 Disorganized thinking RX Risperidone Erectile dysfunction Gastroesophageal reflux disease Generalized osteoarthrosis Hammer toe of right foot Hard of hearing Hearing aids Headache chronic fioricet use; discont 09/2020 with phenobarb Hiatal hernia Hyperlipidemia Hypertensive disorder Injury of head (10/23/1951) coma x 7 days Nasal polyp polypectomy x 2 Prostatitis (01/03/13) Smoker former pipe Spinal stenosis C-spine Stress at home Trigger finger, right repaired by Dr Palacios Surgical History Hx of cholecystectomy (~05/2015) S/P rotator cuff repair Family History Sister Colon cancer Rheumatoid arthritis Father Heart disease Social History Smoking/Tobacco Use Status: Former Tobacco Use Quit Date: 11/23/10 Tobacco: How many years used: 25 Smoking risk assessment performed?: Yes Alcohol Intake: never Drug use: Never Substance use type: does not use Adopted: No Caregiver/Support person: No Foster care: No Household members: spouse Housing: house Number of Children: 3 Communication Needs: Hard of Hearing Do you need help understanding health information?: Never 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 Exam Const General: cooperative, healthy appearing, comfortable, no acute distress and anxious Orientation: alert, awake, oriented to person, oriented to place and confused (Does not know exactly) HENMT Head: normal to inspection, normocephalic and atraumatic Face and sinus: normal facial exam Mouth: moist mucous membranes Throat: posterior oropharynx normal Eyes General: appearance normal, both eyes and all related structures Alignment and Position: alignment normal Periorbital: periorbital findings normal Eyelids: eyelids normal Conjunctivae: conjunctivae normal Sclera: sclerae normal Cornea: corneas normal Pupils: PERRL EOM: EOM intact bilaterally Direct ophthalmoscopy: normal light reflex Neck Neck: normal visual inspection, full ROM, no meningeal signs, trachea midline, supple and nontender Resp Effort & Inspection: normal respiratory effort and able to speak in complete sentences Other: Patient has normal respiratory effort. He is able to speak in full sentences. O2 sat is between 97 and 100% on room air. Lungs are clear to auscultation bilaterally. Patient becomes anxious and appears to change his breathing pattern, force himself to have an expiratory wheeze. I do hear that, there it is. As we proceed with the physical examination, patient is easily distracted and that breathing pattern is discontinued. There is no expiratory wheezing whatsoever. Lungs are once again clear to auscultation. Cardio Rate: regular rate Rhythm: regular rhythm GI Palpation: soft, not firm, no guarding and nontender Auscultation: normal bowel sounds Rectal Exam: visual inspection normal, normal sphincter tone and heme negative stool Back/Spine/Pelvis Back: no CVA tenderness and No back tenderness Skin General skin exam: no rashes or lesions noted Neuro General: patient alert, patient awake, moves all extremities and no focal motor deficits Cranial Nerves: CN's II-XI intact bilaterally Cognition: normal cognition Speech: speech normal Gait: normal gait Motor: muscle tone normal throughout and strength 5/5 throughout Sensory Exam: no sensory deficits noted Extrem General: normal to inspection, full ROM, capillary refill normal, no pedal edema and no calf tenderness Psych Appearance: grossly normal Mental Status: mental status grossly normal Speech and Movement: speech and movement normal Mood: anxious mood Affect: anxious affect Attitude: cooperative Thought Process: normal Thought Content: suicidality Insight: limited Judgment: limited
--- NOTE | 2021-02-13 21:45 | DI.RAD_ITS ---
EXAM: XR PORTABLE CHEST AP CLINICAL HISTORY: short of breath. TECHNIQUE: 2D digital imaging was performed. COMPARISON: CR CHEST 2 VIEWS PA,LAT from 01/31/2013 FINDINGS: Heart size is upper normal. The mediastinum is not widened. Lungs are clear. No infiltrates nor obvious pleural effusions. IMPRESSION: No acute pulmonary findings on this single AP portable view of the chest. DATA REPOSITORY: RADIATION DOSE DELIVERED: All CT scans at this facility use at least one of these dose optimization techniques: automated exposure control; mA and/or kV adjustment per patient size (includes targeted e xams where dose is matched to clinical indication); or iterative reconstruction.
--- NOTE | 2021-02-13 22:00 | RT.EKG_ITS ---
APPROVED REPORT Exam: Resting ECG Patient Location: E HR:58 bpm ECG Measurements Heart Rate 58 AXIS IN 180 P 72 QRSd 150 QRS 11 QT 447 T 29 QTc 438 Conclusion Sinus bradycardia...rate< 60 Right bundle branch block...QRSd>120, terminal axis(90,270)
[2021-02-13 22:01] LABS: Abs Immature Grans 0.04 10^3/uL (0.0-0.06); Absolute Basophil Count 0.04 10^3/uL (0.0-0.2); Absolute Eosinophil Count 0.06 10^3/uL (0.0-0.7); Absolute Lymphocyte Count 1.88 10^3/uL (1.2-3.4); Absolute Monocyte Count 1.06 10^3/uL (0.1-0.8); Absolute Neutrophil Count 6.48 10^3/uL (1.2-6.7); Basophils % 0.4; Eosinophils % 0.6; HCT 36.5 % (40.0-50.0); HGB 12.8 g/dL (13.5-17.5); Immature Grans % 0.4; Lymphocytes % 19.7; MCH 31.4 pg (27.0-33.0); MCHC 35.1 % (32.0-36.0); MCV 89.7 fL (80-95); Monocytes % 11.1; Neutrophils % 67.8; Nucleated RBC 0 %; Platelet Count 342 10^3/uL (130-400); RBC 4.07 10^6/uL (4.36-5.78); RDW 11.5 % (11.8-14.1); RDW-SD 37.6 fL; WBC 9.56 10^3/uL (4.4-10.8)
[2021-02-13 22:02] LABS: Bilirubin Negative (Negative); Blood Negative (Negative); Clarity Clear (Clear); Glucose Negative (Negative); Ketones Negative (Negative); Leukocyte Esterase Small (Negative); Nitrite Negative (Negative); Specific Gravity 1.015 (1.005-1.025); Urobilinogen 0.2 EU/dL (Up TO 0.2); pH 7.5 (5-8)
[2021-02-13 22:14] LABS: Bacteria Few HPF (Negative); C & S Indicated? Yes; Casts Negative LPF (Negative); Crystals Negative HPF (Negative); Epithelial Cells Rare HPF (Negative); Mucus Negative (Negative); RBC 0-2 HPF (0-2)
[2021-02-13 22:15] LABS: ALT 34 U/L (16-63); AST 14 U/L (15-37); Albumin 3.6 g/dL (3.4-5.0); Alkaline Phosphatase 130 U/L (46-116); Anion Gap 9.4 mmol/L (3-11); BUN 11 mg/dL (7-18); Bilirubin, Total 0.3 mg/dL (0.2-1.0); CO2 29.6 mmol/L (21.0-32.0); CREATININE 0.8 mg/dL (0.70-1.30); Calcium 9.1 mg/dL (8.5-10.1); Chloride 96 mmol/L (98-107); Glucose 104 mg/dL (74-106); Lipase 212 U/L (73-393); Potassium 3.6 mmol/L (3.5-5.1); Sodium 135 mmol/L (136-145); Total Protein 7.2 g/dL (6.4-8.2)
[2021-02-13 22:16] LABS: PTT Activated 22.4 sec (21.0-27.5); Prothrombin Time 9.6 sec (9.3-11.0)
[2021-02-13 22:43] LABS: Troponin I 0.05 ng/mL (<0.06)
--- NOTE | 2021-02-13 22:45 | DI.VRAD_ITS ---
PROCEDURE INFORMATION: Exam: XR Chest Exam date and time: 02/13/2021 10:21 PM Age: 75 years old Clinical indication: Shortness of breath TECHNIQUE: Imaging protocol: XR of the chest Views: 1 view. Total images: 1 COMPARISON: No relevant prior studies available. FINDINGS: Lungs: Normal pulmonary expansion. Pulmonary vasculature grossly normal. No gross pulmonary infiltrates. Pleural spaces: No pleural effusion. No pneumothorax. Heart/Mediastinum: Heart size normal. No tracheal/mediastinal shift. Vasculature: Moderate aortic tortuosity with mild calcific atherosclerosis. Bones/joints: Chronic postoperative changes in the left shoulder. No acute osseous abnormalities are identified. IMPRESSION: No acute thoracic process. Dictated and Authenticated by: Rajat Evans MD. Ordering:GERARDO Cabral MD
--- NOTE | 2021-02-13 23:17 | NUR.NOTE ---
Nursing Note: Pt placed on care management follow up who will arrange outpatient COVID-19 swab appointment. COVID-19 swab was not done in ER today, 02/13/2021.
--- NOTE | 2021-02-14 05:50 | NUR.NOTE ---
Nursing Note: referral faxed to care managment for a covid test 02/14/2021 @ 0551 Libl
== END 2021-02-13 23:17 | disposition other institution (70) ==
PROVIDERS: Emergency Provider Physician Assistant; PCP Nurse Practitioner Adult Health
DX: F41.8 Other specified anxiety disorders (principal); R41.81 Age-related cognitive decline; R10.9 Unspecified abdominal pain; G89.29 Other chronic pain; R06.02 Shortness of breath
CPT/HCPCS: 36415; 80053; 83690; 93005; 99285; 71045; 81003; 81015; 84484; 85025; 85610; 85730; 87086; 93010

== ENCOUNTER 2021-02-15 10:30 | Day surgery (SDC) | payer MEDICARE, SELFPAY ==
[2021-02-15] MEDS: Tropicam./Phenyleph. (1/2.5%) 5 ML BTL OS ×3 (11:06→11:20)
[2021-02-15 11:14] VITALS: BP 159/77; PULSE 60; RESP 18; TEMP 36.5; O2SAT 98
[2021-02-15] MEDS: Tetracaine 0.5% 4 ML BTL OS (12:13)
[2021-02-15] MEDS: Balanced Salt Soln.-PLUS 500 ML BAG (12:14)
[2021-02-15] MEDS: Lidocaine 1% Pres-Free 5 ML VIAL (12:14)
[2021-02-15] MEDS: Duovisc Viscoelastic System EACH 1 EACH (12:14)
[2021-02-15] MEDS: Lidocaine 2% Jelly 6 ML SYR (12:15)
[2021-02-15] MEDS: Povidone-Iodine Ophth 30 ML BTL (12:16)
--- NOTE | 2021-02-15 12:52 | W.PM.DSUDISC ---
Discharge Plan Disposition Patient Disposition: HOME Condition: Good Discharge Details Attending Provider: Neville Cali Primary Care Provider: Haritha Cortez Home Meds and New Rx's Prescriptions: No Action escitalopram oxalate 20 mg tablet 20 mg PO DAILY RF: 0 risperidone 0.5 mg tablet 0.5 mg PO QHS RF: 0 lisinopril 20 mg tablet 20 mg PO BID Qty: 180 RF: 3 finasteride 5 mg tablet 5 mg PO DAILY Qty: 90 RF: 3 acetaminophen 325 mg tablet 650 mg PO Q4H PRNRF: 0 calcium carbonate [Tums E-X] 300 mg (750 mg) tablet,chewable 600 mg PO .q2-4 h PRNRF: 0 doxazosin 8 mg tablet 8 mg PO HS Qty: 30 RF: 6 lovastatin 40 mg tablet 40 mg PO QPM Qty: 90 RF: 3 omeprazole 40 mg capsule,delayed release(DR/EC) 40 mg PO DAILY Qty: 90 RF: 3 trazodone 50 mg tablet 50 mg PO QHS PRN (Reason: sleep) Qty: 60 RF: 3 guaifenesin [Tussin] 100 mg/5 mL Liquid 200 mg PO Q4H PRNRF: 0 hydrocortisone 1 % Cream 1 applic TOPICAL BID PRNRF: 0 docusate sodium [Colace] 100 mg Capsule 100 mg PO BID PRNRF: 0 Cough Drops 2.7 mg Lozenge 2.7 mg PO Q4H PRNRF: 0 ondansetron HCl 4 mg tablet 4 mg PO Q8H PRN RF: 0 phenobarbital 64.8 mg tablet 64.8 mg PO BID RF: 0 Discharge Instructions Stand Alone Forms: Post-op Topical Cataract, Press Ganey (DSU) Discharge Orders Discharge Orders: Discharge Order (Routine); Ordered 02/15/21 Ordered By: Neville Cali DS: Diagnosis Discharge Diagnosis (1) Cortical cataract of left eye: Status: Resolved (2) Nuclear sclerotic cataract of left eye: Status: Resolved
--- NOTE | 2021-02-15 12:53 | ROE_ITS ---
Date of service: 02/15/21 Time of Service: 12:53 Operative Note Operative Note DATE OF PROCEDURE: 02/15/21 PRE-OP DIAGNOSIS: Nuclear/cortical cataract, left eye POST-OP DIAGNOSIS: same PROCEDURE: Cataract extraction using phacoemulsification with intraocular lens implant, left eye SURGEON: Neville Cali ANESTHESIA TYPE: Local By Surgeon and MAC Refer to Anesthesia Record PATHOLOGY: none sent COMPLICATIONS: None Patient was transported to: same day Patient's condition: stable Implants: Negrito [employer] / [employer] Tecnis ZCB00 Indications: Progressive decreased vision due to cataract, left eye Procedure Description: CATARACT SURGERY OPERATIVE REPORT PREOPERATIVE DIAGNOSIS: [] POSTOPERATIVE DIAGNOSIS: Same OPERATION: Cataract extraction using phacoemulsification with posterior chamber intraocular lens implant, left eye. IOL: IOL Iso Coordinator/Model: J[employer]J Vision / HUGH Tecnis ZCB00 IOL Power: + 25.0 diopters IOL Serial Number: [id number] Optic Diameter: 6.0mm Haptic/Overall Diameter: 13.0mm PHACO INFO: Gene HT[employer]ion Vision System with OZil and Active Fluidics Cumulative Dispersed Energy (CDE): 18.93 seconds SURGEON: Neville Cali MD, JENNIFER ANESTHESIA: Monitored Anesthesia Care (MAC), with local sub-tenon's anesthetic infiltration COMPLICATIONS: None SPECIMENS: None INDICATIONS FOR PROCEDURE: Patient is a 75-year-old gentleman with history of diminished visual acuity in both eyes secondary to the development of bilateral nuclear and cortical cataract. He is significantly symptomatic that he desires cataract surgery and attempt to improve and maximize his vision. PROCEDURE: The correct surgical eye was identified and marked as the left eye and the pupil was dilated in the preoperative area using mydriatics and cycloplegics. The dilated pupil size was 6.0 mm. Oral sedation was administered in the form of an Imprimis MKO Melt (midazolam 3mg/ketamine 25mg/ondansetron 2mg). The patient was brought to the operating room where cardiopulmonary monitoring was instituted and surgical time-out was performed, confirming the correct operative eye and IOL power. Topical anesthesia was administered and ophthalmic povidone-iodine 5% was instilled into the conjunctival fornices. Lidocaine gel was applied to the cornea and the domo-ocular area was prepped with Betadine 10% solution and draped in the usual sterile fashion for intraocular surgery, including an aperture drape. A Tegaderm transparent film dressing was cut in half and used to cover the lashes and lid margins. Care was taken to sequester the lashes and lid margins under the Tegaderm dressing. A lid speculum was placed between the lids of the operative eye and the Jovani-Yoel operating microscope was maneuvered into position. Neal scissors were then used to make a conjunctival buttonhole approximately 6mm posterior to the limbus in the inferonasal quadrant. Blunt dissection was carried out to expose bare sclera, and a blunt-tipped sub-tenon?s anesthesia cannula was introduced and passed posteriorly along the globe where non- preserved plain lidocaine was injected into posterior sub-Tenon?s space. A sideport knife was used to make a paracentesis port superior/superiortemporally. Intraocular phenylephrine/lidocaine was injected into the anterior chamber. The anterior chamber was then filled with viscoelastic. A 2.4mm keratome knife was used to create a half-thickness groove at the limbus and then to construct a three-plane near-clear corneal tunnel extending 2.0mm into clear cornea in the temporal position. . A flap was raised on the anterior capsule superiorly, using a cystotome. However, the patient had difficulty maintaining fixation, and the flap was inadequate. A second attempt at making a flap inferiorly was successful and capsulorhexis forceps were used to initiate a continuous curvilinear capsulorrhexis at the 6 o'clock position, progressing clockwise. However, at the 4 o'clock position, the patient had sudden eye movement, resulting in premature completion of the capsulorrhexis with a slight capsular tag at the 4 to 5 o'clock position. Capsulorrhexis was approximately 5.5 mm in diameter. Balanced salt solution was then used to perform cortical cleaving hydrodissection and nuclear hydrodelineation until the lens could be freely rotated within the capsular bag. The lens nucleus was then disassembled and removed within the capsular bag and iris plane using phacoemulsification. Residual cortical material was removed using the 45-degree angled silicone I/A tip with 0.3mm port. The posterior capsule was carefully polished to remove as m uch residual lens epithelial cells as safely possible. The capsular bag was then inflated and the anterior chamber deepened with viscoelastic. The lens implant described above was inserted into the capsular bag using the HUGH [place] Injector. A Kuglen hook was used to dial the IOL into position. Residual viscoelastic was then removed first from posterior to the IOL, then from the anterior chamber using the I/A handpiece. The lens implant was noted to center nicely within the capsular bag. The incisions were stromally hydrated, and the anterior chamber was reformed using BSS. Then 0.5cc of moxifloxacin 1.0mg/ml were injected into the capsular bag and anterior chamber. The incisions were checked with a Weck spear and found to be secure. Several drops of ophthalmic povidone-iodine 5% were then applied to the eye followed by two drops of Imprimis combination prednisolone/moxifloxacin/nepafenac solution. The drapes were removed and a clear plastic protective eye shield was placed over the eye. The patient was then returned to Same Day Surgery in stable condition.
[2021-02-15 13:15] VITALS: BP 137/70; PULSE 76; RESP 16; TEMP 37.4; O2SAT 96
== END 2021-02-15 13:30 | disposition home or self-care (01) ==
PROVIDERS: PCP Nurse Practitioner Adult Health; Visit Provider Ophthalmology
PROC: (CPT 66984; principal; 2021-02-15 13:30)
DX: H25.012 Cortical age-related cataract, left eye (principal); H25.12 Age-related nuclear cataract, left eye
CPT/HCPCS: 66984; V2632

== ENCOUNTER 2021-03-01 06:15 | Day surgery (SDC) | payer MEDICARE, SELFPAY ==
[2021-03-01 06:39] VITALS: BP 152/72; PULSE 77; RESP 16; TEMP 36.7; O2SAT 98
[2021-03-01] MEDS: Tropicam./Phenyleph. (1/2.5%) 5 ML BTL OD ×3 (06:54→07:07)
[2021-03-01] MEDS: Lidocaine 1% Pres-Free 5 ML VIAL (07:32)
[2021-03-01] MEDS: Balanced Salt Soln.-PLUS 500 ML BAG (07:34)
[2021-03-01] MEDS: Lidocaine 2% Jelly 6 ML SYR (07:35)
[2021-03-01] MEDS: Povidone-Iodine Ophth 30 ML BTL (07:35)
[2021-03-01] MEDS: Duovisc Viscoelastic System EACH 1 EACH (07:36)
[2021-03-01] MEDS: Tetracaine 0.5% 4 ML BTL OD (07:37)
--- NOTE | 2021-03-01 08:01 | W.PM.DSUDISC ---
Discharge Plan Disposition Patient Disposition: HOME Condition: Good Discharge Details Attending Provider: Neville Cali Primary Care Provider: Haritha Cortez Home Meds and New Rx's Prescriptions: No Action escitalopram oxalate 20 mg tablet 20 mg PO DAILY RF: 0 risperidone 0.5 mg tablet 0.5 mg PO QHS RF: 0 lisinopril 20 mg tablet 20 mg PO BID Qty: 180 RF: 3 finasteride 5 mg tablet 5 mg PO DAILY Qty: 90 RF: 3 acetaminophen 325 mg tablet 650 mg PO Q4H PRNRF: 0 calcium carbonate [Tums E-X] 300 mg (750 mg) tablet,chewable 600 mg PO .q2-4 h PRNRF: 0 doxazosin 8 mg tablet 8 mg PO HS Qty: 30 RF: 6 lovastatin 40 mg tablet 40 mg PO QPM Qty: 90 RF: 3 omeprazole 40 mg capsule,delayed release(DR/EC) 40 mg PO DAILY Qty: 90 RF: 3 trazodone 50 mg tablet 50 mg PO QHS PRN (Reason: sleep) Qty: 60 RF: 3 guaifenesin [Tussin] 100 mg/5 mL Liquid 200 mg PO Q4H PRNRF: 0 hydrocortisone 1 % Cream 1 applic TOPICAL BID PRNRF: 0 docusate sodium [Colace] 100 mg Capsule 100 mg PO BID PRNRF: 0 Cough Drops 2.7 mg Lozenge 2.7 mg PO Q4H PRNRF: 0 ondansetron HCl 4 mg tablet 4 mg PO Q8H PRN RF: 0 phenobarbital 64.8 mg tablet 64.8 mg PO BID RF: 0 Discharge Instructions Stand Alone Forms: Post-op Topical Cataract, Press Ganey (DSU) Discharge Orders Discharge Orders: Discharge Order (Routine); Ordered 03/01/21 Ordered By: Neville Cali DS: Diagnosis Discharge Diagnosis (1) Cortical cataract of right eye: Status: Resolved (2) Nuclear sclerotic cataract of right eye: Status: Resolved
--- NOTE | 2021-03-01 08:01 | W.PM.OP ---
Date of service: 03/01/21 Time of Service: 08:02 Operative Note Operative Note DATE OF PROCEDURE: 03/01/21 PRE-OP DIAGNOSIS: Nuclear/cortical cataract, right eye POST-OP DIAGNOSIS: same PROCEDURE: Cataract extraction using phacoemulsification with intraocular lens implant, right eye SURGEON: Neville Cali ANESTHESIA TYPE: Local By Surgeon and MAC Refer to Anesthesia Record ESTIMATED BLOOD LOSS: 0 PATHOLOGY: none sent COMPLICATIONS: None Patient was transported to: same day Patient's condition: stable Implants: Negrito and [employer] / [employer] Tecnis ZCB00 intraocular lens Indications: Progressive decreased vision due to cataract, right eye Procedure Description: CATARACT SURGERY OPERATIVE REPORT PREOPERATIVE DIAGNOSIS: Nuclear/cortical cataract, right eye POSTOPERATIVE DIAGNOSIS: Same OPERATION: Cataract extraction using phacoemulsification with posterior chamber intraocular lens implant, right eye. IOL: IOL Pipe Fitter Marine/Model: J&J Vision / HUGH Tecnis ZCB00 IOL Power: + +25.0 diopters IOL Serial Number: [id number] Optic Diameter: 6.0mm Haptic/Overall Diameter: 13.0mm PHACO INFO: Gene [place] [employer] Vision System with OZil and Active Fluidics Cumulative Dispersed Energy (CDE): 9.46 seconds SURGEON: Neville Cali MD, JENNIFER ANESTHESIA: Monitored Anesthesia Care (MAC), with local sub-tenon's anesthetic infiltration COMPLICATIONS: None SPECIMENS: None INDICATIONS FOR PROCEDURE: The patient is a 76-year-old gentleman with history of diminished visual acuity in his right eyes secondary to the development of nuclear and cortical cataract. He has already undergone cataract surgery in the left eye and is doing well postoperatively. He now presents for cataract surgery in the right eye. PROCEDURE: The correct surgical eye was identified and marked as the right eye and the pupil was dilated in the preoperative area using mydriatics and cycloplegics. The dilated pupil size was 6.5 mm. Oral sedation was administered in the form of an Imprimis MKO Melt (midazolam 3mg/ketamine 25mg/ondansetron 2mg). The patient was brought to the operating room where cardiopulmonary monitoring was instituted and surgical time-out was performed, confirming the correct operative eye and IOL power. Topical anesthesia was administered and ophthalmic povidone-iodine 5% was instilled into the conjunctival fornices. Lidocaine gel was applied to the cornea and the domo-ocular area was prepped with Betadine 10% solution and draped in the usual sterile fashion for intraocular surgery, including an aperture drape. A Tegaderm transparent film dressing was cut in half and used to cover the lashes and lid margins. Care was taken to sequester the lashes and lid margins under the Tegaderm dressing. A lid speculum was placed between the lids of the operative eye and the Jovani-Yoel operating microscope was maneuvered into position. Neal scissors were then used to make a conjunctival buttonhole approximately 6mm posterior to the limbus in the inferonasal quadrant. Blunt dissection was carried out to expose bare sclera, and a blunt-tipped sub-tenon?s anesthesia cannula was introduced and passed posteriorly along the globe where non-preserved plain lidocaine was injected into posterior sub-Tenon?s space. A sideport knife was used to make a paracentesis port inferiortemporally. Intraocular phenylephrine/lidocaine was injected into the anterior chamber. The anterior chamber was then filled with viscoelastic. A 2.4mm keratome knife was used to create a half-thickness groove at the limbus and then to construct a three-plane near-clear corneal tunnel extending 2.0mm into clear cornea in the superiortemporal position. . A flap was raised on the anterior capsule and capsulorhexis forceps were used to complete a continuous curvilinear capsulorhexis of 5.5 mm. Capsulorhexis was challenging due to patient movement. Balanced salt solution was then used to perform cortical cleaving hydrodissection and nuclear hydrodelineation until the lens could be freely rotated within the capsular bag. The lens nucleus was then disassembled and removed within the capsular bag and iris plane using phacoemulsification. Residual cortical material was removed using the I/A handpiece. The posterior capsule was carefully polished to remove as much residual lens epithelial cells as safely possible. There was some residual posterior subcapsular plaque temporally which could not be safely removed due to patient movement. The capsular bag was then inflated and the anterior chamber deepened with viscoelastic. The lens implant described above was inserted into the capsular bag using the HUGH [place] Injector. A Kuglen hook was used to dial the IOL into position. Residual viscoelastic was then removed first from posterior to the IOL, then from the anterior chamber using the I/A handpiece. The lens implant was noted to center nicely within the capsular bag. The incisions were stromally hydrated, and the anterior chamber was reformed using BSS. Then 0.5cc of moxifloxacin 1.0mg/ml were injected into the capsular bag and anterior chamber. The incisions were checked with a Weck spear and found to be secure. Several drops of ophthalmic povidone-iodine 5% were then applied to the eye followed by two drops of Imprimis combination prednisolone/moxifloxacin/nepafenac solution. The drapes were removed and a clear plastic protective eye shield was placed over the eye. The patient was then returned to Same Day Surgery in stable condition.
[2021-03-01 08:26] VITALS: BP 157/78; PULSE 72; RESP 16; TEMP 36.4; O2SAT 97
== END 2021-03-01 08:27 | disposition home or self-care (01) ==
PROVIDERS: PCP Nurse Practitioner Adult Health; Visit Provider Ophthalmology
PROC: (CPT 66984; principal; 2021-03-01 07:30)
DX: H25.11 Age-related nuclear cataract, right eye (principal); H25.011 Cortical age-related cataract, right eye; Z96.1 Presence of intraocular lens; Z98.42 Cataract extraction status, left eye; I10 Essential (primary) hypertension; K21.9 Gastro-esophageal reflux disease without esophagitis
CPT/HCPCS: 66984; V2632

== ENCOUNTER → 2021-03-19 13:45 | Outpatient (BNVA) | payer MEDICARE, SELFPAY | PROVIDERS: PCP Nurse Practitioner Adult Health; Referring Provider Nurse Practitioner Adult Health; Visit Provider Surgery | DX: R93.3 Abnormal findings on diagnostic imaging of other parts of digestive tract (principal); F41.9 Anxiety disorder, unspecified; Z63.6 Dependent relative needing care at home | CPT/HCPCS: 99213; 99215 ==

== ENCOUNTER → 2021-03-25 10:39 | Outpatient (BNVA) | payer MEDICARE, SELFPAY | PROVIDERS: PCP Nurse Practitioner Adult Health; Referring Provider Nurse Practitioner Adult Health; Visit Provider Nurse Practitioner Gerontology | DX: R31.29 Other microscopic hematuria (principal); N40.0 Benign prostatic hyperplasia without lower urinary tract symptoms; I10 Essential (primary) hypertension | CPT/HCPCS: 99215 ==

== ENCOUNTER → 2021-04-01 14:46 | Outpatient (BNVA) | payer MEDICARE, SELFPAY | PROVIDERS: PCP Nurse Practitioner Adult Health; Referring Provider Nurse Practitioner Adult Health; Visit Provider Psychiatry & Neurology Neurology | DX: G93.40 Encephalopathy, unspecified (principal); F13.10 Sedative, hypnotic or anxiolytic abuse, uncomplicated; F41.9 Anxiety disorder, unspecified; F51.05 Insomnia due to other mental disorder; F99 Mental disorder, not otherwise specified; R41.89 Other symptoms and signs involving cognitive functions and awareness | CPT/HCPCS: 99215 ==

== ENCOUNTER 2021-04-11 02:32 | Outpatient (CLI) | payer MEDICARE, SELFPAY ==
--- NOTE | 2021-04-11 06:54 | DI.MRI_ITS ---
Exam(s) MR ABDOMEN WO/W EXAM: MR ABDOMEN WO/W CLINICAL HISTORY: Abd wall mass, abnormal CT,r93.5,r19.05 TECHNIQUE: Multiplanar multisequence MRI was performed with both pre and post contrast infused seque nces. Also performed MRCP Contrast injected sequences were performed following IV injection of 14 cc of Dotarem. COMPARISON: CT scan 02/14/2021 reviewed FINDINGS: VISUALIZED LUNG BASES: No pleural effusions evident. There is no ascites evident. LIVER: Liver size is normal. There no discrete focal hepatic lesions identified. BILIARY: The gallbladder surgically absent. The CBD is not dilated.. There also no obvious calculi in the CBD. No obvious mass in this region nor obvious adenopathy. PANCREAS: No focal pancreatic mass identified.Pancreatic duct diameter is upper normal. There are no cystic pancreatic masses. No peripancreatic fluid collection. There is also no evidence of obvious mass at the junction of the CBD and duodenal wall, as suspected from the recent CT scan. SPLEEN: Spleen is not enlarged and there are no intrasplenic lesions.Splenic and portal veins are pat ent ADRENALS: There are no significant adrenal masses. KIDNEYS: No solid renal masses. No hydronephrosis.No cysts evident. ABDOMINAL AORTA: Not enlarged and there is no significant para-aortic adenopathy. ANTERIOR ABDOMINAL WALL/GI: There is no evidence of significant anterior abdominal wall hernia in the field of view of this study.Is no evidence of obvious bowel obstruction. OSSEOUS: There are no lytic osseous lesions in the field of view of this study. There is degenerative scoliosis lumbar spine having epicenter at L2-3 level. Modic type 1 sub endpla te marrow edema changes noted at L1-2 and L2-3 levels. IMPRESSION: 1. The gallbladder surgically absent. The biliary tree is not dilated. 2. There is no obvious mass at the level the lower CBD-duodenal wall/pancreatic region (see recent CT scan report). Is no regional lymphadenopathy. 3. No focal hepatic lesions nor significant focal lesions in the pancreas. DATA REPOSITORY:
[2021-04-11] MEDS: Gadoterate meglumine 20 ML VIAL 14 ML IVP (08:46)
== END 2021-04-11 02:52 ==
PROVIDERS: PCP Nurse Practitioner Adult Health; Visit Provider Surgery
DX: R19.05 Periumbilic swelling, mass or lump (principal); R93.5 Abnormal findings on diagnostic imaging of other abdominal regions, including retroperitoneum
CPT/HCPCS: 74183

== ENCOUNTER 2021-05-13 02:35 | Outpatient (CLI) | payer MEDICARE, SELFPAY ==
[2021-05-13 12:01] LABS: Source Nasal/Nares
[2021-05-13 14:48] LABS: COVID-19 PCR Negative (Negative)
== END 2021-05-13 02:36 | disposition home or self-care (01) ==
PROVIDERS: PCP Nurse Practitioner Adult Health; Visit Provider Surgery
DX: Z20.822 Contact with and (suspected) exposure to COVID-19 (principal); Z01.818 Encounter for other preprocedural examination
CPT/HCPCS: 87635

== ENCOUNTER 2021-05-15 08:09 | Day surgery (SDC) | payer MEDICARE, SELFPAY ==
--- NOTE | 2021-05-15 06:30 | HPE_ITS ---
Date of service: 05/15/21 Time of Service: 09:02 Assessment and Plan Assessment and plan (1) Abnormal CT of the abdomen: Status: Acute Assessment and plan: Mr. Najera is a pleasant 76-year-old gen tleman who is quite anxious about life at this point. He has a lot of stressors due to his having dementia. He does not have reliable transportation. He is here today because of a abdominal wall mass felt by the primary care physician. CT scan was done which showed a focal thickening of the medial duodenal wall right at the entrance of the common bile duct. There is also a calcification in the head of the pancreas. The radiologist recommended EGD/ERCP. I discussed with the patient that unfortunately we do not do ERCPs here and that I do not feel that an EGD alone would be enough to really figure out what is going on with him. He has had some weight loss and on exam today he is slightly tender just to the right of the umbilicus in potentially I can feel a mass deep in the abdomen. My recommendation at this time is to proceed first with an MRCP. We will get this approved by his insurance and then we will set it up. Depending on what this shows we may be able to just do an EGD here. If it does look like there is something going on with his pancreas then he will definitely need a referral to gastroenterology either at [facility] or at [facility] [[email or web address] The patient is quite worried about transportation and how he would get to these appointments. Hopefully his primary care physician can try to help with this if it comes to it. MRCP didn't show a mass. We will proceed with EGD Risks, benefits and complications have been reviewed with him and he wishes to proceed. History of Present Illness Narrative: Mr. Najear is a pleasant but extremely anxious 76-year-old gentleman who is here today at the request of his primary care's physician to discuss possible upper endoscopy. I did review his CT scan that was done for possible hernia. It does not show a hernia but instead shows a focal thickening over the medial duodenal wall possibly the pancreas with some calcification in the head of the pancreas. His biliary duct is normal in size. His last set of labs were reviewed and his liver function tests are all normal. He does tell me that he has lost some weight slowly. He does not complain of abdominal pain. He does complain that although he is losing weight and his arms and legs are getting thinner his belly seems to protrude more than it did before. There was no ascites noted on his CAT scan. He denies any fevers or chills. He is s/p Cholecystectomy. EXAM: CT ABDOMEN PELVIS W CLINICAL HISTORY: Suspect umb hernia,ABD DISTENSION,R19.05,R14.0,ABD WALL MASS. TECHNIQUE: Imaging Protocol: Axial computed tomography images with coronal and sagittal reformatted images were created and reviewed CONTRAST MATERIAL: Intravenous: Omnipaque 100cc Oral: Yes COMPARISON: No exams were available for comparison FINDINGS: VISUALIZED LUNG BASES: No nodules nor pleural effusions evident. ABDOMEN: There is no ascites. LIVER: There are no obvious focal hepatic lesions evident . GALLBLADDER/BILIARY: The gallbladder surgically absent. CBD is not dilated. PANCREAS: There is a small calcification in the posterior pancreatic head adjacent to the CBD. There is also a focal indentation of the oral contrast column in the duodenum which measures 13 x 8 millimeters (series 4/image 42). This may be a mass. There is no obvious regional adenopathy evident. SPLEEN: Spleen is not enlarged. No obvious intrasplenic lesions. Splenic and portal veins are patent. ADRENALS: There is thickening of both limbs of both adrenal glands consistent with adrenal hyperplasia. KIDNEYS:No cysts evident. No solid renal masses. No calculi nor hydronephrosis.. ABDOMINAL AORTA: The abdominal aorta is calcified-atherosclerotic as are the common iliac arteries. There is calcified mural thrombus in the anterior wall of the aorta infrarenal aspect but maximum diameter is only 2.4 cm. LYMPH NODES:There is no retroperitineal nor paraaortic adenopathy. ABDOMINAL WALL/GI: No evidence of significant anterior abdominal wall hernia. No bowel obstruction. PELVIS: GI: No evidence of appendicitis.No evidence of sigmoid diverticulitis. LYMPH NODES: There is no intrapelvic nor inguinal adenopathy. REPRODUCTIVE: Enlarged prostate gland. URINARY BLADDER: Mild uniform bladder wall thickening. There also appears to be small possible polyps in the gallbladder. Bladder is not distended. OSSEOUS: No significant osseous lesions. Multilevel chronic degenerative disc disease IMPRESSION: 1. The gallbladder surgically absent. The biliary tree is not dilated. 2. There is slight focal thickening of medial duodenal wall adjacent to the pancreatic head at the insertion site region of the CBD. CBD diameter itself is within normal limits and there is no dilatation of the pancreatic duct. Nevertheless, this finding may represent a mass at this level. There is no obvious regional lymphadenopathy. Correlation with blood work recommended. May require endoscopy/ERCP. 3. Uniform thickening of the urinary bladder wall and says tiny multiple neural densities probably polyps. No hydronephrosis. 4. Enlarged prostate gland. No obvious lymphadenopathy. His PMHx is significant for pretty severe anxiety. He tells me he was admitted to the hospital with a mental breakdown from anxiety. He is trying to take care of his who has pretty severe dementia. He worries about transportation and ability to afford medical treatments etc. He relies heavily on his stepson who runs his own business and is busy. He does also have a daughter but she does not have a car. There have been no changes in his health since we last spoke Review of Systems Cardiovascular Cardiovascular: Denies chest pain, Denies chest pain at rest, Denies irregular heart rhythm, Denies dyspnea and Denies dyspnea on exertion Respiratory Respiratory: Denies cough, Denies dyspnea and Denies dyspnea on exertion Gastrointestinal Gastrointestinal: Reports as per HPI Genitourinary Genitourinary: Denies dysuria, Denies urinary incontinence and Denies urinary urgency Endocrine Endocrine: Reports system reviewed and no additional complaints, except as documented Hematologic/Lymphatic Hematologic/Lymphatic: Denies easy bruising and Denies lymphadenopathy [facility] Medical History Abnormal CT of the abdomen focal thickening duodenal wall adjacent to pancreatic head--> Gen Surg, ERCP/upper endoscopy Adjustment disorder with mixed anxiety and depressed mood Barbiturate abuse Fioricet for decades; Phenobarb to manage withdrawal and maint Benign neoplasm of colon Hyperplastic 2010, repeat 2020 Benign prostatic hyperplasia (04/13/13) subjective report of elevated PSA; S/P BX 2002 Bladder wall thickening Disorganized thinking RX Risperidone Erectile dysfunction Gastroesophageal reflux disease Generalized osteoarthrosis Hammer toe of right foot Hard of hearing Hearing aids Headache chronic fioricet use; discont 09/2020 with phenobarb Hiatal hernia Hyperlipidemia Hypertensive disorder Injury of head (10/23/1951) coma x 7 days Nasal polyp polypectomy x 2 Normocytic normochromic anemia Prostatitis (01/03/13) Smoker former pipe Spinal stenosis C-spine Stress at home Suicidal ideations Trigger finger, right repaired by Dr Palacios Surgical History Cortical cataract of right eye Hx of cholecystectomy (~05/2015) Nuclear sclerotic cataract of right eye S/P rotator cuff repair Family History Sister Colon cancer Rheumatoid arthritis Father Heart disease Social History Smoking/Tobacco Use Status: Former Tobacco Use Quit Date: 11/23/10 Tobacco: How many years used: 25 Smoking risk assessment performed?: Yes Alcohol Intake: never Drug use: Never Substance use type: does not use Adopted: No Caregiver/Support person: No Foster care: No Household members: spouse Housing: house Number of Children: 3 Communication Needs: Hard of Hearing Do you need help understanding health information?: Never 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 Meds Allergies and Home Medications Allergies Allergy/AdvReac Type Severity Reaction Status Date / Time pravastatin AdvReac Intermediate Nausea Verified 05/15/21 08:39 ibuprofen AdvReac Mild Contraindic Verified 05/15/21 08:39 ated aspirin AdvReac Verified 05/15/21 08:39 Home Medications Medication Instructions Recorded Confirmed Type lisinopril 20 mg tablet 20 mg PO BID #180 tab 07/25/20 05/15/21 Rx finasteride 5 mg tablet 5 mg PO DAILY #90 tab-cap 10/03/20 05/15/21 Rx lovastatin 40 mg tablet 40 mg PO QPM #90 tab 11/30/20 05/15/21 Rx omeprazole 40 mg capsule,delayed 40 mg PO DAILY #90 cap 11/30/20 05/15/21 Rx release trazodone 50 mg tablet 50 mg PO QHS PRN #60 tab 01/09/21 05/15/21 Rx acetaminophen 325 mg tablet 650 mg PO Q4H PRN tab 02/04/21 05/13/21 History escitalopram oxalate 20 mg tablet 20 mg PO DAILY 02/07/21 05/15/21 History risperidone 0.5 mg tablet 0.5 mg PO QHS 02/07/21 05/15/21 History doxazosin 8 mg tablet 8 mg PO HS #90 tab-cap 03/22/21 05/15/21 Rx phenobarbital 64.8 mg tablet 64.8 mg PO BID #60 tab 04/01/21 05/15/21 Rx Exam Const General: healthy appearing and comfortable Resp Effort & Inspection: normal respiratory effort Auscultation: clear to auscultation bilaterally Cardio Rate: regular rate Rhythm: regular rhythm Heart Sounds: no click, no gallops and no murmurs
--- NOTE | 2021-05-15 06:33 | W.PM.ENDDOP ---
Date of service: 05/15/21 Time of Service: 09:38 Endoscopy Report DATE OF PROCEDURE: 05/15/21 PRE-OP DIAGNOSIS: Abnormal CT scan of the abdomen POST-OP DIAGNOSIS: other (Chronic gastritis, esophagitis, small Hiatal Hernia) PROCEDURE: EGD with biopsies SURGEON: Iwona Myers ANESTHESIA TYPE: General:No Airway (ASA 2/Stephanie Rain, OLLIE) ESTIMATED BLOOD LOSS: 2 PATHOLOGY: other (Antrum bx, gastric polyp, GE junction bx) COMPLICATIONS: None DISPOSITION: same day INDICATIONS: Mr. Najera is a pleasant 76-year-old gentleman who is quite anxious about life at this point. He has a lot of stressors due to his having dementia. He does not have reliable transportation. He is here today because of a abdominal wall mass felt by the primary care physician. CT scan was done which showed a focal thickening of the medial duodenal wall right at the entrance of the common bile duct. There is also a calcification in the head of the pancreas. The radiologist recommended EGD/ERCP. I discussed with the patient that unfortunately we do not do ERCPs here and that I do not feel that an EGD alone would be enough to really figure out what is going on with him. He has had some weight loss and on exam today he is slightly tender just to the right of the umbilicus in potentially I can feel a mass deep in the abdomen. MRCP was unremarkable. Proceed with EGD FINDINGS: chronic gastritis with gastric polyps throughout Normal duodenum Small Hiatal Hernia with reflux PROCEDURE DESCRIPTION: After informed consent was obtained the patient was take to the procedure room and placed in a supine position. Monitors were applied and a time out was done. The patients name, date of , procedure type, allergies to medications and metal in their body was reviewed. A bite block was placed and the patient was sedated. Once sedated and comfortable the gastroscope was advanced through the oropharynx which was grossly normal into the esophagus. The proximal and mid-esophagus were normal. In the distal esophagus there was evidence of reflux noted. The scope was advanced into the stomach and through the pylorus into the 3rd portion of the duodenum. The duodenum was noted to be normal. There were no masses. The sphincter of Oddi was normal. The scope was retracted back into the stomach. There was mild inflammation. There were numerous benign fundic polyps and biopsies were done to rule out H. pylori. There were no ulcers. The scope was retroflexed. The cardia and fundus were noted to be normal. There was a small hiatal hernia noted. The scope was retracted back into the esophagus and biopsies were done of the GE junction to rule out Escobedo's. The Z line was regular. The GE junction was at 35 cm. The scope was removed and the patient was woken up and taken back to [facility] in stable condition. Follow up: as needed. Continue on omeprazole.
--- NOTE | 2021-05-15 06:34 | W.PM.DSUDISC ---
Discharge Plan Disposition Patient Disposition: HOME Condition: Good Discharge Details Reason For Visit: WT LOSS Attending Provider: Iwona Myers Primary Care Provider: Haritha Cortez Home Meds and New Rx's Prescriptions: Continued phenobarbital 64.8 mg tablet 64.8 mg PO BID Qty: 60 RF: 5 escitalopram oxalate 20 mg tablet 20 mg PO DAILY RF: 0 risperidone 0.5 mg tablet 0.5 mg PO QHS RF: 0 lisinopril 20 mg tablet 20 mg PO BID Qty: 180 RF: 3 finasteride 5 mg tablet 5 mg PO DAILY Qty: 90 RF: 3 doxazosin 8 mg tablet 8 mg PO HS Qty: 90 RF: 3 acetaminophen 325 mg tablet 650 mg PO Q4H PRNRF: 0 lovastatin 40 mg tablet 40 mg PO QPM Qty: 90 RF: 3 omeprazole 40 mg capsule,delayed release(DR/EC) 40 mg PO DAILY Qty: 90 RF: 3 trazodone 50 mg tablet 50 mg PO QHS PRN (Reason: sleep) Qty: 60 RF: 3 Discharge Instructions Additional Instructions: Findings: mild chronic inflammation in the stomach and esophagus Follow up: with PCP in 7-10 days Please call if you develop: fevers >101.5 Nausea or Vomiting Abdominal pain that is not transient Rectal bleeding that is more then a tbsp A hard abdomen and inability to pass gas DAY SURGERY UNIT POST ENDOSCOPY INSTRUCTIONS Instructions for everyone who is given Anesthesia: For your safety, please do the following for the next 24 Hours: a. Do not drive or operate dangerous equipment b. Do not drink alcohol beverages or use any recreational drugs for the first 24 hours or while taking pain medications. The medications in your body may have a reaction that can be dangerous. c. Do not make any important decisions or sign any important papers 1. Generally there are no restrictions on your activity after a day or so has gone by, but you may feel a bit fatigued for a few days. 2. After you arrive home you may have a light meal and return to a normal diet as you can tolerate it without feeling sick to your stomach. 3. After surgery, you may feel pain or discomfort. This should be only transient, but if it persists please contact your doctor. 4. If there are any questions regarding the findings of your procedure, please feel free to contact your doctor. 6. If you are unable to contact your doctor with a problem, contact the hospital at [phone]. 7. Continue all your regular medications unless directed otherwise. I understand the above instructions and have no questions. Signature of Patient or Responsible Adult Escort Date/Time Name of Responsible Adult Escort Signature of Nurse Date/Time Activity:: Activity as Tolerated Diet:: As Tolerated Discharge Orders Discharge Orders: Discharge Order (Routine); Ordered 05/15/21 Ordered By: Iwona Myers DS: Diagnosis Discharge Diagnosis (1) Abnormal CT of the abdomen: Status: Acute
[2021-05-15 08:20] VITALS: BP 142/70; PULSE 69; RESP 16; TEMP 36.6; O2SAT 94
[2021-05-15] MEDS: Lactated Ringers 1,000 ML 80 ML IV (08:54)
[2021-05-15 09:10] VITALS: BMI 25.4
--- NOTE | 2021-05-15 09:11 | W.ANESPRE ---
General Info Date of Service Date Performed: 05/15/21 Height: 5 ft 6 in Weight: 71.668 kg Body Mass Index (BMI): 25.4 Surgical Procedure: Operation Date: 05/15/21 09:20 Proposed Procedures Side Surgeon p Gastroscopy Iwona Myers MD Meds Allergies and Home Medications Allergies Allergy/AdvReac Type Severity Reaction Status Date / Time pravastatin AdvReac Intermediate Nausea Verified 05/15/21 08:39 ibuprofen AdvReac Mild Contraindic Verified 05/15/21 08:39 ated aspirin AdvReac Verified 05/15/21 08:39 Home Medication Medication Instructions Recorded lisinopril 20 mg tablet 20 mg PO BID #180 tab 07/25/20 finasteride 5 mg tablet 5 mg PO DAILY #90 tab-cap 10/03/20 lovastatin 40 mg tablet 40 mg PO QPM #90 tab 11/30/20 omeprazole 40 mg capsule,delayed 40 mg PO DAILY #90 cap 11/30/20 release trazodone 50 mg tablet 50 mg PO QHS PRN #60 tab 01/09/21 acetaminophen 325 mg tablet 650 mg PO Q4H PRN tab 02/04/21 escitalopram oxalate 20 mg tablet 20 mg PO DAILY 02/07/21 risperidone 0.5 mg tablet 0.5 mg PO QHS 02/07/21 doxazosin 8 mg tablet 8 mg PO HS #90 tab-cap 03/22/21 phenobarbital 64.8 mg tablet 64.8 mg PO BID #60 tab 04/01/21 Current Visit Medications: Current Medications Generic Name Dose Route Start Last Admin Trade Name Freq PRN Reason Stop Dose Admin Hyoscyamine Sulfate 0.125 mg 05/15/21 06:35 Hyoscyamine 0.125 Mg Sl/Oral/Chew SL DIRECTED PRN Ringer's Solution 1,000 mls @ 80 mls/hr 05/15/21 06:00 IV 06/13/21 23:59 INFUSION [facility] IV Miscellaneous Supplies 1 each 05/15/21 06:00 Iv Access IV 06/13/21 23:59 DIRECTED [facility] Ondansetron HCl 4 mg 05/15/21 06:35 Ondansetron 4 Mg/2 Ml Vial IVP Q4H PRN PRN Nausea / Vomiting Sodium Chloride 0 ml 05/15/21 06:00 Normal Saline Flush 10 Ml Syr IV 06/13/21 23:59 PRN PRN Sodium Chloride 0 ml 05/15/21 06:00 Normal Saline 10 Ml Vial IJ 06/13/21 23:59 DIRECTED PRN Sterile Water 0 ml 05/15/21 06:00 Water,Injection,Sterile 10 Ml Vial IJ 06/13/21 23:59 DIRECTED PRN PFSH Active Problems Active Problems: Problem Status Onset Code Adjustment disorder with mixed anxiety and depressed mood F43.23 Normocytic normochromic anemia D64.9 Bladder wall thickening N32.[address] of the abdomen R93.5 Caregiver burden Z63.6 Hyponatremia E87.1 Anxiety F41.9 Insomnia G47.00 Cognitive decline R41.89 Microscopic hematuria R31.29 Disorganized thinking R41.89 Barbiturate abuse F13.10 Stress at home F43.9 Hard of hearing H91.90 Spinal stenosis M48.00 Generalized osteoarthrosis M15.9 Benign prostatic hyperplasia 04/13/13 N40.0 Benign neoplasm of colon D12.6 Hypertensive disorder I10 Hyperlipidemia E78.5 Gastroesophageal reflux disease K21.9 Medical History Medical History Abnormal CT of the abdomen focal thickening duodenal wall adjacent to pancreatic head--> Gen Surg, ERCP/upper endoscopy Adjustment disorder with mixed anxiety and depressed mood Barbiturate abuse Fioricet for decades; Phenobarb to manage withdrawal and maint Benign neoplasm of colon Hyperplastic 2010, repeat 2020 Benign prostatic hyperplasia (04/13/13) subjective report of elevated PSA; S/P BX 2002 Bladder wall thickening Disorganized thinking RX Risperidone Erectile dysfunction Gastroesophageal reflux disease Generalized osteoarthrosis Hammer toe of right foot Hard of hearing Hearing aids Headache chronic fioricet use; discont 09/2020 with phenobarb Hiatal hernia Hyperlipidemia Hypertensive disorder Injury of head (10/23/1951) coma x 7 days Nasal polyp polypectomy x 2 Normocytic normochromic anemia Prostatitis (01/03/13) Smoker former pipe Spinal stenosis C-spine Stress at home Suicidal ideations Trigger finger, right repaired by Dr Palacios Surgical History Surgical History Cortical cataract of right eye Hx of cholecystectomy (~05/2015) Nuclear sclerotic cataract of right eye S/P rotator cuff repair Tobacco Smoking/Tobacco Use Status: Former Tobacco Use Tobacco: How many years used: 25 Alcohol Alcohol Intake: never Substance Use Substance use: Never Substance use type: does not use Vital Signs and Lab Results Lab Results Blood Type / Crossmatch: No Data to Display Complete Blood Count: No Data to Display Complete Metabolic Panel: No Data to Display Liver Function Panel: No Data to Display Coagulation Panel: No Data to Display Cardiac Panel: No Data to Display Arterial Blood Gas: No Data to Display Venous Blood Gas: No Data to Display Pancreas Panel: No Data to Display Thyroid Panel: No Data to Display Infectious Disease: Coronavirus (COVID-19)(PCR) Negative (Negative) 05/13/21 09:30 05/13/21 Coronavirus 2019 Source Nasal/Nares 05/13/21 09:30 05/13/21 Blood Cultures: No Data to Display Toxicology Panel: No Data to Display Imaging and Studies Imaging and Studies EKG Summary: Conclusion Sinus bradycardia...rate< 60 Right bundle branch block...QRSd>120, terminal axis(90,270) Anesthesia Assessment and Plan Anesthesia History Personal History: No History of Anesthesia Complications Family History: No Family History of Anesthesia Complications Exercise Tolerance Exercise Tolerance: Metabolic Equivalents>4 Pertinent Negatives Pertinent Negatives: No Symptoms of GERD Cardiac & Pulmonary Exam Cardiac Exam: Normal S1/S2 Heart Sounds Pulmonary Exam: Clear Bilateral Breath Sounds Airway Exam Known Difficult Airway: No Mallampati Class: 2 Mouth Opening: Normal (> 3cm) Thyromental Distance: Greater than 3 cm Neck Range of Motion: Full ROM Neck Circumference: Normal Teeth Condition: Normal Dentition and Removable Dentures/Plates Upper ASA Classification ASA Score: ASA 2 Emergency Case?: No NPO Status NPO Status: NPO Clears >2 hours, Solids >8 hours Anesthesia Plan Resuscitation Status: Full Code Anesthesia Technique: General Anesthesia Airway Planned: Natural Airway Monitors Used: Standard Monitors
--- NOTE | 2021-05-15 09:30 | STOM_PTH ---
PATIENT: Iker Najera LOC: [facility] U#:[id number] AGE/SX: 76/M ROOM: RE05/15/[address]: Iwona Myers MD : 1945 BED: DIS: 05/15/2021 SPEC #: [id number] RECD: 05/15/21 12:54 STATUS: [facility] RE #: [id number] NATTY: 05/15/21 09:[address]: Iwona Myers DEPT: Surgical Specimen RECD BY: Usha Barnett ENTERED: 05/15/21 12:56 SP TYPE: STOMACH OTHR DR: Haritha Cortez APRN Tissues: 1 - STOMACH BIOPSY 2 - STOMACH BIOPSY 3 - ESOPHAGUS BIOPSY Procedures: GROSS AND MICRO LEVEL 4 Comments: [id number]
[2021-05-15 09:48] VITALS: BP 125/72; PULSE 68; RESP 16; TEMP 36.3; O2SAT 94
--- NOTE | 2021-05-15 10:00 | W.ANESPOSTOP ---
Postoperative Evaluation Date, Time and Location Date Performed: 05/15/21 Time Performed: 10:01 Patient Location: Day Surgery Unit Vital Signs Most Recent Imported Vital Signs: Most Recent Vital Signs Temp Pulse Resp BP Pulse Ox 36.6 C 69 16 142/70 H 94 05/15/21 08:20 05/15/21 08:20 05/15/21 08:20 05/15/21 08:20 05/15/21 08:20 Assessment Mental Status: Awake (Alert & Oriented to Patient Baseline) Airway and Respiratory Function: Patent airway with normal (patient baseline) respiratory exam Cardiovascular Function: Hemodynamically Stable Hydration Status: Adequately Hydrated Nausea & Vomiting: No Nausea or Vomiting Pain: Pt. Denies Any Pain Peripheral Nerve Block: Patient did not receive a nerve block
[2021-05-15 10:25] VITALS: BP 146/75; PULSE 62; RESP 16; TEMP 36; O2SAT 93
== END 2021-05-15 10:48 | disposition home or self-care (01) ==
LOC: SUR 08:10
PROVIDERS: PCP Nurse Practitioner Adult Health; Visit Provider Surgery
PROC: 0DJ68ZZ Inspection of Stomach, Via Natural or Artificial Opening Endoscopic (ICD-10-PCS; CPT 43235; principal; 2021-05-15 09:15)
DX: R93.5 Abnormal findings on diagnostic imaging of other abdominal regions, including retroperitoneum (principal); K31.7 Polyp of stomach and duodenum; K29.50 Unspecified chronic gastritis without bleeding; K20.90 Esophagitis, unspecified without bleeding; I10 Essential (primary) hypertension; E78.5 Hyperlipidemia, unspecified; K44.9 Diaphragmatic hernia without obstruction or gangrene
CPT/HCPCS: 43239; 88305

== ENCOUNTER 2021-07-19 14:59 | Outpatient (REF) | payer MEDICARE, SELFPAY | END 2021-07-19 15:00 | disposition home or self-care (01) | LOC: LBN 14:59 | PROVIDERS: PCP Nurse Practitioner Adult Health; Visit Provider Nurse Practitioner Adult Health | DX: R31.9 Hematuria, unspecified (principal); R36.9 Urethral discharge, unspecified | CPT/HCPCS: 87086 ==

== ENCOUNTER → 2021-08-14 12:39 | Outpatient (BNVA) | payer MEDICARE, SELFPAY | PROVIDERS: PCP Nurse Practitioner Adult Health; Visit Provider Psychiatry & Neurology Neurology | DX: G93.40 Encephalopathy, unspecified (principal); F13.10 Sedative, hypnotic or anxiolytic abuse, uncomplicated; F41.9 Anxiety disorder, unspecified; F51.05 Insomnia due to other mental disorder; F99 Mental disorder, not otherwise specified; I10 Essential (primary) hypertension | CPT/HCPCS: 99213 ==

== ENCOUNTER 2021-08-15 00:45 | Outpatient (CLI) | payer MEDICARE, SELFPAY ==
--- NOTE | 2021-08-15 07:30 | DI.US_ITS ---
Exam(s) US SOFT TISS EXTREMITY/GROIN EXAM: US SOFT TISS EXTREMITY/GROIN CLINICAL HISTORY: b/l groin swelling R>L; feels like subcutanous fat,R19.09. TECHNIQUE: Ultrasound was performed using standard protocol. COMPARISON: US ABDOMEN ULTRASOUND (P) from 10/28/2013 FINDINGS: Sonographic assessment utilizing grayscale and color Doppler imaging was performed and targeted to th e area of clinical concern. Both groins were scanned. There are multiple lymph nodes seen in both groins. The largest in the right groin measures 4 by 1 x 3.7 cm. Largest in the left groin measures 2.8 by 0.7 x 2.4 cm. These exhibit fatty tariq and have benign appearance, probably reactive. There is no obvious hernia in either groin IMPRESSION: Slightly prominent lymph nodes in both groin regions. No hernias evident. DATA REPOSITORY:
== END 2021-08-15 01:05 ==
PROVIDERS: PCP Nurse Practitioner Adult Health; Visit Provider Nurse Practitioner Adult Health
DX: R19.09 Other intra-abdominal and pelvic swelling, mass and lump (principal)
CPT/HCPCS: 76882

== ENCOUNTER → 2021-09-24 10:18 | Outpatient (BNVA) | payer MEDICARE, SELFPAY | PROVIDERS: PCP Nurse Practitioner Adult Health; Referring Provider Nurse Practitioner Adult Health; Visit Provider Nurse Practitioner Gerontology | DX: N40.0 Benign prostatic hyperplasia without lower urinary tract symptoms (principal); R31.29 Other microscopic hematuria | CPT/HCPCS: 81003; 99214 ==

== ENCOUNTER 2021-09-24 13:13 | Outpatient (REF) | payer MEDICARE, SELFPAY ==
[2021-09-24 22:00] LABS: PSA, Screening 1.1 ng/mL (0.0-6.5)
== END 2021-09-24 13:14 | disposition home or self-care (01) ==
LOC: LBN 13:13
PROVIDERS: PCP Nurse Practitioner Adult Health; Visit Provider Nurse Practitioner Gerontology
DX: Z12.5 Encounter for screening for malignant neoplasm of prostate (principal); N40.0 Benign prostatic hyperplasia without lower urinary tract symptoms; R31.9 Hematuria, unspecified
CPT/HCPCS: 84153; 87086

== ENCOUNTER → 2021-10-08 13:59 | Outpatient (BNVA) | payer MEDICARE, SELFPAY | PROVIDERS: PCP Nurse Practitioner Adult Health; Visit Provider Nurse Practitioner Gerontology | DX: N40.0 Benign prostatic hyperplasia without lower urinary tract symptoms (principal); R33.9 Retention of urine, unspecified; R31.29 Other microscopic hematuria | CPT/HCPCS: 99214 ==

== ENCOUNTER → 2021-12-11 12:42 | Outpatient (BNVA) | payer MEDICARE, SELFPAY | PROVIDERS: PCP Nurse Practitioner Adult Health; Visit Provider Psychiatry & Neurology Neurology | DX: G93.40 Encephalopathy, unspecified (principal); F13.10 Sedative, hypnotic or anxiolytic abuse, uncomplicated; F41.9 Anxiety disorder, unspecified; F51.05 Insomnia due to other mental disorder; F99 Mental disorder, not otherwise specified; R41.89 Other symptoms and signs involving cognitive functions and awareness; I10 Essential (primary) hypertension | CPT/HCPCS: 99214 ==

== ENCOUNTER 2021-12-25 01:26 | Outpatient (CLI) | payer MEDICARE, SELFPAY ==
--- NOTE | 2021-12-25 07:00 | DI.US_ITS ---
Exam(s) US RENAL EXAM: US RENAL CLINICAL HISTORY: ? hydro d/t incomplete emptying,R33.9. TECHNIQUE: Franklin scale, color and spectral Doppler were used. COMPARISON: CT CT ABDOMEN PELVIS W from 02/14/2021 MR MR ABDOMEN WO/W from 04/11/2021 FINDINGS: Renal size in cm: Right: 10.8 left: 11.9 cm Echogenicity: Normal Hydronephrosis: No Cyst or mass: No Nephrolithiasis: No Bladder:Trabeculation and mild wall thickening. No mass or stones visible. Prevoid vol: 150 cc Postvoid vol:Patient unable to void. Prostate volume 62 cc. IMPRESSION: Enlarged prostate. No evidence of hydronephrosis. Bladder wall thickening with trabeculation. DATA REPOSITORY:
== END 2021-12-25 01:46 ==
PROVIDERS: PCP Nurse Practitioner Adult Health; Visit Provider Nurse Practitioner Gerontology
DX: R33.8 Other retention of urine (principal); N40.1 Benign prostatic hyperplasia with lower urinary tract symptoms; N32.89 Other specified disorders of bladder
CPT/HCPCS: 76770

== ENCOUNTER → 2022-01-08 14:06 | Outpatient (BNVA) | payer MEDICARE, SELFPAY | PROVIDERS: PCP Nurse Practitioner Adult Health; Visit Provider Nurse Practitioner Gerontology | DX: R31.29 Other microscopic hematuria (principal); N40.0 Benign prostatic hyperplasia without lower urinary tract symptoms | CPT/HCPCS: 99214 ==

== ENCOUNTER → 2022-03-17 14:31 | Outpatient (BNVA) | payer MEDICARE, SELFPAY | PROVIDERS: PCP Nurse Practitioner Adult Health; Visit Provider Psychiatry & Neurology Neurology | DX: G93.40 Encephalopathy, unspecified (principal); F13.10 Sedative, hypnotic or anxiolytic abuse, uncomplicated; F41.9 Anxiety disorder, unspecified; F51.05 Insomnia due to other mental disorder; F99 Mental disorder, not otherwise specified; R41.89 Other symptoms and signs involving cognitive functions and awareness | CPT/HCPCS: 99213 ==

== ENCOUNTER 2022-04-08 02:18 | Outpatient (CLI) | payer MEDICARE, SELFPAY | END 2022-04-08 02:19 | disposition home or self-care (01) | LOC: LBO 02:18 | PROVIDERS: PCP Nurse Practitioner Adult Health; Visit Provider Nurse Practitioner Gerontology ==

== ENCOUNTER 2022-04-25 01:29 | Outpatient (CLI) | payer MEDICARE, SELFPAY | END 2022-04-25 01:30 | disposition home or self-care (01) | LOC: LBO 01:29 | PROVIDERS: PCP Nurse Practitioner Adult Health; Visit Provider Nurse Practitioner Adult Health ==

== ENCOUNTER 2022-05-05 04:29 | Outpatient (CLI) | payer MEDICARE, SELFPAY ==
[2022-05-05 12:49] LABS: HGB 12.2 g/dL (13.5-17.5); MCH 30.3 pg (27.0-33.0); MCHC 34.9 % (32.0-36.0); MCV 87 fL (80-95); MPV 8.4 fL (8.0-11.0); Platelet Count 353 10^3/uL (130-400); RBC 4.03 10^6/uL (4.36-5.78); RDW 12.9 % (11.8-14.1); RDW-SD 40.8 fL; Reticulocyte 1.2 % (0.5-2.4); WBC 6.48 10^3/uL (4.4-10.8)
[2022-05-05 13:35] LABS: Anion Gap 11.6 mmol/L (3-11); BUN 12 mg/dL (7-18); CO2 23.4 mmol/L (21.0-32.0); CREATININE 0.9 mg/dL (0.70-1.30); Calcium 9.1 mg/dL (8.5-10.1); Chloride 101 mmol/L (98-107); Ferritin 389 ng/mL (26-388); Glucose 98 mg/dL (74-106); Magnesium 1.8 mg/dL (1.8-2.4); Potassium 3.9 mmol/L (3.5-5.1); Sodium 136 mmol/L (136-145); TSH (W/Ref FT4) 1.02 uIU/mL (0.36-3.74)
[2022-05-05 15:28] LABS: Total Iron Binding Capacity 238 ug/dL (250-450)
[2022-05-05 15:44] LABS: Calculated LDL 60 mg/dL (<100); Cholesterol 125 mg/dL (<200); Folate 7.1 ng/mL (8.6-20.0); HDL Cholesterol 36 mg/dL (40-60); Triglyceride 147 mg/dL (<150); Vitamin B12 404 pg/mL (193-986)
[2022-05-05 23:10] LABS: PSA, Screening 1.5 ng/mL (<=6.5)
[2022-05-06 09:52] LABS: Hepatitis C Ab w Rflx HCV PCR Negative (Negative)
[2022-05-06 10:38] LABS: Syphilis Serology (RPR) Negative (Negative)
== END 2022-05-05 04:30 | disposition home or self-care (01) ==
LOC: LOS 04:29
PROVIDERS: Nurse Practitioner Gerontology; PCP Nurse Practitioner Adult Health; Visit Provider Nurse Practitioner Adult Health
DX: D64.9 Anemia, unspecified (principal); E78.5 Hyperlipidemia, unspecified; E87.1 Hypo-osmolality and hyponatremia; F43.23 Adjustment disorder with mixed anxiety and depressed mood; I10 Essential (primary) hypertension; K21.9 Gastro-esophageal reflux disease without esophagitis; R41.9 Unspecified symptoms and signs involving cognitive functions and awareness; D12.6 Benign neoplasm of colon, unspecified; N40.0 Benign prostatic hyperplasia without lower urinary tract symptoms; Z12.5 Encounter for screening for malignant neoplasm of prostate; Z11.59 Encounter for screening for other viral diseases
CPT/HCPCS: 36415; 80048; 80061; 84153; 85027; 86803; 82607; 82728; 82746; 83550; 83735; 84443; 85045; 86592

== ENCOUNTER → 2023-08-18 12:24 | Outpatient (BNVA) | payer MEDICARE, SELFPAY | PROVIDERS: PCP Nurse Practitioner Adult Health; Referring Provider Nurse Practitioner Adult Health; Visit Provider Psychiatry & Neurology Neurology | DX: G93.40 Encephalopathy, unspecified (principal); F13.10 Sedative, hypnotic or anxiolytic abuse, uncomplicated; R41.3 Other amnesia; F41.9 Anxiety disorder, unspecified; F51.05 Insomnia due to other mental disorder; F99 Mental disorder, not otherwise specified; R41.89 Other symptoms and signs involving cognitive functions and awareness; I10 Essential (primary) hypertension | CPT/HCPCS: 99214 ==

== ENCOUNTER 2023-12-07 15:09 | Outpatient (REF) | payer MEDICARE, SELFPAY ==
[2023-12-07 19:10] LABS: Abs Immature Grans 0.01 10^3/uL (0.0-0.06); Absolute Basophil Count 0.05 10^3/uL (0.0-0.2); Absolute Eosinophil Count 0.09 10^3/uL (0.0-0.7); Absolute Lymphocyte Count 1.15 10^3/uL (1.2-3.4); Absolute Monocyte Count 0.54 10^3/uL (0.1-0.8); Absolute Neutrophil Count 4.25 10^3/uL (1.2-6.7); Basophils % 0.8; Eosinophils % 1.5; HCT 39.4 % (40.0-50.0); HGB 13.6 g/dL (13.5-17.5); Immature Grans % 0.2; Lymphocytes % 18.9; MCH 31.6 pg (27.0-33.0); MCHC 34.5 % (32.0-36.0); MCV 91 fL (80-95); Monocytes % 8.9; Neutrophils % 69.7; Platelet Count 253 10^3/uL (130-400); RBC 4.31 10^6/uL (4.36-5.78); RDW-SD 40.3 fL; WBC 6.09 10^3/uL (4.4-10.8)
[2023-12-07 19:34] LABS: Anion Gap 7.7 mmol/L (3-11); BUN 14 mg/dL (7-18); CO2 28.3 mmol/L (21.0-32.0); Calcium 8.5 mg/dL (8.5-10.1); Calculated LDL 48 mg/dL (<100); Chloride 102 mmol/L (98-107); Cholesterol 136 mg/dL (<200); Estimated GFR 77.04 (mL/min/1.73m2); Glucose 121 mg/dL (74-106); HDL Cholesterol 39 mg/dL (40-60); Sodium 138 mmol/L (136-145); Triglyceride 246 mg/dL (<150)
[2023-12-08 18:53] LABS: PSA, Screening 1.2 ng/mL (<=6.5)
== END 2023-12-07 15:10 | disposition home or self-care (01) ==
LOC: LBN 15:09
PROVIDERS: PCP Nurse Practitioner Adult Health; Visit Provider Internal Medicine Endocrinology, Diabetes & Metabolism
DX: D64.9 Anemia, unspecified (principal); E78.5 Hyperlipidemia, unspecified; I10 Essential (primary) hypertension; N40.0 Benign prostatic hyperplasia without lower urinary tract symptoms; Z12.5 Encounter for screening for malignant neoplasm of prostate
CPT/HCPCS: 80048; 80061; 84153; 85025

== ENCOUNTER → 2024-02-11 13:11 | Outpatient (BNVA) | payer MEDICARE, SELFPAY | PROVIDERS: PCP Nurse Practitioner Adult Health; Referring Provider Nurse Practitioner Adult Health; Visit Provider Physical Therapy Assistant | DX: Z12.11 Encounter for screening for malignant neoplasm of colon (principal); K22.70 Barrett's esophagus without dysplasia; Z86.010 Personal history of colon polyps | CPT/HCPCS: 99214 ==

== ENCOUNTER 2024-02-18 09:48 | Day surgery (SDC) | payer MEDICARE, SELFPAY ==
--- NOTE | 2024-02-17 18:28 | W.ANESPRE ---
General Info Date of Service Date Performed: 02/18/24 Height: 5 ft 6 in Weight: 78.471 kg Body Mass Index (BMI): 27.9 Surgical Procedure: Operation Date: 02/18/24 11:20 Proposed Procedure Side Surgeon p Colonoscopy/Gastroscopy Kenn Hoskins MD Meds Allergies and Home Medications Allergies Allergy/AdvReac Type Severity Reaction Status Date / Time pravastatin AdvReac Intermediate Nausea Verified 02/18/24 10:08 ibuprofen AdvReac Mild Contraindic Verified 02/18/24 10:08 ated aspirin AdvReac Unknown Other (See Verified 02/18/24 10:08 Comment) Home Medication Medication Instructions Recorded acetaminophen 325 mg tablet 650 mg PO Q4H PRN 02/04/21 doxazosin 8 mg tablet See Rx Instructions .Route 03/04/23 .COMPLEX #90 tabs finasteride 5 mg tablet See Rx Instructions .Route 10/05/23 .COMPLEX #90 tabs amlodipine 5 mg-benazepril 40 mg 1 cap PO DAILY #90 caps 12/07/23 capsule lovastatin 40 mg tablet See Rx Instructions .Route 12/07/23 .COMPLEX #90 tabs omeprazole 40 mg capsule,delayed See Rx Instructions .Route 12/07/23 release .COMPLEX #90 caps triamcinolone acetonide 0.1 % 1 applic topical BID PRN left 12/07/23 topical cream forearm #15 grams phenobarbital 64.8 mg tablet 64.8 mg PO BID #60 tabs 02/17/24 Current Visit Medications: Current Medications Generic Name Dose Route Start Last Admin Trade Name Freq PRN Reason Stop Dose Admin Ringer's Solution 1,000 mls @ 80 mls/hr 02/18/24 06:00 IV 03/18/24 23:59 INFUSION KRYSTLE IV Miscellaneous Supplies 1 each 02/18/24 06:00 Iv Access IV 03/18/24 23:59 DIRECTED KRYSTLE Sodium Chloride 0 ml 02/18/24 06:00 Normal Saline Flush 10 Ml Syr IV 03/18/24 23:59 PRN PRN Sodium Chloride 0 ml 02/18/24 06:00 Normal Saline 10 Ml Vial IJ 03/18/24 23:59 DIRECTED PRN Sterile Water 0 ml 02/18/24 06:00 Water,Injection,Sterile 10 Ml Vial IJ 03/18/24 23:59 DIRECTED PRN PFSH Active Problems Active Problems: Problem Status Onset Code Encounter for screening colonoscopy Z12.11 Dependent for transportation Z74.8 Escobedo's esophagus ~04/2021 K22.70 Adjustment disorder with mixed anxiety and depressed mood F43.23 Normocytic normochromic anemia ~2012 D64.9 Bladder wall thickening N32.89 Caregiver burden Z63.6 Hyponatremia E87.1 Anxiety F41.9 Insomnia G47.00 Cognitive decline R41.89 Microscopic hematuria R31.29 Hard of hearing H91.90 Benign prostatic hyperplasia 04/13/13 N40.0 Benign neoplasm of colon D12.6 Hypertensive disorder I10 Hyperlipidemia E78.5 Gastroesophageal reflux disease K21.9 Medical History Medical History Abnormal CT of the abdomen focal thickening duodenal wall adjacent to pancreatic head--> Gen Surg, ERCP/upper endoscopy; MRCP NEG & upper endoscopy showed Barretts Disorganized thinking Care bed Spring 2020; RX Risperidone-->NERISSA Kramer Suicidal ideations Barbiturate abuse Fioricet for decades; Phenobarb to manage withdrawal and maint Stress at home Hammer toe of right foot Trigger finger, right repaired by Dr Palacios Erectile dysfunction Generalized osteoarthrosis Headache chronic fioricet use; discont 09/2020 with phenobarb Hiatal hernia Injury of head (10/23/1951) coma x 7 days Nasal polyp polypectomy x 2 Prostatitis (01/03/13) Smoker former pipe Spinal stenosis C-spine Surgical History Surgical History History of esophagogastroduodenoscopy (EGD) (~04/2021) Cortical cataract of right eye Nuclear sclerotic cataract of right eye Hx of cholecystectomy (~05/2015) S/P rotator cuff repair Tobacco Smoking/Tobacco Use Status: Former Tobacco Use Alcohol Alcohol Intake: never Substance Use Substance use: Current Sobriety Substance use type: former substance user Vital Signs and Lab Results Lab Results Blood Type / Crossmatch: No Data to Display Complete Blood Count: No Data to Display Complete Metabolic Panel: No Data to Display Liver Function Panel: No Data to Display Coagulation Panel: No Data to Display Cardiac Panel: No Data to Display Arterial Blood Gas: No Data to Display Venous Blood Gas: No Data to Display Pancreas Panel: No Data to Display Thyroid Panel: No Data to Display Infectious Disease: No Data to Display Blood Cultures: No Data to Display Toxicology Panel: No Data to Display Imaging and Studies Imaging and Studies Study information below may be from another EMR and interpreted by another provider. Please see original notes in EMR for more complete details. EKG Summary: 02/10: Sinus bradycardia...rate< 60 Right bundle branch block...QRSd>120, terminal axis(90,270) Anesthesia Assessment and Plan Anesthesia History Personal History: No History of Anesthesia Complications Family History: No Family History of Anesthesia Complications Exercise Tolerance Exercise Tolerance: Metabolic Equivalents>4 Cardiac & Pulmonary Exam Cardiac Exam: Normal S1/S2 Heart Sounds Pulmonary Exam: Clear Bilateral Breath Sounds Implantable Cardiac Device Does patient have a Pacemaker or an ICD?: No Airway Exam Known Difficult Airway: No Mallampati Class: 2 Mouth Opening: Normal (> 3cm) Thyromental Distance: Greater than 3 cm Neck Range of Motion: Full ROM Neck Circumference: Normal Teeth Condition: Normal Dentition and Removable Dentures/Plates Upper ASA Classification ASA Score: ASA 2 Emergency Case?: No NPO Status NPO Status: NPO Clears >2 hours, Solids >8 hours Anesthesia Plan Resuscitation Status: Full Code Anesthesia Technique: General Anesthesia Airway Planned: Natural Airway Monitors Used: Standard Monitors Preoperative Comments:: 78 yo male for EGD/colo. Sig PMHx: HTN, GERD/barretts, anxiety/depression, c spine stenosis, nasal polyp. former smoker. Previous Anes: - EG, prop, 4%, natural airway, no issues.
--- NOTE | 2024-02-17 18:49 | PDOC.DSDIS_ITS ---
Date of service: 02/18/24 Time of Service: 12:36 Discharge Plan Disposition Patient Disposition: Home Condition: Good Discharge Details Reason For Visit: Barretts esophagus and screening colonoscopy Attending Provider: Kenn Hoskins Primary Care Provider: Haritha Cortez Home Meds and New Rx's Prescriptions: Continued lovastatin 40 mg tablet See Rx Instructions .ROUTE .COMPLEX Qty: 90 3RF Dose Instruction: TAKE ONE TABLET BY MOUTH EVERY EVENING FOR CHOLESTEROL Rx Instructions: TAKE ONE TABLET BY MOUTH EVERY EVENING FOR CHOLESTEROL omeprazole 40 mg capsule,delayed release(DR/EC) See Rx Instructions .ROUTE .COMPLEX Qty: 90 3RF Dose Instruction: TAKE ONE CAPSULE BY MOUTH EVERY DAY Rx Instructions: TAKE ONE CAPSULE BY MOUTH EVERY DAY amlodipine-benazepril 5-40 mg capsule 1 cap PO DAILY Qty: 90 3RF Rx Instructions: New BP med 11/2023 triamcinolone acetonide 0.1 % cream 1 applic topical BID PRN (Reason: left forearm) Qty: 15 0RF Rx Instructions: For left arm skin lesion--start by using twice per day for 2 weeks--call me if not improving acetaminophen 325 mg tablet 650 mg PO Q4H PRN doxazosin 8 mg tablet See Rx Instructions .ROUTE .COMPLEX Qty: 90 3RF Dose Instruction: TAKE ONE TABLET BY MOUTH AT BEDTIME Rx Instructions: TAKE ONE TABLET BY MOUTH AT BEDTIME finasteride 5 mg tablet See Rx Instructions .ROUTE .COMPLEX Qty: 90 3RF Dose Instruction: TAKE ONE TABLET BY MOUTH EVERY DAY Rx Instructions: TAKE ONE TABLET BY MOUTH EVERY DAY phenobarbital 64.8 mg tablet 64.8 mg PO BID Qty: 60 5RF Discontinued bisacodyl [Dulcolax (bisacodyl)] 5 mg tablet,delayed release (DR/EC) 5 mg PO ONCE Qty: 4 0RF Rx Instructions: Take per colonoscopy instructions provided by ordering providers office polyethylene glycol 3350 17 gram/dose powder 17 g PO ONCE Qty: 238 0RF Rx Instructions: Take per colonoscopy instructions provided by ordering providers office Discharge Instructions Instructions: Diverticulosis (GEN), Colorectal Polyps (GEN), Escobedo Esophagus (GEN), Diverticulosis Diet (GEN) Additional Instructions: Sandra, we were able to complete your endoscopies today without much difficulty. Your upper endoscopy shows evidence of Escobedo's esophagus. Just like previously. Based on the previous report, I do not suspect this is any worse. I did do some biopsies of the area just to be safe. You also have several polyps within your stomach. Again, these were previously seen on endoscopy. I did remove a polyp to make sure it is nothing dangerous. Ge nerally, when you have polyps in this part of your stomach, they are benign, or noncancerous. Your colonoscopy also went very smoothly. You have just a little bit of diverticulosis. Diverticula are weak spots in the wall of the colon that typically accumulate as we get older. I also found a single polyp. I removed this today, and we will send it off for testing. Once I know the nature of the polyp, as well as the biopsies mentioned above, I will be in touch with recommendations for follow-up. If you have any questions in the meantime, please do not hesitate to call or ask at any point. 1. If tolerated, consume a soft, low fiber diet for 1-2 days. 2. Do not drive, drink alcohol, operate machinery, make critical decisions, or do activities that require coordination or balance for 24 hours. 3. Because air was put into your colon during the procedure, expelling air from your rectum (passing gas or farting) is normal. 4. You may not have a bowel movement for 1-3 days because of the colonoscopy prep. This is normal. 5. You may experience a sore throat for 24 to 48 hours. You may use throat lozenges or gargle with warm salt water to relieve the discomfort. 6. Because air was put into your stomach during the procedure, you may experience some belching. 7. Go directly to the emergency room if you notice any of the following: Develop chills (warm to touch), or if you have a thermometer and your temperature is above 101 Difficulty breathing or difficultly swallowing Persistent vomiting Severe abdominal pain, other than gas cramps Severe chest pain Black, tarry stools Any bleeding ? exceeding one tablespoon 8. Call your physician if the site where your intravenous was started becomes red, swollen, painful, and warm to touch. 9. Your physician has reviewed your pre-procedure medications. Please continue to take those medications as previously ordered. You will be given specific information/education regarding any changes to your medications before leaving. Stand Alone Forms: Anesthesia Discharge InstConor Cole (DSU) Activity:: Activity as Tolerated Diet:: As Tolerated Discharge Orders Discharge Orders: Discharge Order (Routine); Ordered 02/17/24 Ordered By: Kenn Hoskins DS: Diagnosis Discharge Diagnosis (1) Escobedo's esophagus: Status: Acute
--- NOTE | 2024-02-17 18:51 | W.PM.ENDDOP ---
Date of service: 02/18/24 Time of Service: 12:39 Endoscopy Report DATE OF PROCEDURE: 02/18/24 PRE-OP DIAGNOSIS: Barretts esophagus and screening colonoscopy POST-OP DIAGNOSIS: other (Escobedo's esophagus, gastric fundic polyps; diverticulosis, colon polyp) PROCEDURE: EGD and colonoscopy SURGEON: Kenn Hoskins ANESTHESIA TYPE: General:No Airway ESTIMATED BLOOD LOSS: 10 PATHOLOGY: other (Random biopsies of gastric antrum and body to rule out Helicobacter pylori, gastric fundic polyp, four-quadrant biopsies of Escobedo's esophagus; 0.5 cm colon polyp at 20 cm from the anus) COMPLICATIONS: None DISPOSITION: same day INDICATIONS: Iker is a 78 year old man with a history of Barretts esophagus who needs his next screening EGD and colonoscopy PREP: Miralax/Dulcolax PROCEDURE START TIME: 11:48 PROCEDURE END TIME: 12:18 COLONOSCOPY RETRACTION TIME: 9 FINDINGS: Short segment Escobedo's esophagus, gastric fundic polyps; diverticulosis, 0.5 cm colon polyp PROCEDURE DESCRIPTION: After the initiation of anesthesia, and with the assistance of a bite block, I advanced a standard gastroscope through the mouth past the hypopharynx and into the esophagus.? Under the direct vision of the scope, I advanced down the esophagus into the stomach.? Once I entered the stomach, I performed a brief inspection. There were numerous fundic gland polyps. Narrowband imaging was used to assist with analysis. Polypectomy was performed as a b2b outside sales representative sample. This was done with cold forceps without any significant bleeding. I performed retroflexion towards the gastric cardia.? There might be a grade 1 hiatal hernia.? After that, I gently advanced the scope around the incisura angularis and examined the pylorus.? This also appeared normal.? Next, I advanced the scope through the pylorus into the duodenum.? The mucosa was pink and healthy appearing.? There were no abnormalities.?Next, I began retracting the endoscope.? I brought the camera back into the stomach and perform random biopsies of the gastric antrum and body to rule out Helicobacter pylori.? I then gently desufflated some of the stomach, and withdrew the endoscope into the distal esophagus. There was irregularity of the Z-line extending from about 34 to 36 cm. Four-quadrant biopsies were performed with cold forceps without any issues.. ?Finally, I withdrew the scope along the length of the esophagus taking great care to examine the entirety of the mucosa.? I did not appreciate any abnormalities. Next removed Iker into the left lateral decubitus position. I began by performing an external anorectal exam.? Perineum and skin were normal, as was the anal verge.? There was no evidence of external hemorrhoids.? Next, I performed a digital rectal exam.? I did not appreciate any abnormal findings.? Next, I advanced a colonoscope into the rectal vault.? I performed retroflexion.? This appeared normal.? Using insufflation, I then advanced the colonoscope beyond the rectal folds and into the sigmoid colon before advancing towards the cecum.? There were some occasional diverticuli.? The scope was noted to be in the cecum by identification of the ileocecal valve and appendiceal orifice.? I then began withdrawing the colonoscope using repeated irrigation as necessary for full evaluation of the colonic mucosa. Around 20 cm from the anal verge I identified a 0.5 cm polyp. ?It appeared flat in character. ?I was able to remove this with a cold forcep polypectomy. ?I examined the site, and there was minimal bleeding. ?Once this was completed, I continued to withdraw the scope and examine the remainder of the colonic mucosa.?Once the scope was withdrawn to the level of the rectum, great care was taken to examine portions of the rectal folds.? Finally, the scope was withdrawn and the patient was brought to the same-day surgery recovery unit as the anesthetic wore off. ?The findings and instructions were shared with the patient prior to discharge.
[2024-02-18 09:50] VITALS: BP 167/87; PULSE 84; RESP 16; TEMP 36.4; O2SAT 98
[2024-02-18] MEDS: Lactated Ringers 1,000 ML 80 ML IV (10:22)
[2024-02-18 11:34] VITALS: BMI 27.9
--- NOTE | 2024-02-18 11:50 | STOM_PTH ---
PATIENT: Iker Najera LOC: [facility] U#:[id number] AGE/SX: 78/M ROOM: RE02/18/[address]: Kenn Hoskins MD : 1945 BED: DIS: 02/18/2024 SPEC #: [id number] RECD: 02/18/24 13:01 STATUS: [facility] #: [id number] NATTY: 02/18/24 11:[address]: Kenn Hoskins DEPT: Surgical Specimen RECD BY: Usha Barnett ENTERED: 02/18/24 13:03 SP TYPE: STOMACH OTHR DR: Haritha Cortez APRN Tissues: 1 - STOMACH BIOPSY 2 - STOMACH BIOPSY 3 - STOMACH BIOPSY 4 - ESOPHAGUS BIOPSY 5 - BIOPSY BOWEL Procedures: GROSS AND MICRO LEVEL 4 Comments: [id number]
[2024-02-18 12:23] VITALS: BP 122/68; PULSE 77; RESP 16; TEMP 36.3; O2SAT 97
--- NOTE | 2024-02-18 12:31 | W.ANESPOSTOP ---
Postoperative Evaluation Date, Time and Location Date Performed: 02/18/24 Time Performed: 12:32 Patient Location: Day Surgery Unit Vital Signs Most Recent Imported Vital Signs: Most Recent Vital Signs Temp Pulse Resp BP Pulse Ox 36.3 C L 77 16 122/68 97 02/18/24 12:23 02/18/24 12:23 02/18/24 12:23 02/18/24 12:23 02/18/24 12:23 Pain Score Most Recent Pain Score: Most Recent Pain Score Pain Level 0 02/18/24 12:23 Assessment Mental Status: Awake (Alert & Oriented to Patient Baseline) Airway and Respiratory Function: Patent airway with normal (patient baseline) respiratory exam Cardiovascular Function: Hemodynamically Stable Hydration Status: Adequately Hydrated Nausea & Vomiting: No Nausea or Vomiting Pain: Pt. Denies Any Pain Peripheral Nerve Block: Patient did not receive a nerve block
[2024-02-18 12:53] VITALS: BP 151/77; PULSE 62; RESP 18; TEMP 36.3; O2SAT 98
== END 2024-02-18 13:14 | disposition home or self-care (01) ==
LOC: SUR 09:49
PROVIDERS: PCP Nurse Practitioner Adult Health; Visit Provider Surgery
PROC: (CPT 45380; principal; 2024-02-18 11:15)
DX: Z12.11 Encounter for screening for malignant neoplasm of colon (principal); K63.5 Polyp of colon; K57.30 Diverticulosis of large intestine without perforation or abscess without bleeding; K22.70 Barrett's esophagus without dysplasia; K31.7 Polyp of stomach and duodenum; I10 Essential (primary) hypertension; K21.9 Gastro-esophageal reflux disease without esophagitis
CPT/HCPCS: 45380; 43239; 88305; J2405; J2704

== ENCOUNTER 2025-03-20 14:26 | Outpatient (REF) | payer MEDICARE, SELFPAY ==
[2025-03-20 15:46] LABS: Bilirubin Negative (Negative); Blood Small (Negative); Clarity Sl Cloudy (Clear); Glucose Negative (Negative); Ketones Negative (Negative); Leukocyte Esterase Large (Negative); Nitrite Negative (Negative); Specific Gravity 1.015 (1.005-1.025); Urobilinogen 0.2 mg/dL (Up to 0.2)
[2025-03-20 15:55] LABS: WBC >50 HPF (0-5)
[2025-03-20 15:56] LABS: C & S Indicated? Yes
[2025-03-20 16:06] LABS: Anion Gap 9.6 mmol/L (3-11); BUN 13 mg/dL (7-18); CO2 29.4 mmol/L (21.0-32.0); CREATININE 0.9 mg/dL (0.70-1.30); Calcium 8.7 mg/dL (8.5-10.1); Calculated LDL 47 mg/dL (<100); Chloride 101 mmol/L (98-107); Cholesterol 151 mg/dL (<200); Estimated GFR 86.34 (mL/min/1.73m2); Glucose 128 mg/dL (74-106); HDL Cholesterol 43 mg/dL (>or=40); Potassium 3.9 mmol/L (3.5-5.1); Sodium 140 mmol/L (136-145); Triglyceride 309 mg/dL (<150)
== END 2025-03-20 14:27 | disposition home or self-care (01) ==
LOC: LBN 14:26
PROVIDERS: PCP Nurse Practitioner Adult Health; Visit Provider Nurse Practitioner Adult Health
DX: N32.89 Other specified disorders of bladder (principal); N40.0 Benign prostatic hyperplasia without lower urinary tract symptoms; K21.9 Gastro-esophageal reflux disease without esophagitis; E78.2 Mixed hyperlipidemia; I10 Essential (primary) hypertension
CPT/HCPCS: 80048; 80061; 81003; 81015; 87086